=== PATIENT | male | born 1965 | race Two or more races ===

== ENCOUNTER 2024-08-28 13:49 | Outpatient (RCR) | payer MEDICAID, SELFPAY | END 2024-09-09 23:59 | disposition home or self-care (01) | LOC: SCTC 13:49 | PROVIDERS: PCP Family Medicine; Referring Provider Family Medicine; Visit Provider Nurse Practitioner Family | DX: D50.9 Iron deficiency anemia, unspecified (principal); I10 Essential (primary) hypertension; E11.9 Type 2 diabetes mellitus without complications | CPT/HCPCS: 99212; G0463 ==

== ENCOUNTER 2024-09-28 11:43 | Outpatient (RCR) | payer MEDICAID, SELFPAY | END 2024-10-10 23:59 | disposition home or self-care (01) | LOC: SCTC 11:43 | PROVIDERS: PCP Family Medicine; Referring Provider Family Medicine; Visit Provider Nurse Practitioner Family | DX: Z09 Encounter for follow-up examination after completed treatment for conditions other than malignant neoplasm (principal); Z86.2 Personal history of diseases of the blood and blood-forming organs and certain disorders involving the immune mechanism; I10 Essential (primary) hypertension; E11.9 Type 2 diabetes mellitus without complications | CPT/HCPCS: 99212; G0463 ==

== ENCOUNTER 2024-11-01 13:13 | Outpatient (RCR) | payer MEDICAID, SELFPAY | END 2024-11-10 23:59 | disposition home or self-care (01) | LOC: SCTC 13:13 | PROVIDERS: PCP Family Medicine; Referring Provider Family Medicine; Visit Provider Nurse Practitioner Family | DX: D50.9 Iron deficiency anemia, unspecified (principal); I10 Essential (primary) hypertension; E11.9 Type 2 diabetes mellitus without complications; Z79.4 Long term (current) use of insulin; Z79.84 Long term (current) use of oral hypoglycemic drugs | CPT/HCPCS: 96365; 96375; J2919; J3490; J7040; J7050; Q0138 ==

== ENCOUNTER 2024-11-16 07:43 | Outpatient (CLI) | payer MEDICAID, SELFPAY ==
[2024-11-15 12:10] LABS: Basophils % (Auto) 0 % (0-2.5); Eosinophils % (Auto) 0 % (0-10); Hematocrit 34.5 % (41.0-53.0); Hemoglobin 10.8 g/dL (13.5-16.0); Immature Granulocytes % (Auto) 3 % (0-0); Immature Granulocytes Auto 0.35 Thou/mm3 (0.00-0.00); Lymphocytes % (Auto) 8 % (10-50); Mean Corpuscular HGB Conc 31.3 g/dl (31.0-37.0); Mean Corpuscular Hemoglobin 26.9 pg (25.0-35.0); Mean Corpuscular Volume 86 fL (80-100); Monocytes # (Auto) 0.6 Thou/mm3 (0.0-0.8); Monocytes % (Auto) 5 % (0-12); Neutrophils # (Auto) 9.8 Thou/mm3 (1.8-7.7); Neutrophils % (Auto) 83 % (37-80); Nucleated Red Blood Cell % 0 /100 WBC (0); Platelet Count 243 Thou/mm3 (140-440); RDW Standard Deviation 51.2 fL (35.1-43.9); Red Blood Count 4.01 Miln/mm3 (4.50-5.90); White Blood Count 11.8 Thou/mm3 (3.8-10.6)
[2024-11-15 12:32] LABS: Blood Urea Nitrogen 25 mg/dL (9-23); Creatinine (Component) 0.9 mg/dL (0.6-1.3); eGFR > 60 See Note
[2024-11-15 13:06] LABS: INR 0.9 (0.9-1.3); Partial Thromboplastin Time 24.2 Seconds (22.0-36.0); Prothrombin Time 10.3 Seconds (9.0-12.2)
[2024-11-16] VITALS (7 sets, daily range): BP systolic 131–184; BP diastolic 75–95; PULSE 61–86; RESP 12–18; TEMP 36–36.8; O2SAT 98–100; BMI 24.9
--- NOTE | 2024-11-16 08:30 | XR_ITS ---
Examination: CT-guided percutaneous bone marrow aspiration right posterior superior iliac crest CT-guided percutaneous bone biopsy deep right posterior superior iliac crest CT pelvis without intravenous contrast INDICATIONS: Anemia unspecified etiology Date and time of procedure: November 16, 2024 0910 hours Informed consent provided. A timeout was completed verifying correct patient, procedure, site and positioning. Technique: Axial 3 mm sections were obtained for localization of the right posterior superior iliac crest Appropriate area is marked. The patient's site was prepped and draped in sterile fashion Maximal sterile barrier technique utilized, including hand hygiene Local anesthesia was obtained with 1% lidocaine. Low dose protocols were performed. One or more of the following dose reduction techniques were used; automated exposure control, adjustment of the mA and/or KV according to patient size, use of iterative reconstruction technique. Utilizing CT fluoroscopic guidance 14-gauge bone biopsy needle placed in the right posterior superior iliac crest 10 cc marrow aspirate obtained 5 cm bone core obtained Patient appears in stable condition during this procedure. At completion of the procedure, the patient is in satisfactory condition. Estimated blood loss 2 cc Complete pathology report to follow. Impression: Successful CT-guided percutaneous bone marrow aspiration right posterior superior iliac crest Successful CT-guided percutaneous bone biopsy deep right posterior superior iliac crest
[2024-11-16] MEDS: SODIUM CHLORIDE 0.9% 500 ML 500 ML 20 ML IV (09:10)
[2024-11-16] MEDS: fentaNYL CIT INJ 50 mCg/ML AMP 2ML IVP (09:23)
[2024-11-16 09:50] LABS: Flow Cytometry* See Sep Rpt
== END 2024-11-16 10:30 | disposition home or self-care (01) ==
LOC: SIRX 07:52
PROVIDERS: Radiology Diagnostic Radiology; PCP Family Medicine; Referring Provider Nurse Practitioner Family; Visit Provider Nurse Practitioner Family
DX: D50.9 Iron deficiency anemia, unspecified (principal); Z01.812 Encounter for preprocedural laboratory examination
CPT/HCPCS: 38221; 36415; 77012; 82565; 84520; 85025; 85610; 85730; J3010; J7040

== ENCOUNTER 2024-12-20 07:30 | Outpatient (RCR) | payer MEDICAID, SELFPAY | END 2025-01-08 23:59 | disposition home or self-care (01) | LOC: SCTC 07:30 | PROVIDERS: PCP Family Medicine; Referring Provider Family Medicine; Visit Provider Nurse Practitioner Family | DX: D50.9 Iron deficiency anemia, unspecified (principal); D72.829 Elevated white blood cell count, unspecified; I10 Essential (primary) hypertension; E11.9 Type 2 diabetes mellitus without complications | CPT/HCPCS: 99212; G0463 ==

== ENCOUNTER 2025-01-23 14:08 | Outpatient (RCR) | payer MEDICAID, SELFPAY | END 2025-02-07 23:59 | disposition home or self-care (01) | LOC: SCTC 14:08 | PROVIDERS: PCP Family Medicine; Referring Provider Family Medicine; Visit Provider Nurse Practitioner Family | DX: Z09 Encounter for follow-up examination after completed treatment for conditions other than malignant neoplasm (principal); Z86.2 Personal history of diseases of the blood and blood-forming organs and certain disorders involving the immune mechanism; R10.9 Unspecified abdominal pain; R07.9 Chest pain, unspecified; R06.02 Shortness of breath; R63.0 Anorexia; Z68.25 Body mass index [BMI] 25.0-25.9, adult; Z87.19 Personal history of other diseases of the digestive system | CPT/HCPCS: 99212; G0463 ==

== ENCOUNTER 2025-01-23 15:45 | Emergency (ER) | payer MEDICAID, SELFPAY ==
[2025-01-23 15:46] VITALS: BMI 28.3
[2025-01-23 16:03] VITALS: BP 168/71; PULSE 76; RESP 18; TEMP 36.9; O2SAT 99
--- NOTE | 2025-01-23 16:21 | XR_ITS ---
Examination: PA lateral chest 2 views Technique: Upright PA lateral chest 2 views Exam date and time: January 23, 2025 1719 hrs. Indications: Onset chest pain today Findings: Normal heart size No lobar pneumonia or pulmonary edema Right shoulder calcific tendinitis Impression: No pneumonia or pulmonary edema
--- NOTE | 2025-01-23 16:21 | EKG_ITS ---
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
--- NOTE | 2025-01-23 16:29 | XR_ITS ---
Examination: Ultrasound liver Elastography Exam date and time: January 23, 2025 1457 hrs. Indications: Alcohol abuse history several years, epigastric pain 3 weeks Findings: Liver 17.4 cm fatty infiltration Normal hepatopedal portal venous flow Patent hepatic veins Tissue stiffness average 1.5 mm/s, [id number] liver fibrosis Impression: Mild hepatomegaly fatty infiltration Wxuz-ik-qhzfevft liver fibrosis
--- NOTE | 2025-01-23 16:32 | PD.EDRME ---
Rapid Medical Screening Exam RME Arrival date/time: 01/23/25 15:45 Chief Complaint: Abdominal Pain Time Seen by Provider: 01/23/25 15:54 Vital signs: Vital Signs Temperature 98.4 F 01/23/25 16:03 Pulse Rate 76 01/23/25 16:03 Respiratory Rate 18 01/23/25 16:03 Blood Pressure 168/71 H 01/23/25 16:03 Pulse Oximetry (%) 99 01/23/25 16:03 Oxygen Delivery Method Room Air 01/23/25 16:03 Vital signs reviewed by provider: Yes RME Narrative: 59-year-old male, with a history of metabolic syndrome, duodenal and gastric ulcer, GI bleed, and iron deficiency anemia, presents to the ED with a complaint of ongoing abdominal pain in the pit of his stomach as well as shortness of breath. He was sent by his primary care physician for workup and evaluation. He has been having nausea but no vomiting, as well as constipation issues he denies any fever or chills, vomiting or diarrhea. His social history includes heavy EtOH abuse, quitting 30 years ago. I have greeted and performed a focused initial assessment of this patient. A comprehensive ED assessment and evaluation of the patient, analysis of all test results, and completion of the medical decision making process will be conducted by additional ED providers. Labs, urine, EKG, radiology studies ordered.
[2025-01-23 17:09] LABS: Basophils % (Auto) 0 % (0-2.5); Eosinophils % (Auto) 0 % (0-10); Hematocrit 39.1 % (41.0-53.0); Immature Granulocytes % (Auto) 3 % (0-0); Lymphocytes # (Auto) 0.7 Thou/mm3 (1.0-4.8); Lymphocytes % (Auto) 5 % (10-50); Mean Corpuscular HGB Conc 33.2 g/dl (31.0-37.0); Mean Corpuscular Hemoglobin 28.7 pg (25.0-35.0); Mean Corpuscular Volume 86 fL (80-100); Monocytes # (Auto) 0.7 Thou/mm3 (0.0-0.8); Monocytes % (Auto) 4 % (0-12); Neutrophils # (Auto) 13.1 Thou/mm3 (1.8-7.7); Neutrophils % (Auto) 88 % (37-80); Nucleated Red Blood Cell # 0.02 Thou/mm3 (0.00-0.00); Nucleated Red Blood Cell % 0 /100 WBC (0); Platelet Count 263 Thou/mm3 (140-440); RDW Standard Deviation 46.4 fL (35.1-43.9); Red Blood Count 4.53 Miln/mm3 (4.50-5.90); White Blood Count 14.9 Thou/mm3 (3.8-10.6)
[2025-01-23 17:16] LABS: Collection Type, Urine Clean Catch
[2025-01-23 17:20] LABS: Partial Thromboplastin Time 24.1 Seconds (22.0-36.0); Prothrombin Time 10.5 Seconds (9.0-12.2)
[2025-01-23 17:23] LABS: Alanine Aminotransferase 46 U/L (10-49); Albumin, Serum 4.1 gm/dL (3.4-4.8); Alkaline Phosphatase 70 U/L (46-116); Amylase 89 U/L (30-118); Anion Gap 9 (7-16); Aspartate Amino Transferase 21 U/L (0-34); B-Type Natriuretic Peptide 115 pg/mL (0-100); BUN/Creatinine Ratio 25 Ratio (12-20); Bilirubin,Total 0.2 mg/dL (0.3-1.2); Blood Urea Nitrogen 27 mg/dL (9-23); Calcium 10.4 mg/dL (8.3-10.6); Calcium (Corrected) 10.4 mg/dL (8.5-10.1); Carbon Dioxide 22.7 mMol/L (20.0-31.0); Chloride 108 mMol/L (98-107); Creatinine (Component) 1.1 mg/dL (0.6-1.3); Estimated Creatinine Clearance 56.2 mL/min (>60); Globulin 2.1 gm/dL (2.3-3.5); Glucose 169 mg/dL (74-106); LDH (Lactate Dehydrogenase) 278 U/L (120-246); Lipase 53 U/L (12-53); Magnesium 1.5 mg/dL (1.6-2.6); Osmolality,Calculated 288 (275-295); Potassium 4.1 mMol/L (3.4-5.1); Sodium 140 mMol/L (136-145); Total Protein 6.2 gm/dL (5.7-8.2); Troponin I < 0.020 ng/mL (0.0-0.045); eGFR > 60 See Note
[2025-01-23 17:24] LABS: Bilirubin,Urine Negative (Negative); Blood,Urine Negative (Negative); Clarity,Urine Clear (Clear/Hazy); Color,Urine Lt-Yellow (Lt Yel-Yel); Glucose, Urine Negative (Negative); Hyaline Casts,Urine < 1 /hpf (0-1); Ketones,Urine Negative (Negative); Leukocyte Esterase,Urine Negative (Negative); Nitrite,Urine Negative (Negative); Protein,Urine Trace (Neg - Trace); RBC,Urine 1 /hpf (0-3); Squamous Epithelial Cell,Urine < 1 /hpf (0-5); Urobilinogen,Urine Negative mg/dL (0.0-1.0); WBC,Urine 1 /hpf (0-5)
[2025-01-23 17:32] LABS: Ammonia < 10 uMol/L (11-32)
[2025-01-23 18:05] LABS: Hepatitis A Antibody IgM Non Reactive (Non React); Hepatitis B Core Antibody IgM Non Reactive (Non React); Hepatitis B Surface Antigen Non Reactive (Non React); Hepatitis C Antibody Non Reactive (Non React)
--- NOTE | 2025-01-23 18:46 | PD.EDABDPN ---
ED Abdominal Pain RME/HPI General Chief Complaint: Abdominal Pain Stated complaint: SENT BY PCP FOR ABD & CP X3 WEEKS WITH SOB Time seen by provider: 01/23/25 15:54 Arrival date/time: 01/23/25 15:45 RME / HPI RME / HPI narrative: 59-year-old male, with a history of metabolic syndrome, duodenal and gastric ulcer, GI bleed, and iron deficiency anemia, presents to the ED with a complaint of ongoing abdominal pain in the pit of his stomach as well as shortness of breath. He was sent by his primary care physician for workup and evaluation. He has been having nausea but no vomiting, as well as constipation issues he denies any fever or chills, vomiting or diarrhea. His social history includes heavy EtOH abuse, quitting 30 years ago. I have greeted and performed a focused initial assessment of this patient. A comprehensive ED assessment and evaluation of the patient, analysis of all test results, and completion of the medical decision making process will be conducted by additional ED providers. Labs, urine, EKG, radiology studies ordered. This section includes all my notes and documentations, including HPI, PE, and ED course. Amilcar James MD HPI: 59yo male with a history of DM, HTN, HLD presents to the ED for a chief complaint of epigastric pain x 10 days. No radiation or migration. Patient reports associated nonbloody N/V. He denies any fever, chills, dysuria, back pain or any other associated symptoms. Denies any alcohol use. No other complaints reported. ROS: All negative except as documented in HPI. Physical Exam: General: Alert and oriented. No acute distress when remaining still. Eyes: Conjunctivae and lids clear. ENT: No nasal congestion. Neck: Supple. Heart: RRR. Lungs: No respiratory distress. Good air movement. No rhonchi, wheezing, rales. Abdomen: Soft and nontender. Legs: No clubbing, cyanosis, edema. Skin: Warm and dry. Neuro: Alert and oriented X 3. I reviewed all diagnostic test results. My interpretation of the chest x-ray is no acute findings. My review of the US liver report is no acute findings. Blood tests and urine tests unremarkable, except Mg 1.5. At this point, diagnoses include stomach ulcer. Prescribed famotidine and omeprazole and magnesium oxide for hypomagnesemia and recommended more outpatient workup. Based on my best medical judgment, made decision no further evaluation or treatment indicated at this time. Patient understands and agrees to the discharge instructions customized and printed, see below. Discharge instructions from Dr. James: ?After evaluation, your symptoms are due to stomach ulcer (see attached handout). ?To help heal the ulcer, take Omeprazole 40 mg every morning and Famotidine 40 mg at bedtime for a month. ?Zofran for nausea/vomiting. Clear liquid diet for 24 hours. Then slowly advance diet as tolerated. ?Avoid food and beverages that can trigger and worsen ulcers. See attached handout. Take magnesium pills as prescribed. Your magnesium level was low. ?See a private doctor on 01/24/25. Ask to review all test results and official radiology reports, to make sure you receive all necessary follow-ups and monitoring. To make sure there is no serious intra-abdominal condition, ask for help with more investigation not available here in the ER. Such as EGD or scoping the stomach, colonoscopy or scoping the colon, and referral to see physician in private practice. ?Seek immediate medical care with worsening or with any concerns. Amilcar James MD Related Data Home Medications ?Medication ?Instructions ?Recorded ?Confirmed atorvastatin 40 mg tablet 40 mg PO QPM 12/29/18 11/16/24 empagliflozin 25 mg tablet 25 mg PO DAILY 11/25/19 11/16/24 (Jardiance) hydrochlorothiazide 12.5 mg tablet 12.5 mg PO QDAY 11/25/19 11/16/24 metformin 1,000 mg tablet 1,000 mg PO BID 11/25/19 11/16/24 duloxetine 30 mg capsule,delayed 30 mg PO DAILY 05/13/23 11/16/24 release ferrous sulfate 325 mg (65 mg 325 mg PO DAILY 05/13/23 11/16/24 iron) tablet (FeroSul) latanoprost 0.005 % eye drops 1 drp ophthalmic (eye) HS 05/13/23 05/13/23 levothyroxine 50 mcg tablet 50 mcg PO DAILY 05/13/23 11/16/24 benazepril 40 mg tablet 40 mg PO DAILY 11/16/24 11/16/24 omeprazole 20 mg capsule,delayed 20 mg PO BID 02/06/25 02/06/25 release Previous Rx's ?Medication ?Instructions ?Recorded cyclobenzaprine 10 mg tablet 10 mg PO TID PRN muscle spasm #14 11/25/19 tabs cefdinir 300 mg capsule 300 mg PO BID #16 caps 05/16/23 finasteride 5 mg tablet 5 mg PO QDAY #30 tabs 05/16/23 hydrocodone 5 mg-acetaminophen 325 1 tab PO Q8H PRN pain #10 tabs 05/16/23 mg tablet lisinopril 2.5 mg tablet 10 mg (4 x 2.5 mg) PO QDAY #120 05/16/23 tabs pantoprazole 40 mg tablet,delayed 40 mg PO QDAY #30 tabs 05/16/23 release (Protonix) sucralfate 100 mg/mL oral 1 g (10 mL) PO QID #200 mL 05/16/23 suspension tamsulosin 0.4 mg capsule 0.4 mg PO QDAY #30 caps 05/16/23 pantoprazole 40 mg tablet,delayed 40 mg PO QAM #10 tabs 03/26/24 release (Protonix) famotidine 40 mg tablet 40 mg PO .bedtime #30 tabs 01/23/25 magnesium oxide 400 mg PO BID #60 caps 01/23/25 omeprazole 40 mg capsule,delayed 40 mg PO QDAY #30 caps 01/23/25 release ondansetron 4 mg disintegrating 4 mg PO TID PRN nausea and 01/23/25 tablet vomiting 30 days #10 tabs Allergies Allergy/AdvReac Type Severity Reaction Status Date / Time No Known Allergies Allergy Verified 01/23/25 15:52 Review of Systems Review of Systems Systems Reviewed: All systems reviewed, normal except as documented Past Medical History Past Medical History NEUROLOGIC: Negative Neurological Disorders, Seizures or Epilepsy CARDIAC: Positive Hypercholesterolemia, Edema and Hypertension; Negative Cardiac Disorders, Atrial Fibrillation, Angina, Atherosclerotic Heart Disease, Aneurysm or Congestive Heart Failure RESPIRATORY: Negative Chronic Obstructive Pulmonary Disease (COPD) or Asthma GASTROINTESTINAL: Negative Gastrointestinal Disorders or Cirrhosis GENITOURINARY: Negative Genitourinary Disorders or Renal Disease MUSCULOSKELETAL: Positive Arthritis; Negative Musculoskeletal Disorders ENT: Positive Cataracts ENDOCRINE: Positive Endocrine Disorders and Diabetes Mellitus Type 2; Negative Diabetes Mellitus Type 1 HEMATOLOGIC: Positive Blood Disorders and Anemia; Negative Sickle Cell Disease PSYCHO/SOCIAL: Positive Anxiety; Negative Depression OTHER HISTORY: Negative Autoimmune Disease, Blood Transfusions, Blood Transfusion Reaction, Anesthesia Reactions, Organ Transplant, Clostridium Difficile or Cancer Family History FAMILY HISTORY: Positive Family Cancer and Family Surgery; Negative Family Psychiatric Problems, Family Respiratory Disorders, Family Cardiac Disorders, Family Gastrointestinal Problems or Family Anesthesia Reaction Surgical History SURGICAL: Positive Ear Surgery, Eye Surgery and Abdominal Surgery; Negative Cardiac Surgery, Pacemaker, Endocrine Surgery, Nose Surgery, Oral Surgery, Joint Replacement or Organ Transplant Social History SMOKING STATUS: Never smoker SUBSTANCE USE: does not use ED Exam Narrative Physical exam: As noted in HPI. Course Quality Measures none Orders Category Date Time Status EKG (ED ONLY) *Do not use* NOW Care 01/23/25 16:21 Completed Hep [Insert IV] NOW Care 01/23/25 16:19 Active NPO STAT Care 01/23/25 16:19 Active EKG (ED Only) Stat Exams 01/23/25 16:21 Ordered US elastography Stat Exams 01/23/25 16:29 Completed XR chest 2V Stat Exams 01/23/25 16:21 Completed Ammonia Stat Lab 01/23/25 16:46 Completed Amylase Stat Lab 01/23/25 16:46 Completed B-Type Natriuretic Peptide Stat Lab 01/23/25 16:46 Completed CBC Stat Lab 01/23/25 16:46 Completed Comprehensive Metabolic Panel Stat Lab 01/23/25 16:46 Completed Hepatitis Acute Panel Stat Lab 01/23/25 16:46 Completed LDH (Lactate Dehydrogenase) Stat Lab 01/23/25 16:46 Completed Lipase Stat Lab 01/23/25 16:46 Completed Magnesium Stat Lab 01/23/25 16:46 Completed Partial Thromboplastin Time Stat Lab 01/23/25 16:46 Completed Prothrombin Time with INR Stat Lab 01/23/25 16:46 Completed Troponin I Stat Lab 01/23/25 16:46 Completed Urinalysis Stat Lab 01/23/25 17:01 Completed Vital Signs Vital signs: Vital Signs Temperature 98.4 F 01/23/25 16:03 Pulse Rate 76 01/23/25 16:03 Respiratory Rate 18 01/23/25 16:03 Blood Pressure 168/71 H 01/23/25 16:03 Pulse Oximetry (%) 99 01/23/25 16:03 Oxygen Delivery Method Room Air 01/23/25 16:03 Abdominal Pain MDM MDM Narrative MDM Narrative:: Scribe Attestation: 01/23/25 Ally Maher am scribing for and in the presence of Dr. James. Patient data External records reviewed:: [facility] previous records (Per chart review, patient was seen here on 03/26/24 for abdominal pain.) Clinical information provided by:: patient Social determinants that could affect healthcare access:: none Patient has the following chronic illnesses:: DM, HTN, HLD How is presenting disease/condition affected by chronic disease/condition?: uneffected by Evaluation data The following diagnostics were reviewed and interpreted by me:: lab results, radiology exam(s) and EKG tracing(s) Lab and/or radiology exams considered but not ordered:: none Interpretation Summary: Normal diagnostics except Mg 1.5 Medications / Prescriptions Medications or Prescriptions considered but not ordered:: none Medication administrations:: none Consultations Consultation(s) initiated? (list below): No Diagnosis Differential diagnosis abdominal pain: acute appendicitis, calculus of kidney, constipation, diverticulitis, gastroenteritis, pancreatitis and small bowel obstruction Most likely diagnosis given after review of the tests above:: Stomach ulcer Admission Indicated Admission indicated?: not indicated Explain why admission is indicated or not indicated:: No criteria for admission. Admission Request Was there a request for admission?: No Disposition Plan Disposition Plan: Discharge Discharge Attestation Discharge Attestation: The patient and all family members were given an opportunity to ask questions and understood the discharge instructions. Discharge instructions specifically effects, indications for sooner follow up or return to the emergency department, and the expected course of current diagnosis. Patient condition: Stable Discharge Plan Plan Patient Disposition: HOME (Self Care) Prescriptions/Referrals Prescriptions/Med Rec: New famotidine 40 mg tablet 40 mg PO .bedtime Qty: 30 0RF omeprazole 40 mg capsule,delayed release(DR/EC) 40 mg PO QDAY Qty: 30 0RF ondansetron 4 mg tablet,disintegrating 4 mg PO TID PRN (Reason: nausea and vomiting) 30 Days Qty: 10 0RF magnesium oxide 400 mg magnesium capsule 400 mg PO BID Qty: 60 0RF No Action atorvastatin 40 mg Tablet 40 mg PO QPM metformin 1,000 mg Tablet 1,000 mg PO BID hydrochlorothiazide 12.5 mg Tablet 12.5 mg PO QDAY Jardiance 25 mg Tablet 25 mg PO DAILY cyclobenzaprine 10 mg tablet 10 mg PO TID PRN (Reason: muscle spasm) Qty: 14 0RF latanoprost 0.005 % drops 1 drp OPHTHALMIC (EYE) HS Patient Comments: place 1 drop into both eyes every evening levothyroxine 50 mcg tablet 50 mcg PO DAILY ferrous sulfate [FeroSul] 325 mg (65 mg iron) tablet 325 mg PO DAILY Patient Comments: take 1 tablet by mouth once daily duloxetine 30 mg capsule,delayed release(DR/EC) 30 mg PO DAILY Patient Comments: take 1 capsule by mouth once daily sucralfate 100 mg/mL Suspension 1 g PO QID Qty: 200 0RF tamsulosin 0.4 mg Capsule 0.4 mg PO QDAY Qty: 30 0RF lisinopril 2.5 mg Tablet 10 mg PO QDAY Qty: 120 0RF finasteride 5 mg Tablet 5 mg PO QDAY Qty: 30 0RF pantoprazole [Protonix] 40 mg tablet,delayed release (DR/EC) 40 mg PO QDAY Qty: 30 0RF cefdinir 300 mg capsule 300 mg PO BID Qty: 16 0RF hydrocodone-acetaminophen 5-325 mg tablet 1 tab PO Q8H MDD 3 tabs PRN (Reason: pain) Qty: 10 0RF pantoprazole [Protonix] 40 mg tablet,delayed release (DR/EC) 40 mg PO QAM Qty: 10 0RF omeprazole 20 mg capsule,delayed release(DR/EC) 20 mg PO BID Patient Comments: take 1 capsule by mouth 30 MINUTES PRIOR TO BREAKFAST/OTHER MEDS twice a day benazepril 40 mg tablet 40 mg PO DAILY Patient Comments: take 1 tablet by mouth once daily Referrals: No Primary/Family,Physician [Primary Care Provider] - In 1 week Problem List Clinical Impression: Stomach ulcer Patient/Caregiver Discharge Instructions Discharge Activity: activity as tolerated Education Materials: ED PEPTIC ULCER vs GASTRITIS Additional Instructions: Discharge instructions from Dr. James: ?After evaluation, your symptoms are due to stomach ulcer (see attached handout).? ?To help heal the ulcer, take Omeprazole 40 mg every morning and Famotidine 40 mg at bedtime for a month. ?Zofran for nausea/vomiting.? Clear liquid diet for 24 hours.? Then slowly advance diet as tolerated. ?Avoid food and beverages that can trigger and worsen ulcers.? See attached handout. Take magnesium pills as prescribed. Your magnesium level was low. ?See a private doctor on 01/24/25. Ask to review all test results and official radiology reports, to make sure you receive all necessary follow-ups and monitoring. To make sure there is no serious intra-abdominal condition, ask for help with more investigation not available here in the ER.? Such as EGD or scoping the stomach, colonoscopy or scoping the colon, and referral to see physician in private practice. ?Seek immediate medical care with worsening or with any concerns. Instrucciones de david del Dr. James: ?Despu?s de la evaluaci?n, mahendra s?ntomas se deben a sahra ?lcera estomacal (pietro folleto adjunto). ?Para ayudar a cicatrizar la ?lcera, tome 40 mg de omeprazol todas las ma?anas y 40 mg de famotidina antes de acostarse medhat un mes. ?Zofran para las n?useas y los v?mitos. Dieta l?quida medhat 24 horas. Luego, aumente gradualmente la dieta seg?n la tolerancia. ?Evite alimentos y bebidas que puedan desencadenar y empeorar las ?lceras. Pietro folleto adjunto. [place] las pastillas de magnesio seg?n lo prescrito. Barton nivel de magnesio era bajo. ?Consulte con un m?dico particular el 24/01/2025. Solicite la revisi?n de todos los resultados de las pruebas y los informes radiol?gicos oficiales para asegurarse de recibir todos los controles y monitoreos necesarios. Para asegurarse de que no haya sahra afecci?n intraabdominal grave, solicite ayuda con m?s pruebas que no est?n disponibles en urgencias. [place] EGD o endoscopia g?strica, colonoscopia o endoscopia de colon, y derivaci?n a un gastroenter?logo. ?Busque atenci?n m?dica inmediata si presenta empeoramiento o cualquier inquietud. Print Language: Bahraini Stand Alone Forms: Samantha Award Info., Patient Portal Info Letter
== END 2025-01-23 19:14 | disposition home or self-care (01) ==
PROVIDERS: Physician Assistant; Emergency Provider Emergency Medicine
DX: K25.9 Gastric ulcer, unspecified as acute or chronic, without hemorrhage or perforation (principal); R94.31 Abnormal electrocardiogram [ECG] [EKG]; E78.00 Pure hypercholesterolemia, unspecified; I10 Essential (primary) hypertension; F10.21 Alcohol dependence, in remission
CPT/HCPCS: 36415; 71046; 76981; 80053; 80074; 81001; 82140; 82150; 83615; 83690; 83735; 83880; 84484; 85025; 85610; 85730; 93005; 99284

== ENCOUNTER → 2025-02-08 | Outpatient (CLI) | payer MEDICAID, SELFPAY ==
--- NOTE | 2025-02-08 08:26 | XR_ITS ---
Examination: Metastatic bone survey, 15 views TECHNIQUE: Tawnya lateral skull, AP pelvis, lateral C-spine, lateral T-spine, lateral lumbar spine, AP right humerus, AP left humerus, AP right forearm, AP left forearm, AP right femur, AP left femur, AP right tibia-fibula, AP left tibia fibula, AP chest 15 views Exam date and time: February 09, 2024 2100 hours INDICATIONS: Clinical diagnosis multiple myeloma FINDINGS: Osteolytic lesions are not confirmed in the visualized bones Mild old compression T12 No fractures Soft tissue vascular calcification IMPRESSION: No findings diagnostic for round cell tumor involvement such as multiple myeloma or osseous metastatic disease
== END | disposition home or self-care (01) ==
PROVIDERS: PCP Family Medicine; Referring Provider Nurse Practitioner Family; Visit Provider Nurse Practitioner Family
DX: D50.9 Iron deficiency anemia, unspecified (principal)
CPT/HCPCS: 77074

== ENCOUNTER 2025-02-12 08:47 | Outpatient (RCR) | payer MEDICAID, SELFPAY | END 2025-03-10 23:59 | disposition home or self-care (01) | LOC: SCTC 08:47 | PROVIDERS: PCP Family Medicine; Referring Provider Family Medicine; Visit Provider Internal Medicine Hematology & Oncology | DX: D64.9 Anemia, unspecified (principal); K57.90 Diverticulosis of intestine, part unspecified, without perforation or abscess without bleeding | CPT/HCPCS: 99212; G0463 ==

== ENCOUNTER 2025-02-24 01:47 | Inpatient (IN) | payer MEDICAID, SELFPAY ==
[2025-02-24] VITALS (24 sets, daily range): BP systolic 89–149; BP diastolic 57–91; PULSE 85–112; RESP 12–100; TEMP 36.1–37.2; O2SAT 95–100; BMI 23.3
--- NOTE | 2025-02-24 01:48 | EKG_ITS ---
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
--- NOTE | 2025-02-24 02:44 | PD.EDCHEST ---
ED Chest Pain RME/HPI General Chief Complaint: Chest Pain Stated Complaint: CHEST PAIN Time Seen by Provider: 02/24/25 02:35 Arrival date/time: 02/24/25 01:47 RME / HPI RME / HPI narrative: Dr. Hardy?s Main ED Evaluation: 59yo male with a history of DM, HTN, HLD presents to the ED for a chief complaint of diffuse chest pain x 1300. Patient states his entire body hurts , but reports his chest hurts the most. Patient reports associated shortness of breath, generalized weakness, back pain, mild headache, N/V, and sweating. Patient denies any fever, chills, dysuria or any other associated symptoms. Patient is not on any blood thinners. He denies any history of tobacco, alcohol or illicit drug use. NKA. Related Data Home Medications ?Medication ?Instructions ?Recorded ?Confirmed atorvastatin 40 mg tablet 40 mg PO QPM 12/29/18 11/16/24 empagliflozin 25 mg tablet 25 mg PO DAILY 11/25/19 11/16/24 (Jardiance) hydrochlorothiazide 12.5 mg tablet 12.5 mg PO QDAY 11/25/19 11/16/24 metformin 1,000 mg tablet 1,000 mg PO BID 11/25/19 11/16/24 duloxetine 30 mg capsule,delayed 30 mg PO DAILY 05/13/23 11/16/24 release ferrous sulfate 325 mg (65 mg 325 mg PO DAILY 05/13/23 11/16/24 iron) tablet (FeroSul) latanoprost 0.005 % eye drops 1 drp ophthalmic (eye) HS 05/13/23 05/13/23 levothyroxine 50 mcg tablet 50 mcg PO DAILY 05/13/23 11/16/24 benazepril 40 mg tablet 40 mg PO DAILY 11/16/24 11/16/24 omeprazole 20 mg capsule,delayed 20 mg PO BID 11/16/24 11/16/24 release Previous Rx's ?Medication ?Instructions ?Recorded cyclobenzaprine 10 mg tablet 10 mg PO TID PRN muscle spasm #14 11/25/19 tabs cefdinir 300 mg capsule 300 mg PO BID #16 caps 05/16/23 finasteride 5 mg tablet 5 mg PO QDAY #30 tabs 05/16/23 hydrocodone 5 mg-acetaminophen 325 1 tab PO Q8H PRN pain #10 tabs 05/16/23 mg tablet lisinopril 2.5 mg tablet 10 mg (4 x 2.5 mg) PO QDAY #120 05/16/23 tabs pantoprazole 40 mg tablet,delayed 40 mg PO QDAY #30 tabs 05/16/23 release (Protonix) sucralfate 100 mg/mL oral 1 g (10 mL) PO QID #200 mL 05/16/23 suspension tamsulosin 0.4 mg capsule 0.4 mg PO QDAY #30 caps 05/16/23 pantoprazole 40 mg tablet,delayed 40 mg PO QAM #10 tabs 03/26/24 release (Protonix) famotidine 40 mg tablet 40 mg PO .bedtime #30 tabs 01/23/25 magnesium oxide 400 mg PO BID #60 caps 01/23/25 omeprazole 40 mg capsule,delayed 40 mg PO QDAY #30 caps 01/23/25 release Allergies Allergy/AdvReac Type Severity Reaction Status Date / Time No Known Allergies Allergy Verified 02/24/25 01:48 Review of Systems Review of Systems Systems Reviewed: All systems reviewed, normal except as documented ED Exam Narrative Physical exam: GENERAL APPEARANCE: alert and oriented x 4, well-developed, well-nourished, appears uncomfortable VITALS: All vitals were reviewed and the pulse ox is 100% on room air, which is normal according to my interpretation. HEENT: Normocephalic, atraumatic; pupils equal, round, reactive to light; EOMI; mucous membranes pink, moist; oropharynx clear NECK: Supple LUNGS: CTABL; no wheezes, no rales, no rhonchi HEART: Regular rate, regular rhythm; normal S1, S2; no murmurs ABDOMEN: non distended; normal BS; soft, no tenderness, no guarding, no rebound; no masses, no organomegaly, no hernia BACK: no CVA tenderness EXTREMITIES: atraumatic; no edema NEUROLOGIC: awake; alert and oriented x4; cranial nerves II-XII grossly intact; no focal sensory or motor deficits PSYCHIATRIC: appropriate mood and affect SKIN: warm, dry, 5 cm ecchymotic lesion to the right mid grier; no rashes Course Course Course Narrative: CXR is ordered for determining the etiology of chest pain. 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 Care 02/24/25 02:51 Active Continuous Pulse Oximetry ONCE Care 02/24/25 02:51 Completed EKG (ED ONLY) *Do not use* NOW Care 02/24/25 01:48 Completed Insert IV STAT Care 02/24/25 02:51 Active Transfuse,blood/blood products NOW Care 02/24/25 03:[address] chest abdomen pelvis w Stat Exams 02/24/25 02:53 Ordered EKG (ED Only) Stat Exams 02/24/25 01:48 Draft XR chest 1V portable Stat Exams 02/24/25 02:51 Taken B-Type Natriuretic Peptide Stat Lab 02/24/25 03:12 Completed CBC Stat Lab 02/24/25 03:12 Completed Comprehensive Metabolic Panel Stat Lab 02/24/25 03:12 Completed Lipase Stat Lab 02/24/25 03:12 Completed Magnesium Stat Lab 02/24/25 03:12 Completed Partial Thromboplastin Time Stat Lab 02/24/25 03:12 [address]pleted [address] Review Blood Smear Stat Lab 02/24/25 03:12 Completed Prothrombin Time with INR Stat Lab 02/24/25 03:12 Completed Troponin I Stat Lab 02/24/25 03:12 Completed Type and Screen Stat Lab 02/24/25 03:37 Ordered prbc [Red Blood Cells] Stat Lab 02/24/25 03:37 Ordered Morphine Inj Med 02/24/25 04:08 Discontinued 2 mg IVP X1 ONE Ondansetron Inj [Zofran Inj] Med 02/24/25 04:08 Discontinued 4 mg IV X1 ONE Sodium Chloride 0.9% 1000 ml [Ns] 1,000 ml Med 02/24/25 02:51 Discontinued IV 999 mls/hr Sodium Chloride 0.9% 1000 ml [Ns] 1,000 ml Med 02/24/25 03:04 Discontinued IV 999 mls/hr Vital Signs Vital signs: Vital Signs Temperature 97.9 F 02/24/25 02:00 Pulse Rate 104 H 02/24/25 02:00 Respiratory Rate 19 02/24/25 02:00 Blood Pressure 89/60 L 02/24/25 02:00 Pulse Oximetry (%) 100 02/24/25 02:00 Oxygen Delivery Method Room Air 02/24/25 02:00 Chest Pain MDM Narrative MDM Narrative:: Scribe Attestation: 02/24/25 - I, Ally Ceja, am scribing for and in the presence of Dr. Hardy. Rectal exam shows melena, guaiac positive stool. 0600: Care signed out to Dr. Harkins (emergency physician). Past medical, surgical, social and family history reviewed. Vitals and home medications reviewed. Results and treatment plan discussed. They will assume the care of the patient at this time and will follow the patient, pending CT chest abdomen pelvis. Patient data External records reviewed:: [facility] previous records (Per chart review, patient was seen here on 01/23/25 for a stomach ulcer.) Clinical information provided by:: patient Social determinants that could affect healthcare access:: none Patient has the following chronic illnesses:: DM, HTN, HLD How is presenting disease/condition affected by chronic disease/condition?: uneffected by Evaluation data The following diagnostics were reviewed and interpreted by me:: lab results, radiology exam(s) and EKG tracing(s) Lab and/or radiology exams considered but not ordered:: none Interpretation Summary: WBC count is elevated at 16.4, HnH is low at 6.1/19.2, Potassium is 5.5, Glucose is 315, Troponin is normal, BNP is normal, Lipase is normal, according to my interpretation. CXR shows normal cardiac silhouette, normal sharp diaphragmatic edge, no infiltrates, normal costophrenic angles, according to my interpretation. EKG done at 0158, sinus tachycardia, rate of 104, left axis deviation, no ectopy, LVH, peaked T waves in V2 and V3, no STEMI, according to my interpretation. Medications / Prescriptions Medications or Prescriptions considered but not ordered:: none Medication administrations:: Medication Administration History Discontinued Medications Sodium Chloride (Ns) 1,000 mls @ 999 mls/hr IV .Q1H1M ONE Stop: 02/24/25 03:51 Last Infusion: 02/24/25 04:10 Dose: Infused Documented By: Admin: 02/24/25 03:37 Dose: 999 mls/hr Documented By: KIMMY Sodium Chloride (Ns) 1,000 mls @ 999 mls/hr IV .Q1H1M ONE Stop: 02/24/25 04:04 Morphine Sulfate (Morphine Sulf Inj 10 Mg/Ml Vial) 2 mg IVP X1 ONE Stop: 02/24/25 04:09 Last Admin: 02/24/25 04:31 Dose: 2 mg Documented By: KIMMY Ondansetron HCl (Ondansetron Inj 2 Mg/Ml Inj 2 Ml) 4 mg IV X1 ONE; Protocol Stop: 02/24/25 04:09 Last Admin: 02/24/25 04:31 Dose: 4 mg Documented By: KIMMY see above Consultations Consultation(s) initiated? (list below): No Diagnosis Chest Pain Differential Diagnosis: other (PUD, AV malformation, diverticulitis, STEMI, NSTEMI) Most likely diagnosis given after review of the tests above:: final dx pending at sign out Admission Indicated Admission indicated?: not indicated Admission Request Was there a request for admission?: No Disposition Plan Disposition Plan: other (specify) (Signed out to Dr. Harkins at [address] chest abdomen pelvis.) Discharge Plan Prescriptions/Referrals Prescriptions/Med Rec: No Action atorvastatin 40 mg Tablet 40 mg PO QPM metformin 1,000 mg Tablet 1,000 mg PO BID hydrochlorothiazide 12.5 mg Tablet 12.5 mg PO QDAY Jardiance 25 mg Tablet 25 mg PO DAILY cyclobenzaprine 10 mg tablet 10 mg PO TID PRN (Reason: muscle spasm) Qty: 14 0RF latanoprost 0.005 % drops 1 drp OPHTHALMIC (EYE) HS Patient Comments: place 1 drop into both eyes every evening levothyroxine 50 mcg tablet 50 mcg PO DAILY ferrous sulfate [FeroSul] 325 mg (65 mg iron) tablet 325 mg PO DAILY Patient Comments: take 1 tablet by mouth once daily duloxetine 30 mg capsule,delayed release(DR/EC) 30 mg PO DAILY Patient Comments: take 1 capsule by mouth once daily sucralfate 100 mg/mL Suspension 1 g PO QID Qty: 200 0RF tamsulosin 0.4 mg Capsule 0.4 mg PO QDAY Qty: 30 0RF lisinopril 2.5 mg Tablet 10 mg PO QDAY Qty: 120 0RF finasteride 5 mg Tablet 5 mg PO QDAY Qty: 30 0RF pantoprazole [Protonix] 40 mg tablet,delayed release (DR/EC) 40 mg PO QDAY Qty: 30 0RF cefdinir 300 mg capsule 300 mg PO BID Qty: 16 0RF hydrocodone-acetaminophen 5-325 mg tablet 1 tab PO Q8H MDD 3 tabs PRN (Reason: pain) Qty: 10 0RF pantoprazole [Protonix] 40 mg tablet,delayed release (DR/EC) 40 mg PO QAM Qty: 10 0RF omeprazole 20 mg capsule,delayed release(DR/EC) 20 mg PO BID Patient Comments: take 1 capsule by mouth 30 MINUTES PRIOR TO BREAKFAST/OTHER MEDS twice a day benazepril 40 mg tablet 40 mg PO DAILY Patient Comments: take 1 tablet by mouth once daily famotidine 40 mg tablet 40 mg PO .bedtime Qty: 30 0RF omeprazole 40 mg capsule,delayed release(DR/EC) 40 mg PO QDAY Qty: 30 0RF magnesium oxide 400 mg magnesium capsule 400 mg PO BID Qty: 60 0RF Referrals: Jorge Corado PA-C [Primary Care Provider] - In 1 week Problem List Clinical Impression: Anemia, Chest pain Patient/Caregiver Discharge Instructions Print Language: Tamazight
--- NOTE | 2025-02-24 02:51 | XR_ITS ---
Examination: AP chest single view TECHNIQUE: AP portable upright chest single view Date and time: February 24, 2025, 0320 hours INDICATIONS: Chest pain today. FINDINGS: Normal heart size Lungs are clear. Osseous structures are intact IMPRESSION: No active disease
--- NOTE | 2025-02-24 02:53 | XR_ITS ---
Examination: CT chest with intravenous contrast CT abdomen with intravenous contrast CT pelvis with intravenous contrast 2-D coronal and sagittal reconstructions Time of exam: February 24, 2025 at 0615 hours INDICATIONS: Generalized chest and abdominal pain today CTDI: vol (mGy) : 6.47 DLP: (mGycm): 480 Technique: Multiple axial images of the chest, abdomen and pelvis with intravenous contrast, 3.0 mm slice thickness. Images obtained post intravenous injection Isovue 370 60 cc. 2-D sagittal and coronal reconstructions. Low dose protocols were performed. One or more of the following dose reduction techniques were used; automated exposure control, adjustment of the mA and/or KV according to patient size, use of iterative reconstruction technique. Findings: No thoracic aortic aneurysm dilatation Pulmonary artery segments are not enlarged No pulmonary artery filling defects Mild prominence left ventricle No paratracheal tracheobronchial or bronchopulmonary adenopathy Mild prominence pulmonary vasculature. No pneumonia, pulmonary edema or pulmonary mass lesions Gastric mucosa is thickened especially in the gastric antrum, axial image 153 No focal liver lesions No gallstones Spleen is not enlarged No pancreatic mass Normal adrenal glands Perinephric stranding, no renal or ureteral calculi, no hydronephrosis Normal appendix Trace free fluid in the abdomen Colonic diverticulosis No abdominal or pelvic abscess AP prostate dimension 4.3 cm Mild thickening urinary bladder wall up to 5 mm Prominent osteopenia Stable mild wedging T12 vertebral body compared with March 25, 2024 IMPRESSION: Negative for pulmonary artery emboli No pneumonia, pulmonary edema or pulmonary mass lesion Gastritis pattern Significant perinephric stranding, consider urinary tract infection Normal appendix Mild thickening of the urinary bladder wall, cystitis pattern, clinical correlation advised
[2025-02-24 03:20] LABS: Basophils % (Auto) 0 % (0-2.5); Eosinophils % (Auto) 0 % (0-10); Immature Granulocytes % (Auto) 8 % (0-0); Immature Granulocytes Auto 1.31 Thou/mm3 (0.00-0.00); Lymphocytes % (Auto) 6 % (10-50); Mean Corpuscular HGB Conc 31.8 g/dl (31.0-37.0); Mean Corpuscular Hemoglobin 28.5 pg (25.0-35.0); Mean Corpuscular Volume 90 fL (80-100); Monocytes # (Auto) 1.2 Thou/mm3 (0.0-0.8); Monocytes % (Auto) 7 % (0-12); Neutrophils # (Auto) 12.8 Thou/mm3 (1.8-7.7); Neutrophils % (Auto) 78 % (37-80); Nucleated Red Blood Cell # 0.06 Thou/mm3 (0.00-0.00); Nucleated Red Blood Cell % 0 /100 WBC (0); Platelet Count 189 Thou/mm3 (140-440); RDW Standard Deviation 46.6 fL (35.1-43.9); Red Blood Count 2.14 Miln/mm3 (4.50-5.90); White Blood Count 16.4 Thou/mm3 (3.8-10.6)
[2025-02-24 03:33] LABS: Hemoglobin 6.1 g/dL (13.5-16.0)
[2025-02-24 03:34] LABS: Hematocrit 19.2 % (41.0-53.0)
[2025-02-24 03:35] LABS: Path Review Blood Smear Sent to Pathologist
[2025-02-24] MEDS: SODIUM CHLORIDE 0.9% 1000 ML 1,000 ML 999 ML IV (03:37)
[2025-02-24 03:39] LABS: B-Type Natriuretic Peptide 22 pg/mL (0-100); Prothrombin Time 11.1 Seconds (9.0-12.2)
[2025-02-24 03:40] LABS: Alanine Aminotransferase 23 U/L (10-49); Alkaline Phosphatase 45 U/L (46-116); Anion Gap 14 (7-16); Aspartate Amino Transferase 10 U/L (0-34); BUN/Creatinine Ratio 59 Ratio (12-20); Blood Urea Nitrogen 71 mg/dL (9-23); Calcium 9.1 mg/dL (8.3-10.6); Calcium (Corrected) 9.9 mg/dL (8.5-10.1); Carbon Dioxide 19.9 mMol/L (20.0-31.0); Chloride 109 mMol/L (98-107); Creatinine (Component) 1.2 mg/dL (0.6-1.3); Estimated Creatinine Clearance 56.2 mL/min (>60); Glucose 315 mg/dL (74-106); Lipase 41 U/L (12-53); Magnesium 1.8 mg/dL (1.6-2.6); Osmolality,Calculated 317 (275-295); Potassium 5.5 mMol/L (3.4-5.1); Sodium 143 mMol/L (136-145); Troponin I < 0.020 ng/mL (0.0-0.045); eGFR > 60 See Note
[2025-02-24 03:50] LABS: Albumin/Globulin Ratio 2.1 (1.2-2.2); Bilirubin,Total < 0.2 mg/dL (0.3-1.2); Globulin 1.4 gm/dL (2.3-3.5); Total Protein 4.4 gm/dL (5.7-8.2)
[2025-02-24] MEDS: MORPHINE SULF INJ 10 MG/ML VIAL 2 MG IVP (04:31)
[2025-02-24] MEDS: ONDANSETRON INJ 2 MG/ML INJ 2 ML 4 MG IV ×2 (04:31→09:55)
--- NOTE | 2025-02-24 05:42 | PD.RESHP ---
Documentation for date of: 02/24/25 [facility] History of Present Illness History of present illness: Mr. Ceja is a 59-year-old male with past medical history of hypertension, hyperlipidemia, diabetes mellitus, hypothyroidism, BPH and gastric/duodenal ulcers who presented to [facility] emergency department on 02/24/2025 with a chief complaint of generalized weakness and chest pain. Patient complains of chest pain retrosternal, severe, 10 on 10, reported that his pain started earlier today this afternoon. Patient also complains of generalized weakness, generalized body pain and significant abdominal pain. Patient reports that he has been feeling generally weak for the last couple of weeks, also complains of associated shortness of breath, nausea vomiting and sweating. Patient also endorses dark stools for the last couple of days, is on iron tablets. Patient does have a history of duodenal ulcer, was found to have large duodenal ulcer covering the superior part of duodenum in 2022. Patient does have bruises on bilateral upper extremities and right lower extremity, patient attributes the bruises to his work in [employer]. Patient otherwise denies any dizziness, falls and passing out. ED Course: ED Vitals: On presentation in ED blood pressure 89/6 0, heart rate 104, respiratory rate 19, temp 97.9, O2 sat 100 on room air ED Labs: ED labs significant for WBC count 16.4, RBC 2.14, hemoglobin 6.1, hematocrit 19.2, APTT 20, potassium 5.5, chloride 109, bicarb 19.9, BUN 71, creatinine 1.2, GFR more than 60, glucose 315, osmolality 317, total bilirubin less than 0.2, alk phos 45, total protein 4.4, albumin 3.0, globulin 1.4 ED Imaging: Chest x-ray on presentation is unremarkable, pending official read. EKG shows sinus tachycardia ED Treatment:Patient was given 1 L NS bolus in ED, morphine 2 mg IV x 1 and Zofran 4 mg IV x 1 in ED 2 unit PRBC was ordered, pending transfusion Review of Systems Review of Systems Narrative Review of Systems: ROS: -CONSTITUTIONAL: Denies weight loss, fever and chills. Positive for generalized weakness. -HEENT: Denies changes in vision and hearing. -RESPIRATORY: Positive for SOB and denies cough. -CV: Denies palpitations and positive for Chest Pain. -GI: Positive for abdominal pain, nausea, vomiting, denies constipation and diarrhea. -: Denies dysuria and urinary frequency. -MSK: Denies myalgia and joint pain. -SKIN: Denies rash and pruritus. Positive for multiple bruises on bilateral upper extremity and right lower extremity. -NEUROLOGICAL: Denies headache and syncope. -PSYCHIATRIC: Denies recent changes in mood. Denies anxiety and depression. Past Medical History Past Medical History Comments PMH COMMENT: PMH: Positive for hypertension, hyperlipidemia, diabetes mellitus, hypothyroidism, BPH and gastric/duodenal ulcers PSHx: Inguinal hernia, cataract, EGD Allergies: No known drug and food allergies Social history: -Smoking: Denies -Alcohol Use: Denies -Illicit Drug Use: Denies -Martial Status: Patient lives with girlfriend, has kids in [place] Family History: Denies any pertinent family history Exam Vital Signs Temp Pulse Resp BP Pulse Ox O2 Del Method 97.9 F 86 17 115/57 L 100 Room Air 02/24/25 02:00 02/24/25 04:04 02/24/25 04:04 02/24/25 04:04 02/24/25 04:04 02/24/25 04:04 Narrative Exam Physical Exam General: Awake and in no acute distress. Conversational and non-toxic appearing. Tired and lethargic. HEENT: Normocephalic, atraumatic, mucous membranes moist. Heart: Tachycardic, ? Murmur right upper sternal border Lungs: Clear to auscultation with no wheezing or crackles. Abdomen: Soft, nondistended, epigastric tenderness, positive bowel sounds. Neurologic: Alert and oriented x3, no gross neurological deficit, and patient able to move all 4 extremities. Extremities: 1+ pitting bilateral lower extremity edema Skin: No rash, multiple but lateral upper extremity ecchymosis noted, right lower extremity ecchymosis noted as well. Results: Labs 02/24/25 03:12 02/24/25 03:12 Labs: Short CBC 02/24/25 Range/Units 03:12 WBC 16.4 H (3.8-10.6) Thou/mm3 Hgb 6.1 L* (13.5-16.0) g/dL Hct 19.2 L* (41.0-53.0) % Plt Count 189 D (140-440) Thou/mm3 BMP 02/24/25 03:12 Sodium 143 Potassium 5.5 H Chloride 109 H Carbon Dioxide 19.9 L BUN 71 H Creatinine 1.2 Glucose 315 H Calcium 9.1 Cardiac Enzymes 02/24/25 Range/Units 03:12 Troponin I < 0.020 (0.0-0.045) ng/mL Liver Function 02/24/25 Range/Units 03:12 Total Bilirubin < 0.2 L (0.3-1.2) mg/dL AST 10 (0-34) U/L ALT 23 (10-49) U/L Alkaline Phosphatase 45 L (46-116) U/L Albumin 3.0 L (3.4-4.8) gm/dL Quality Measures Quality Measures none Medications Home Medications and Allergies Home Medications ?Medication ?Instructions ?Recorded ?Confirmed ?Type atorvastatin 40 mg tablet 40 mg PO QPM 12/29/18 11/16/24 History empagliflozin 25 mg tablet 25 mg PO DAILY 11/25/19 11/16/24 History (Jardiance) hydrochlorothiazide 12.5 mg tablet 12.5 mg PO QDAY 11/25/19 11/16/24 History metformin 1,000 mg tablet 1,000 mg PO BID 11/25/19 11/16/24 History duloxetine 30 mg capsule,delayed 30 mg PO DAILY 05/13/23 11/16/24 History release ferrous sulfate 325 mg (65 mg 325 mg PO DAILY 05/13/23 11/16/24 History iron) tablet (FeroSul) latanoprost 0.005 % eye drops 1 drp ophthalmic (eye) HS 05/13/23 05/13/23 History levothyroxine 50 mcg tablet 50 mcg PO DAILY 05/13/23 11/16/24 History benazepril 40 mg tablet 40 mg PO DAILY 11/16/24 11/16/24 History omeprazole 20 mg capsule,delayed 20 mg PO BID 11/16/24 11/16/24 History release Allergies Allergy/AdvReac Type Severity Reaction Status Date / Time No Known Allergies Allergy Verified 02/24/25 01:48 Visit Medications Acetaminophen (Acetaminophen 325 Mg Tablet) 325 mg PO Q6H PRN PRN Reason: Pain (1-3) & Fever >100.4 Stop: 03/26/25 05:29 Dextrose (Dextrose 50%-Water Inj 50 Ml Syringe) 25 ml IV Q15MIN PRN PRN Reason: BG 50-70 responsive npo pt Stop: 03/26/25 05:37 Dextrose (Dextrose 50%-Water Inj 50 Ml Syringe) 50 ml IV Q15MIN PRN PRN Reason: BG <50 OR BG <70 & pt unresponsive Stop: 03/26/25 05:37 Glucagon (Glucagon Inj 1 Mg Vial) 1 mg IM Q15MIN PRN PRN Reason: BG <70, and no IV access Lactated Ringer's (Lactated Ringers) 1,000 mls @ 75 mls/hr IV .[id number] [facility] Stop: 02/24/25 18:49 Insulin Human Lispro (Insulin Lispro (Admelog) 1 Unit/0.01 Ml Unit) 0 unit SC AC [facility]; Protocol Stop: 03/26/25 07:29 Levothyroxine Sodium (Levothyroxine Sodium 25 Mcg Tablet) [facility] Stop: 03/26/25 05:59 Ondansetron HCl (Ondansetron Inj 2 Mg/Ml Inj 2 Ml) 4 mg IV Q6H PRN; Protocol PRN Reason: NAUSEA OR VOMITING Stop: 03/26/25 05:29 Pantoprazole Sodium (Pantoprazole Inj 40 Mg Vial) 40 mg IVP Q12HR [facility] Stop: 03/26/25 08:59 Discontinued Medications Sodium Chloride (Ns) 1,000 mls @ 999 mls/hr IV .Q1H1M ONE Stop: 02/24/25 03:51 Last Infusion: 02/24/25 04:10 Dose: Infused Sodium Chloride (Ns) 1,000 mls @ 999 mls/hr IV .Q1H1M ONE Stop: 02/24/25 04:04 Last Admin: 02/24/25 05:40 Dose: Not Given Morphine Sulfate (Morphine Sulf Inj 10 Mg/Ml Vial) 2 mg IVP X1 ONE Stop: 02/24/25 04:09 Last Admin: 02/24/25 04:31 Dose: 2 mg Ondansetron HCl (Ondansetron Inj 2 Mg/Ml Inj 2 Ml) 4 mg IV X1 ONE; Protocol Stop: 02/24/25 04:09 Last Admin: 02/24/25 04:31 Dose: 4 mg Assessment & Plan Plan Assessment and plan: Summary: Mr. Ceja is a 59-year-old male with past medical history of hypertension, hyperlipidemia, diabetes mellitus, hypothyroidism, BPH and gastric/duodenal ulcers who presented to [facility] emergency department on 02/24/2025 with a chief complaint of generalized weakness and chest pain. Patient admitted for further workup. #Symptomatic normocytic normochromic anemia #GI bleed workup #History of duodenal ulcer, PUD Patient has generalized weakness, shortness of breath, epigastric tenderness, retrosternal pain. Patient does have history of peptic ulcer disease, did have a duodenal ulcer back in 2022, follows up with primary care physician regularly, is taking medications for PUD. Patient did present with hemoglobin 6.1, hematocrit 19.2. Occult blood positive. Patient has elevated BUN, possibility of upper GI bleed versus lower GI bleed. Plan: - Ordered 2 unit PRBC, pending transfusion, follow posttransfusion H&H - Patient was given 1 L NS bolus, started on maintenance fluids - Ordered reticulocyte count, iron panel, vitamin B12 level, LDH - Started on Protonix 40 twice daily - N.p.o., will schedule for EGD after GI consult - GI consulted, appreciate recommendations - Monitor CBC, transfuse if hemoglobin less than 7 - Monitor blood pressure closely #Bilateral upper extremity ecchymosis Patient has bilateral upper extremity ecchymosis, attributes it to work in [place]. Patient did get bone marrow biopsy, was not enough specimen to rule out MDS. -Order smear, follow PT/INR, follow HIV, hepatitis panel, ESR CRP #Electrolyte imbalance #Hyperkalemia Patient was given IV fluids, will repeat BMP later today. #Hypertension #Hyperlipidemia Blood pressure soft, will hold antihypertensives Pending med reconciliation #Diabetes mellitus -Sliding scale insulin -Fingerstick monitoring -hypoglycemia protocol - Follow A1c #Hypothyroidism Per medication review patient on levothyroxine 50 mcg daily, patient refused taking medication Follow TSH and free T4 #BPH Pending med reconciliation DVT prophylaxis: SCDs GI prophylaxis: Protonix twice daily Diet: N.p.o. Lines: Peripheral IV Code status: Full code Case discussed with Attending Dr. Chavez. Gaston Marin PGY1 Disclaimer: This note was dictated by speech recognition. Minor errors in circuit board drafter may be present due to voice recognition software. Attending Provider Attestation/Addendum I have examined the patient, reviewed labs and imaging findings, discussed the case with the resident(s), and reviewed entered orders. I agree with the plan of care as outlined in this note, with these additional summaries/recommendations: 59-year-old male with past medical history of gastric and duodenal ulcers presented to the ED with chief complaint of diffuse weakness and fatigue. Patient found to have a hemoglobin of 6.0 with last check at 13, symptomatic and hypotensive. Given fluids and 1 unit PRBCs and GI consulted for eval of possible upper GI bleed with melena. Mango Chavez MD
[2025-02-24 05:58] LABS: OBS Developer Lot # 23003; OBS Performed By chavm1; OBS QC OK? Yes; Occult Blood, Stool Positive (Negative)
--- NOTE | 2025-02-24 06:07 | PD.EDADDENDU ---
Emergency Room Addendum Addendum Narrative: 0600: Care assumed from Dr. Hardy (emergency physician). Past medical, surgical, social and family history reviewed. Vitals and home medications reviewed. Results and treatment plan discussed. They will assume the care of the patient at this time and will follow the patient, pending CT. The following addendum documentation note is intended to reflect any pending information, findings, or radiology results not included in the patient?s initial chart by the previous shift scribe. RADIOLOGY Chest/Abdomen/Pelvis CT Patient: ISABEL STONE. Record#: [id number] Birthdate: 1965 Age/Sex: 59 / M Location: [address] Att[address] Dr: Mango Chavez MD Ordering Physician: Te Hardy MD Date of Service: 02/24/25 Procedure(s): CT chest abdomen pelvis w Accession Number(s): [id number] cc: Jorge Corado PA-C; John Abbott MD; Te Hardy MD~ Examination: CT chest with intravenous contrast CT abdomen with intravenous contrast CT pelvis with intravenous contrast 2-D coronal and sagittal reconstructions Time of exam: February 24, 2025 at 0615 hours INDICATIONS: Generalized chest and abdominal pain today CTDI: vol (mGy) : 6.47 DLP: (mGycm): 480 Technique: Multiple axial images of the chest, abdomen and pelvis with intravenous contrast, 3.0 mm slice thickness. Images obtained post intravenous injection Isovue 370 60 cc. 2-D sagittal and coronal reconstructions. Low dose protocols were performed. One or more of the following dose reduction techniques were used; automated exposure control, adjustment of the mA and/or KV according to patient size, use of iterative reconstruction technique. Findings: No thoracic aortic aneurysm dilatation. Pulmonary artery segments are not enlarged. No pulmonary artery filling defects. Mild prominence left ventricle. No paratracheal tracheobronchial or bronchopulmonary adenopathy. Mild prominence pulmonary vasculature. No pneumonia, pulmonary edema or pulmonary mass lesions. Gastric mucosa is thickened especially in the gastric antrum, axial image 153. No focal liver lesions. No gallstones. Spleen is not enlarged. No pancreatic mass. Normal adrenal glands. Perinephric stranding, no renal or ureteral calculi, no hydronephrosis. Normal appendix. Trace free fluid in the abdomen. Colonic diverticulosis. No abdominal or pelvic abscess. AP prostate dimension 4.3 cm. Mild thickening urinary bladder wall up to 5 mm. Prominent osteopenia. Stable mild wedging T12 vertebral body compared with March 25, 2024. IMPRESSION: Negative for pulmonary artery emboli. No pneumonia, pulmonary edema or pulmonary mass lesion Gastritis pattern. Significant perinephric stranding, consider urinary tract infection Normal appendix. Mild thickening of the urinary bladder wall, cystitis pattern, clinical correlation advised. Dictated By: John Abbott MD Signed By: <Electronically signed by John Abbott MD in OV> 02/24/25 0645 0743: Dr. Alanis made aware of the patient?s HPI, PMHx, lab and/or radiology results. Discussed treatment plan.
[2025-02-24] MEDS: RINGERS LACTATED 1000 ML 1,000 ML 75 ML IV (06:36)
[2025-02-24 06:53] LABS: Ferritin 37 ng/mL (10.5-307.3); Iron 66 mcg/dL (65-175); Percent Iron Saturation 30 % (20-55); Total Iron Binding Capacity 216 mcg/dL (250-425); Unsaturated Iron Binding 150 (225-295)
[2025-02-24 07:54] LABS: Anion Gap 11 (7-16); BUN/Creatinine Ratio 73 Ratio (12-20); Blood Urea Nitrogen 73 mg/dL (9-23); C-Reactive Protein < 0.5 mg/dL (0.0-0.9); Calcium 8.7 mg/dL (8.3-10.6); Chloride 112 mMol/L (98-107); Estimated Creatinine Clearance 67.5 mL/min (>60); Free T4 (Free Thyroxine) 1.19 ng/dL (0.89-1.76); Glucose 257 mg/dL (74-106); LDH (Lactate Dehydrogenase) 161 U/L (120-246); Osmolality,Calculated 317 (275-295); Potassium 4.9 mMol/L (3.4-5.1); Sodium 144 mMol/L (136-145); Thyroid Stimulating Hormone 1.29 uIU/mL (0.55-4.78); eGFR > 60 See Note
[2025-02-24] MEDS: INSULIN LISPRO (AdmeLOG) 1 UNIT/0.01 ML UNIT SC ×2 (08:00→11:46)
[2025-02-24] MEDS: PANTOPRAZOLE INJ 40 MG VIAL 80 MG IVP ×2 (08:03→20:23)
--- NOTE | 2025-02-24 08:22 | ESPR_ITS ---
<Statement entered by Sofi Ronquillo MD - 02/25/25 17:42> Patient was seen and examined at bedside, agree on the assessment and plan on this note. - Patient's plan and care discussed with my attending, Dr. Jermaine Ronquillo MD Internal Medicine PGY-2 Documentation for date of: 02/24/25 Subjective Subjective Interval history: Patient Albanian-speaking and interaction facilitated by registered healthcare assistant clinical nurse manager Patient was seen and examined at bedside this AM. No acute exents overnight. Patient npo, adequate urine output and mentation is at baseline. Patient endorses improvement of chest pain. Hb and HCT 6.1 & 19.2. Two units PRBCs transfused. Posttransfusion H&H ordered Gastroenterology, Dr. Alanis closely following the case. Appreciate recommendations Significant periorbital and lower extremity edema. BNP 22, liver and kidney function within normal limits. 24-hour urine protein ordered Exam Vital Signs Temp Pulse Resp BP Pulse Ox O2 Del Method 98.4 F 102 H 12 115/65 99 Room Air 02/24/25 08:00 02/24/25 08:00 02/24/25 08:00 02/24/25 08:00 02/24/25 08:00 02/24/25 06:00 Narrative Exam Constitutional Alert, oriented x 3 and comfortable. Elderly male, periorbital edema, mucous membrane pale and dry HEENT Vision grossly intact. Patent nares. Trachea midline Respiratory Chest normal on inspection and clear auscultation bilaterally Cardiovascular S1 and S2 audible, RRR. No murmurs carotid bruit. No gross JVD. Abdominal Soft, distended and generalized tenderness to palpation in all quadrants, no signs of guarding or rebound. Para-umbilical hernia on the right Genitourinary No bladder tenderness, no flank pain. Normal to palpation Musculoskeletal Extremities tone within normal limits. 2+ pitting edema up to knees bilaterally Neurological CN II - XII grossly intact. Extremity motor and sensation grossly intact. Skin Warm, dry and intact. Multiple purpura and ecchymosis on shins and upper extremities bilaterally Psychiatric Patient has good affect, is cooperative Objective Labs 02/25/25 03:16 02/25/25 11:24 Labs: Laboratory Results - last 24 hr 02/24/25 02/24/25 02/24/25 02:19 03:12 04:16 WBC 16.4 H RBC 2.14 L Hgb 6.1 L* Hct 19.2 L* MCV 90 MCH 28.5 MCHC 31.8 RDW Std Deviation 46.6 H Plt Count 189 D Neut % (Auto) 78 Lymph % (Auto) 6 L [place] % (Auto) 7 Eos % (Auto) 0 Baso % (Auto) 0 Neut # (Auto) 12.8 H Lymph # (Auto) 1.0 [place] # (Auto) 1.2 H Eos # (Auto) 0.0 Baso # (Auto) 0.0 Immature Gran # (Auto) 1.31 H Absolute Nucleated RBC 0.06 H Immature Gran % 8 H Nucleated RBC % 0 Smear Path Review Sent to Pathologist Retic Count (auto) Absolute Retic Immature Retic Fraction Retic Hgb Content CHr PT 11.1 INR 1.0 APTT 20.0 L Sodium 143 Potassium 5.5 H Chloride 109 H Carbon Dioxide 19.9 L Anion Gap 14 BUN 71 H Creatinine 1.2 Estim Creat Clear Calc 56.2 L eGFR > 60 BUN/Creatinine Ratio 59 H Glucose 315 H Calculated Osmolality 317 H Calcium 9.1 Corrected Calcium 9.9 Magnesium 1.8 Iron 66 TIBC 216 L Iron Saturation 30 Unsat Iron Binding 150 L Ferritin 37 Total Bilirubin < 0.2 L AST 10 ALT 23 Alkaline Phosphatase 45 L Lactate Dehydrogenase Troponin I < 0.020 C-Reactive Prot, Quant B-Natriuretic Peptide 22 Total Protein 4.4 L Albumin 3.0 L Globulin 1.4 L Albumin/Globulin Ratio 2.1 Lipase 41 TSH Free T4 Stool Occult Blood Crossmatch See Detail 02/24/25 02/24/25 05:44 06:41 WBC RBC Hgb Hct MCV MCH MCHC RDW Std Deviation Plt Count Neut % (Auto) Lymph % (Auto) [place] % (Auto) Eos % (Auto) Baso % (Auto) Neut # (Auto) Lymph # (Auto) [place] # (Auto) Eos # (Auto) Baso # (Auto) Immature Gran # (Auto) Absolute Nucleated RBC Immature Gran % Nucleated RBC % Smear Path Review Retic Count (auto) Cancelled Absolute Retic Cancelled Immature Retic Fraction Cancelled Retic Hgb Content CHr Cancelled PT INR APTT Sodium 144 Potassium 4.9 D Chloride 112 H Carbon Dioxide 21.0 Anion Gap 11 BUN 73 H Creatinine 1.0 Estim Creat Clear Calc 67.5 eGFR > 60 BUN/Creatinine Ratio 73 H Glucose 257 H D Calculated Osmolality 317 H Calcium 8.7 Corrected Calcium Magnesium Iron TIBC Iron Saturation Unsat Iron Binding Ferritin Total Bilirubin AST ALT Alkaline Phosphatase Lactate Dehydrogenase 161 Troponin I C-Reactive Prot, Quant < 0.5 B-Natriuretic Peptide Total Protein Albumin Globulin Albumin/Globulin Ratio Lipase TSH 1.29 Free T4 1.19 Stool Occult Blood Positive A Crossmatch Quality Measures Quality Measures none Assessment & Plan Assessment Current Active Medications: Generic Name Dose Route Start Last Admin Trade Name Freq PRN Reason Stop Dose Admin Acetaminophen 325 mg 02/24/25 05:30 Acetaminophen 325 Mg Tablet PO 03/26/25 05:29 Q6H PRN Pain (1-3) & Fever >100.4 Dextrose 25 ml 02/24/25 05:38 Dextrose 50%-Water Inj 50 Ml Syringe IV 03/26/25 05:37 Q15MIN PRN BG 50-70 responsive npo pt Dextrose 50 ml 02/24/25 05:38 Dextrose 50%-Water Inj 50 Ml Syringe IV 03/26/25 05:37 Q15MIN PRN BG <50 OR BG <70 & pt unresponsive Glucagon 1 mg 02/24/25 05:38 Glucagon Inj 1 Mg Vial IM Q15MIN PRN BG <70, and no IV access Lactated Ringer's 1,000 mls @ 75 mls/hr 02/24/25 05:30 02/24/25 06:36 Lactated Ringers IV 02/24/25 18:49 75 mls/hr .[id number] EL Administration Insulin Human Lispro 0 unit 02/24/25 07:30 02/24/25 08:00 Insulin Lispro (Admelog) 1 Unit/0.01 Ml Unit SC 03/26/25 07:29 2 unit AC EL Administration Protocol Ondansetron HCl 4 mg 02/24/25 05:30 Ondansetron Inj 2 Mg/Ml Inj 2 Ml IV 03/26/25 05:29 Q6H PRN NAUSEA OR VOMITING Protocol Pantoprazole Sodium 40 mg 02/24/25 21:00 Pantoprazole Inj 40 Mg Vial IVP 03/26/25 20:59 Q12HR EL Plan Mr. Ceja is a 59-year-old male with past medical history of primary hypertension, hyperlipidemia, dgd-pwltvji-unaukfpsm diabetes mellitus type 2, hypothyroidism, BPH and gastric/duodenal ulcers who presented to [facility] emergency department on 02/24/2025 with a chief complaint of generalized weakness and chest pain. Patient admitted for further workup. Acute blood loss anemia secondary to GI bleed for investigation Symptomatic anemia History of duodenal ulcer, PUD s/p endoclips 2022 Presented with SOB, chest pain. Endorsed dark stools for the past week On exam as pale and dry mucous membranes, generalized abdominal pain. DDx: Duodenal ulcer, internal hemorrhoids, esophageal varices, angiodysplasia. Chest/abdomen/pelvis CT showed gastritis pattern, significant perinephric stranding. Mild thickening of the urinary bladder wall, cystitis pattern. Plan: ? Keep n.p.o. ? Protonix 80 Mg IV x 1. Then Protonix 40 Mg IV twice daily ? Started on octreotide infusion ? For possible EGD by GI ? Gastroenterology, Dr. Alanis closely following the case. Appreciate recommendations Periorbital edema Bilateral lower extremity edema DDx: Nephrotic syndrome, CHF, cirrhosis, ANJEL Significant periorbital and lower extremity edema. BNP 22, liver and kidney function within normal limits. 24-hour urine protein ordered Plan: - 24 hour urine protein Bilateral upper extremity ecchymosis Patient has bilateral upper extremity ecchymosis, attributes it to work in [place]. Patient did get bone marrow biopsy, was not enough specimen to rule out MDS. INR 1, HIV 1 and 2 antibody nonreactive Plan: ? Pending hepatitis panel Hyperkalemia?resolved K 5.6 --> 4.9 Primary Hypertension Hyperlipidemia Currently BP 115/65 Plan: ? Antihypertensives on hold due to GI bleeding evidence of blood pressure Upx-bdrcfwl-orsxcruls diabetes mellitus type 2 -Sliding scale insulin -Fingerstick monitoring -hypoglycemia protocol Hypothyroidism Per medication review patient on levothyroxine 50 mcg daily, patient refused taking medication TSH 1.29, free T4 1.19 Plan: - To Resume home medication BPH Home medication finasteride and tamsulosin Plan: ? In-N-Out catheter as needed ? Resume Flomax once GI bleed resolved Health maintenance: Disposition: PRBC transfusion. GI consult Diet: N.p.o. Lines: pIVs GI Prophylaxis: Pantoprazole 40 Mg IV twice daily Thrombo Prophylaxis: SCDs Code status: FULL CODE Plan of care discussed with Attending Dr. Dean and PGY 2 Dr[address] Shima Azevedo MD PGY 1 Disclaimer: This note was dictated by speech recognition. Minor errors in resource agent may be present due to voice recognition software. Attending Provider Attestation/Addendum I have examined the patient, reviewed labs and imaging findings, discussed the case with the resident(s), and reviewed entered orders. I agree with the plan of care as outlined in this note, with these additional summaries/recommendations: Patient seen at bedside. Patient admitted overnight for symptomatic anemia and GI bleed. He is seen receiving PRBC transfusion at bedside and will follow-up posttransfusion H&H. Transfuse for hemoglobin less than 7. Avoid all chemical anticoagulation. Patient has a history of duodenal/gastric ulcer. He is endorsing abdominal pain. CT abdomen/pelvis was obtained which only revealed gastritis pattern, perinephric stranding, and mild thickening of bladder wall. Continue IV fluids and octreotide drip for now. Continue PPI. N.p.o. for endoscopy today. Continue insulin sliding scale for diabetes mellitus type 2. Patient also noted to have bilateral lower extremity edema but denies a history of heart failure. When able we will start diuresis and patient will need to follow-up with outpatient cardiology. Repeat hematology and chemistry panel in AM. Please see residents note for additional details of management. Dr. Jermaine MD
[2025-02-24 09:09] LABS: Sed Rate (ESR) < 1 mm/hr (0-20)
[2025-02-24 09:19] LABS: Immature Reticulocyte Fraction 33.6 % (2.3-13.4); Reticulocyte % (Auto) 4.9 % (0.5-1.5); Reticulocyte Hgb Content 31.3 pg (28.0-35.0)
[2025-02-24] MEDS: OCTREOTIDE ACET INJ 50 mCg/ML VIAL IV (09:49)
[2025-02-24] MEDS: OCTREOTIDE ACET INJ 1,000 MCG in SODIUM CHLORIDE 0.9% 100 ML 5.1 MCG IV (09:50)
[2025-02-24 10:16] LABS: HIV (1&2) Antibody Rapid Non-Reactive
[2025-02-24] MEDS: RINGERS LACTATED 1000 ML 1,000 ML 74 ML IV (10:18)
--- NOTE | 2025-02-24 10:58 | PC.CC ---
Patient is a 59 year old male who presents to the hospital for GI Bleed Workup. Peggy DIETRICH made ghcn-gl-ndyx contact with patient. ASW introduced self, role, and reason for visit. Patient appeared alert and oriented to self, location, and situation. Patient was pleasant and engaged in initial assessment. At bedside was patient's Carie Eduardo whom patient provided verbal consent to remain in room during assessment and engage in assessment. Patient confirmed information on demographics and reports his medical decision maker is his , Carie Eduardo. At home patient ambulates independently and is able to complete his own ADLs. Patient does not use any DME. Patient receives primary care with Jorge Simpson and uses [facility] in [place] for prescription medications. Upon discharge patient plans to return home. donor services specialist to follow up with any discharge needs.
[2025-02-24] MEDS: cefTRIAXone/D5w 1gm IV premix 1 GM/50 ML BAG IV (11:50)
[2025-02-24 12:12] LABS: Collection Type, Urine Clean Catch; Squamous Epithelial Cell,Urine 0 /hpf (0-5)
[2025-02-24 12:26] LABS: Bilirubin,Urine Negative (Negative); Blood,Urine Negative (Negative); Clarity,Urine Clear (Clear/Hazy); Glucose, Urine 1+ (Negative); Ketones,Urine Trace (Negative); Leukocyte Esterase,Urine Negative (Negative); Nitrite,Urine Negative (Negative); Protein,Urine Negative (Neg - Trace); RBC,Urine 2 /hpf (0-3); Urobilinogen,Urine Negative mg/dL (0.0-1.0); WBC,Urine 1 /hpf (0-5)
[2025-02-24 12:28] LABS: Color,Urine Lt-Yellow (Lt Yel-Yel)
[2025-02-24 16:03] LABS: Hematocrit 24.7 % (41.0-53.0)
[2025-02-24 16:07] LABS: Hemoglobin 8.6 g/dL (13.5-16.0)
[2025-02-24 16:35] LABS: Alanine Aminotransferase 19 U/L (10-49); Albumin, Serum 2.7 gm/dL (3.4-4.8); Albumin/Globulin Ratio 1.9 (1.2-2.2); Alkaline Phosphatase 37 U/L (46-116); Anion Gap 12 (7-16); Aspartate Amino Transferase < 8 U/L (0-34); BUN/Creatinine Ratio 71 Ratio (12-20); Bilirubin,Total 0.3 mg/dL (0.3-1.2); Blood Urea Nitrogen 78 mg/dL (9-23); Calcium 8.7 mg/dL (8.3-10.6); Calcium (Corrected) 9.7 mg/dL (8.5-10.1); Carbon Dioxide 20.9 mMol/L (20.0-31.0); Chloride 114 mMol/L (98-107); Creatinine (Component) 1.1 mg/dL (0.6-1.3); Estimated Creatinine Clearance 61.3 mL/min (>60); Globulin 1.4 gm/dL (2.3-3.5); Glucose 251 mg/dL (74-106); Osmolality,Calculated 323 (275-295); Potassium 5.2 mMol/L (3.4-5.1); Sodium 147 mMol/L (136-145); Total Protein 4.1 gm/dL (5.7-8.2); eGFR > 60 See Note
--- NOTE | 2025-02-24 17:05 | PD.IMCONS ---
HPI Data of Consult Requesting Physician: Mango Chavez MD Primary Care Provider: Jorge Corado PA-C Consult Narrative Reason for consult: Melena, posthemorrhagic anemia requiring blood transfusion History of present illness: 59 years old male being evaluated at the request of the emergency room team as well as internal medicine team Patient presented to the hospital with generalized weakness chest pain and dark stools She was found to have a hemoglobin hematocrit 6.1 and 19.2 since then he has been transfused and the current hemoglobin is 8.3 Patient does have a history of essential hypertension hyperlipidemia hypothyroidism BPH and has a previous history of gastric ulcer and a duodenal ulcer cc:: cc: Mango Chavez MD Review of Systems Review of Systems Systems Reviewed: All systems reviewed, normal except as documented Past Medical History Surgical History OTHER SURGICAL HX: As in the history of present illness Meds Home Medications and Allergies Home Medications ?Medication ?Instructions ?Recorded ?Confirmed ?Type atorvastatin 40 mg tablet 40 mg PO QPM 12/29/18 11/16/24 History empagliflozin 25 mg tablet 25 mg PO DAILY 11/25/19 11/16/24 History (Jardiance) hydrochlorothiazide 12.5 mg tablet 12.5 mg PO QDAY 11/25/19 11/16/24 History metformin 1,000 mg tablet 1,000 mg PO BID 11/25/19 11/16/24 History duloxetine 30 mg capsule,delayed 30 mg PO DAILY 05/13/23 11/16/24 History release ferrous sulfate 325 mg (65 mg 325 mg PO DAILY 05/13/23 11/16/24 History iron) tablet (FeroSul) latanoprost 0.005 % eye drops 1 drp ophthalmic (eye) HS 05/13/23 05/13/23 History levothyroxine 50 mcg tablet 50 mcg PO DAILY 05/13/23 11/16/24 History benazepril 40 mg tablet 40 mg PO DAILY 11/16/24 11/16/24 History omeprazole 20 mg capsule,delayed 20 mg PO BID 11/16/24 11/16/24 History release Allergies Allergy/AdvReac Type Severity Reaction Status Date / Time No Known Allergies Allergy Verified 02/24/25 01:48 Exam Vital Signs Temp Pulse Resp BP Pulse Ox O2 Del Method O2 Flow Rate 98.4 F 97 16 101/76 100 Room Air 100 02/24/25 14:51 02/24/25 14:51 02/24/25 14:51 02/24/25 14:51 02/24/25 14:51 02/24/25 14:51 02/24/25 09:45 Constitutional Comments: Alert oriented Routine Respiratory Exam Comments: Normal to auscultation Routine Abdominal Exam Comments: Soft nontender Results Labs 02/24/25 15:43 02/24/25 15:43 Labs: Short CBC 02/24/25 02/24/25 Range/Units 03:12 15:43 WBC 16.4 H (3.8-10.6) Thou/mm3 Hgb 6.1 L* 8.6 L D (13.5-16.0) g/dL Hct 19.2 L* 24.7 L (41.0-53.0) % Plt Count 189 D (140-440) Thou/mm3 BMP 02/24/25 02/24/25 02/24/25 03:12 06:41 15:43 Sodium 143 144 147 H Potassium 5.5 H 4.9 D 5.2 H Chloride 109 H 112 H 114 H Carbon Dioxide 19.9 L 21.0 20.9 BUN 71 H 73 H 78 H Creatinine 1.2 1.0 1.1 Glucose 315 H 257 H D 251 H Calcium 9.1 8.7 8.7 Cardiac Enzymes 02/24/25 Range/Units 03:12 Troponin I < 0.020 (0.0-0.045) ng/mL Liver Function 02/24/25 02/24/25 Range/Units 03:12 15:43 Total Bilirubin < 0.2 L 0.3 (0.3-1.2) mg/dL AST 10 < 8 (0-34) U/L ALT 23 19 (10-49) U/L Alkaline Phosphatase 45 L 37 L (46-116) U/L Albumin 3.0 L 2.7 L (3.4-4.8) gm/dL Urine 02/24/25 Range/Units 12:05 Urine Color Lt-Yellow (Lt Yel-Yel) Urine Clarity Clear (Clear/Hazy) Urine pH 6.0 (5.0-7.0) Ur Specific [place] 1.040 H (1.001-1.035) Urine Protein Negative (Neg - Trace) Urine Glucose (UA) 1+ A (Negative) Assessment and Plan Additional Assessment & Plan Additional Plan: # Melena # Posthemorrhagic anemia Plan Agree with a blood transfusion Consent obtained for fiberoptic esophagogastroduodenoscopy with possible biopsy possible therapeutic intervention under intravenous moderate sedation and we will proceed with the procedure as patient is n.p.o. IV Protonix Serial CBC Will follow Other medical problems include # Essential hypertension # Hyperlipidemia # Hypothyroidism # BPH related issues # History of duodenal gastric ulcer in the past Thank you very much for the opportunity to participate in the care of this patient
--- NOTE | 2025-02-24 17:27 | PC.NURSE ---
Pt was taken for EGD at this time 10 min after arrival from ER
[2025-02-24 20:26] LABS: Collection Type, Urine Clean Catch; RBC,Urine 0 /hpf (0-3); Squamous Epithelial Cell,Urine 0 /hpf (0-5)
[2025-02-24 20:30] LABS: Bilirubin,Urine Negative (Negative); Blood,Urine Negative (Negative); Clarity,Urine Clear (Clear/Hazy); Color,Urine Colorless (Lt Yel-Yel); Culture Indicated,Urine Not Indicated; Glucose, Urine Negative (Negative); Ketones,Urine Negative (Negative); Leukocyte Esterase,Urine Positive (Negative); Nitrite,Urine Negative (Negative); Protein,Urine Negative (Neg - Trace); Specific Gravity,Urine 1.021 (1.001-1.035); Urobilinogen,Urine Negative mg/dL (0.0-1.0); WBC,Urine 1 /hpf (0-5)
[2025-02-24] MEDS: METOCLOPRAMIDE INJ 5 MG/ML VIAL 2 ML IVP (23:32)
[2025-02-25] VITALS (105 sets, daily range): BP systolic 78–154; BP diastolic 44–89; PULSE 65–138; RESP 12–98; TEMP 36.1–37.3; O2SAT 80–100; BMI 23.3
--- NOTE | 2025-02-25 | XR_ITS ---
Examination: Abdomen AP single view Technique: AP portable supine abdomen, single view Exam date and time: February 25, 2025 1432 hours INDICATIONS: Abdominal pain today. FINDINGS: Mild small bowel ileus Moderate stool throughout the colon No free air IMPRESSION: Mild small bowel ileus If symptoms persist, recommend three-way abdominal series follow-up
--- NOTE | 2025-02-25 03:02 | PC.NURSE ---
Pt tried to get up to have bowel movement and almost passed out on the bed, vital signs shows T 97, OK 124, O2 sats 99%, BP 96/70, RR 18. Pt had a bowel movement on the pads and shows clotted blood. TELEPHONE SURVEYOR called overhead. MD Hook ordered LR bolus and STAT CBC. During the TELEPHONE SURVEYOR pt had another large BM dark tarry stool.
[2025-02-25] MEDS: RINGERS LACTATED 1000 ML 1,000 ML 999 ML IV (03:14)
--- NOTE | 2025-02-25 03:27 | XR_ITS ---
Examination: Abdomen AP single view Technique: AP portable supine abdomen, single view Exam date and time: February 25, 2025 0339 hours INDICATIONS: Upper gastrointestinal bleeding today. FINDINGS: Moderate stool throughout the colon No obstruction. No free air. Prominent osteopenia IMPRESSION: Nonobstructive bowel gas pattern
[2025-02-25 03:36] LABS: Basophils % (Auto) 0 % (0-2.5); Eosinophils % (Auto) 0 % (0-10); Immature Granulocytes % (Auto) 6 % (0-0); Immature Granulocytes Auto 0.97 Thou/mm3 (0.00-0.00); Lymphocytes # (Auto) 3.3 Thou/mm3 (1.0-4.8); Lymphocytes % (Auto) 20 % (10-50); Mean Corpuscular HGB Conc 35.1 g/dl (31.0-37.0); Mean Corpuscular Hemoglobin 30.9 pg (25.0-35.0); Mean Corpuscular Volume 88 fL (80-100); Monocytes # (Auto) 1.1 Thou/mm3 (0.0-0.8); Monocytes % (Auto) 7 % (0-12); Neutrophils % (Auto) 67 % (37-80); Nucleated Red Blood Cell # 0.49 Thou/mm3 (0.00-0.00); Nucleated Red Blood Cell % 3 /100 WBC (0); Platelet Count 137 Thou/mm3 (140-440); RDW Standard Deviation 48.7 fL (35.1-43.9); Red Blood Count 1.91 Miln/mm3 (4.50-5.90); White Blood Count 16.5 Thou/mm3 (3.8-10.6)
--- NOTE | 2025-02-25 03:41 | PD.RESEVENT ---
Documentation for date of: 02/25/25 Event Note Event Note: Rapid Response Time: 3:00AM Reason for Call: Hypotension, dizzy Patient presentation: Lethargic, laying bed, eyes closed. Responded to verbal stimuli by opening eyes. AOx3. Assessment: RR called due to large BM with melena. After BM, patient was feeling lightheaded and dizzy as if about to pass out. BP 97/83, MAP 88. He is s/p EGD with no evidence of varicies or major bleeding from ulcer. Hb 8.9 after second unit prbc yesterday afternoon. Will repeat HH. Ordered 1L bolus NS. He has almost completed octreotide drip. Continue IV pantoprazole 80mg BID per GI recs. Patient case was discussed with the attending, Dr. Chavez. Kandy Layton, PGY-1
[2025-02-25 03:42] LABS: INR 1.1 (0.9-1.3); Prothrombin Time 11.5 Seconds (9.0-12.2)
[2025-02-25 03:57] LABS: Alanine Aminotransferase 16 U/L (10-49); Albumin, Serum 2.2 gm/dL (3.4-4.8); Albumin/Globulin Ratio 2.2 (1.2-2.2); Anion Gap 14 (7-16); Aspartate Amino Transferase 11 U/L (0-34); BUN/Creatinine Ratio 57 Ratio (12-20); Bilirubin,Total 0.2 mg/dL (0.3-1.2); Blood Urea Nitrogen 68 mg/dL (9-23); Calcium 7.9 mg/dL (8.3-10.6); Calcium (Corrected) 9.3 mg/dL (8.5-10.1); Carbon Dioxide 18.3 mMol/L (20.0-31.0); Cardiac Risk Estimate 5.5 RATIO (4.0-6.7); Chloride 114 mMol/L (98-107); Cholesterol 82 mg/dL (132-200); Creatinine (Component) 1.2 mg/dL (0.6-1.3); Estimated Creatinine Clearance 56.2 mL/min (>60); Glucose 390 mg/dL (74-106); HDL Cholesterol 15 mg/dL (40-60); LDL Cholesterol,Calculated -7 mg/dL (0-130); Magnesium 1.4 mg/dL (1.6-2.6); Osmolality,Calculated 326 (275-295); Phosphorous 4.6 mg/dL (2.4-5.1); Sodium 146 mMol/L (136-145); Total Protein 3.2 gm/dL (5.7-8.2); Triglycerides 371 mg/dL (30-150); eGFR > 60 See Note
[2025-02-25 03:58] LABS: Alkaline Phosphatase 35 U/L (46-116)
--- NOTE | 2025-02-25 03:59 | PC.NURSE ---
QUENCHING MACHINE OPERATOR called - getting up for a BM, had a BM while sitting in bed (dark bloody stool) and felt dizzy and faint, RN and SANDWICH BOARD CARRIER at bedside helped pt lay down to bed. H&H lab drawn, 1L NS bolus ordered
[2025-02-25 04:15] LABS: Hemoglobin 5.9 g/dL (13.5-16.0)
[2025-02-25 04:16] LABS: Hematocrit 16.8 % (41.0-53.0)
[2025-02-25] MEDS: Magnesium Sulfate 2 GM Ivpb 2 GM/50 ML BAG IV (05:15)
[2025-02-25] MEDS: METOCLOPRAMIDE INJ 5 MG/ML VIAL 2 ML IVP ×4 (05:18→23:03)
[2025-02-25] MEDS: INSULIN LISPRO (AdmeLOG) 1 UNIT/0.01 ML UNIT SC ×4 (05:37→21:19)
[2025-02-25] MEDS: OCTREOTIDE ACET INJ 1,000 MCG in SODIUM CHLORIDE 0.9% 100 ML 5.1 MCG IV (05:56)
--- NOTE | 2025-02-25 06:29 | PC.NURSE ---
Pt transferred to room 270, ongoing blood transfusion, 2 more unit to follow. Pt at bedside. Report give to DESTINI Shepherd.
--- NOTE | 2025-02-25 07:23 | ESPR_ITS ---
<Statement entered by Sofi Ronquillo MD - 02/25/25 17:58> Patient was seen and examined at bedside, agree on the assessment and plan on this note. - Patient's plan and care discussed with my attending, Dr. Jermaine Ronquillo MD Internal Medicine PGY-2 Documentation for date of: 02/25/25 Subjective Subjective Interval history: Patient was seen and examined at bedside this AM. This morning patient Hb 5.9. Patient tolerating diet, adequate urine output and mentation is somnolent Patient says that he feels tired and weak. MAP 58 4 units PRBC, 1 unit FFP, 1 unit platelets ordered for transfusion 1 L LR IVF bolus stat Trendelenburg position EGD completed on 02/24/2025 showed a chronic nonbleeding ulcer at the pyloric junction. No signs of active bleeding. Biopsies were taken. ICU, Dr. Bright was consulted to upgrade patient for rapid transfusion protocol. Personal Injury Specialist, Dr. Alanis closely following the case. Appreciate recommendation Exam Vital Signs Temp Pulse Resp BP Pulse Ox O2 Del Method O2 Flow Rate 97.3 F 124 H 16 131/85 H 100 Room Air 3 02/25/25 05:58 02/25/25 05:58 02/25/25 05:58 02/25/25 05:58 02/25/25 05:58 02/24/25 20:00 02/24/25 17:40 Narrative Exam Constitutional Alert, oriented x 3 and comfortable. Elderly male, periorbital edema, mucous membrane pale and dry HEENT Vision grossly intact. Patent nares. Trachea midline Respiratory Chest normal on inspection and clear auscultation bilaterally Cardiovascular S1 and S2 audible, RRR. No murmurs carotid bruit. No gross JVD. Abdominal Soft, distended and generalized tenderness to palpation in all quadrants, no signs of guarding or rebound. Para-umbilical hernia on the right Genitourinary No bladder tenderness, no flank pain. Normal to palpation Musculoskeletal Extremities tone within normal limits. 2+ pitting edema up to knees bilaterally Neurological CN II - XII grossly intact. Extremity motor and sensation grossly intact. Skin Warm, dry and intact. Multiple purpura and ecchymosis on shins and upper extremities bilaterally Psychiatric Patient has good affect, is cooperative Objective Labs 02/26/25 00:55 02/25/25 20:18 Labs: Laboratory Results - last 24 hr 02/24/25 02/24/25 02/24/25 03:12 04:16 06:41 WBC RBC Hgb Hct MCV MCH MCHC RDW Std Deviation Plt Count Neut % (Auto) Lymph % (Auto) [place] % (Auto) Eos % (Auto) Baso % (Auto) Neut # (Auto) Lymph # (Auto) [place] # (Auto) Eos # (Auto) Baso # (Auto) Immature Gran # (Auto) Absolute Nucleated RBC Immature Gran % Nucleated RBC % Smear Path Review Cancelled ESR < 1 Retic Count (auto) 4.9 H Cancelled Absolute Retic 91.0 H Cancelled Immature Retic Fraction 33.6 H Cancelled Retic Hgb Content CHr 31.3 Cancelled PT INR Sodium 144 Potassium 4.9 D Chloride 112 H Carbon Dioxide 21.0 Anion Gap 11 BUN 73 H Creatinine 1.0 Estim Creat Clear Calc 67.5 eGFR > 60 BUN/Creatinine Ratio 73 H Glucose [address] Glu mg/dL Cancelled Hemoglobin A1c Cancelled Calculated Osmolality 317 H Calcium 8.7 Corrected Calcium Phosphorus Magnesium Total Bilirubin AST ALT Alkaline Phosphatase Lactate Dehydrogenase 161 C-Reactive Prot, Quant < 0.5 Total Protein Albumin Globulin Albumin/Globulin Ratio Triglycerides Cholesterol LDL Cholesterol, Calc HDL Cholesterol Cholesterol/HDL Ratio TSH 1.29 Free T4 1.19 Ur Collection Type Urine Color Urine Clarity Urine pH Ur Specific [place] Urine Protein Urine Glucose (UA) Urine Ketones Urine Blood Urine Nitrite Urine Bilirubin Urine Urobilinogen (Auto) Ur Leukocyte Esterase Urine RBC Urine WBC Ur Squamous Epith Cells Urine Bacteria Ur Culture Indicated? HIV 1&2 Antibody Rapid Non-Reactive Blood Type B Positive Antibody Screen NEGATIVE Crossmatch See Detail Blood Bank Wristband ID Yes 02/24/25 02/24/25 02/24/25 12:05 15:43 20:13 WBC RBC Hgb 8.6 L D Hct 24.7 L MCV MCH MCHC RDW Std Deviation Plt Count Neut % (Auto) Lymph % (Auto) [place] % (Auto) Eos % (Auto) Baso % (Auto) Neut # (Auto) Lymph # (Auto) [place] # (Auto) Eos # (Auto) Baso # (Auto) Immature Gran # (Auto) Absolute Nucleated RBC Immature Gran % Nucleated RBC % Smear Path Review ESR Retic Count (auto) Absolute Retic Immature Retic Fraction Retic Hgb Content CHr PT INR Sodium 147 H Potassium 5.2 H Chloride 114 H Carbon Dioxide 20.9 Anion Gap 12 BUN 78 H Creatinine 1.1 Estim Creat Clear Calc 61.3 eGFR > 60 BUN/Creatinine Ratio 71 H Glucose [address] Glu mg/dL Hemoglobin A1c Calculated Osmolality 323 H Calcium 8.7 Corrected Calcium 9.7 Phosphorus Magnesium Total Bilirubin 0.3 AST < 8 ALT 19 Alkaline Phosphatase 37 L Lactate Dehydrogenase C-Reactive Prot, Quant Total Protein 4.1 L Albumin 2.7 L Globulin 1.4 L Albumin/Globulin Ratio 1.9 Triglycerides Cholesterol LDL Cholesterol, Calc HDL Cholesterol Cholesterol/HDL Ratio TSH Free T4 Ur Collection Type Clean Catch Clean Catch Urine Color Lt-Yellow Colorless A Urine Clarity Clear Clear Urine pH 6.0 6.0 Ur Specific [place] 1.040 H 1.021 Urine Protein Negative Negative Urine Glucose (UA) 1+ A Negative Urine Ketones Trace Negative Urine Blood Negative Negative Urine Nitrite Negative Negative Urine Bilirubin Negative Negative Urine Urobilinogen (Auto) Negative Negative Ur Leukocyte Esterase Negative Positive Urine RBC 2 0 Urine WBC 1 1 Ur Squamous Epith Cells 0 0 Urine Bacteria None None Ur Culture Indicated? Not Indicated HIV 1&2 Antibody Rapid Blood Type Antibody Screen Crossmatch Blood Bank Wristband ID 02/25/25 03:16 WBC 16.5 H RBC 1.91 L* Hgb 5.9 L* D Hct 16.8 L* MCV 88 MCH 30.9 MCHC 35.1 RDW Std Deviation 48.7 H Plt Count 137 L D Neut % (Auto) 67 Lymph % (Auto) 20 [place] % (Auto) 7 Eos % (Auto) 0 Baso % (Auto) 0 Neut # (Auto) 11.0 H Lymph # (Auto) 3.3 [place] # (Auto) 1.1 H Eos # (Auto) 0.0 Baso # (Auto) 0.0 Immature Gran # (Auto) 0.97 H Absolute Nucleated RBC 0.49 H Immature Gran % 6 H Nucleated RBC % 3 H Smear Path Review ESR Retic Count (auto) Absolute Retic Immature Retic Fraction Retic Hgb Content CHr PT 11.5 INR 1.1 Sodium 146 H Potassium 5.0 Chloride 114 H Carbon Dioxide 18.3 L Anion Gap 14 BUN 68 H Creatinine 1.2 Estim Creat Clear Calc 56.2 L eGFR > 60 BUN/Creatinine Ratio 57 H Glucose [address] Glu mg/dL Hemoglobin A1c Calculated Osmolality 326 H Calcium 7.9 L Corrected Calcium 9.3 Phosphorus 4.6 Magnesium 1.4 L Total Bilirubin 0.2 L AST 11 ALT 16 Alkaline Phosphatase 35 L Lactate Dehydrogenase C-Reactive Prot, Quant Total Protein 3.2 L Albumin 2.2 L D Globulin 1.0 L Albumin/Globulin Ratio 2.2 Triglycerides 371 H Cholesterol 82 L LDL Cholesterol, Calc -7 L HDL Cholesterol 15 L Cholesterol/HDL Ratio 5.5 TSH Free T4 Ur Collection Type Urine Color Urine Clarity Urine pH Ur Specific [place] Urine Protein Urine Glucose (UA) Urine Ketones Urine Blood Urine Nitrite Urine Bilirubin Urine Urobilinogen (Auto) Ur Leukocyte Esterase Urine RBC Urine WBC Ur Squamous Epith Cells Urine Bacteria Ur Culture Indicated? HIV 1&2 Antibody Rapid Blood Type Antibody Screen Crossmatch Blood Bank Wristband ID Quality Measures Quality Measures none Assessment & Plan Assessment Current Active Medications: Generic Name Dose Route Start Last Admin Trade Name Freq PRN Reason Stop Dose Admin Acetaminophen 325 mg 02/24/25 05:30 Acetaminophen 325 Mg Tablet PO 03/26/25 05:29 Q6H PRN Pain (1-3) & Fever >100.4 Dextrose 25 ml 02/24/25 05:38 Dextrose 50%-Water Inj 50 Ml Syringe IV 03/26/25 05:37 Q15MIN PRN BG 50-70 responsive npo pt Dextrose 50 ml 02/24/25 05:38 Dextrose 50%-Water Inj 50 Ml Syringe IV 03/26/25 05:37 Q15MIN PRN BG <50 OR BG <70 & pt unresponsive Glucagon 1 mg 02/24/25 05:38 Glucagon Inj 1 Mg Vial IM Q15MIN PRN BG <70, and no IV access Ceftriaxone Sodium/Dextrose 1 gm in 50 mls @ 100 mls/hr 02/24/25 09:00 02/24/25 12:50 Rocephin/D5w 1gm Iv Premix IV 03/03/25 08:59 Infused QDAY EL Infusion Octreotide Acetate 1,000 mcg/ 102 mls @ 5.1 mls/hr 02/25/25 05:50 02/25/25 05:56 Sodium Chloride IV 03/01/25 09:49 50 mcg/hr .Q20H EL 5.1 mls/hr Administration Protocol 50 MCG/HR Insulin Human Lispro 0 unit 02/25/25 06:00 02/25/25 05:37 Insulin Lispro (Admelog) 1 Unit/0.01 Ml Unit SC 03/27/25 05:59 4 unit Q6HR EL Administration Protocol Metoclopramide HCl 5 mg 02/24/25 18:00 02/25/25 05:18 Metoclopramide Inj 5 Mg/Ml Vial 2 Ml IVP 03/26/25 17:59 5 mg Q6HR EL Administration Protocol Morphine Sulfate 1 mg 02/24/25 12:24 Morphine Sulf Inj 10 Mg/Ml Vial IVP 03/01/25 12:23 Q4HR PRN BREAKTHROUGH PAIN Ondansetron HCl 4 mg 02/24/25 05:30 02/24/25 09:55 Ondansetron Inj 2 Mg/Ml Inj 2 Ml IV 03/26/25 05:29 4 mg Q6H PRN Administration NAUSEA OR VOMITING Protocol Pantoprazole Sodium 80 mg 02/24/25 21:00 02/24/25 20:23 Pantoprazole Inj 40 Mg Vial IVP 03/26/25 20:59 80 mg Q12HR EL Administration Plan Mr. Ceja is a 59-year-old male with past medical history of primary hypertension, hyperlipidemia, [id number] diabetes mellitus type 2, hypothyroidism, BPH and gastric/duodenal ulcers who presented to [facility] emergency department on 02/24/2025 with a chief complaint of generalized weakness and chest pain. Patient admitted for further workup. Acute blood loss anemia secondary to GI bleed for investigation Symptomatic anemia History of duodenal ulcer, PUD s/p endoclips 2022 Presented with SOB, chest pain. Endorsed dark stools for the past week On exam as pale and dry mucous membranes, generalized abdominal pain. DDx: Duodenal ulcer, internal hemorrhoids, esophageal varices, angiodysplasia. Chest/abdomen/pelvis CT showed gastritis pattern, significant perinephric stranding. Mild thickening of the urinary bladder wall, cystitis pattern. EGD completed on 02/24/2025 showed a chronic nonbleeding ulcer at the pyloric junction. No signs of active bleeding. Biopsies were taken. This morning patient Hb 5.9. Patient says that he feels tired and weak. MAP 58 4 units PRBC, 1 unit FFP, 1 unit platelets ordered for transfusion 1 L LR IVF bolus stat Trendelenburg position ICU, Dr. Bright was consulted to upgrade patient for rapid transfusion protocol. Personal Injury Specialist, Dr. Alanis closely following the case. Appreciate recommendation Plan: ? Keep n.p.o. ? Protonix 80 Mg IV twice daily ? Continue octreotide infusion ? 4 units PRBC, 1 unit FFP and 1 unit platelets ordered ? 1 L lactated Ringer's IV fluid bolus ? Patient upgraded to the ICU for massive transfusion protocol ? Spa Concierge, Dr. Bright consulted and closely following the case. Appreciate recommendations ? Gastroenterology, Dr. Alanis closely following the case. Appreciate recommendations Periorbital edema Bilateral lower extremity edema DDx: Nephrotic syndrome, CHF, cirrhosis, ANJEL Significant periorbital and lower extremity edema. BNP 22, liver and kidney function within normal limits. 24-hour urine protein ordered Plan: - 24 hour urine protein pending Bilateral upper extremity ecchymosis Patient has bilateral upper extremity ecchymosis, attributes it to work in [place]. Patient did get bone marrow biopsy, was not enough specimen to rule out MDS. INR 1, HIV 1 and 2 antibody nonreactive Plan: ? Pending hepatitis panel Hyperkalemia?resolved K 5.6 --> 4.9 Primary Hypertension Hyperlipidemia Currently BP 115/65 Plan: ? Antihypertensives on hold due to GI bleeding evidence of blood pressure [id number] diabetes mellitus type 2 -Sliding scale insulin -Fingerstick monitoring -hypoglycemia protocol Hypothyroidism Per medication review patient on levothyroxine 50 mcg daily, patient refused taking medication TSH 1.29, free T4 1.19 Plan: - To Resume home medication BPH Home medication finasteride and tamsulosin Plan: ? In-N-Out catheter as needed ? Resume Flomax once GI bleed resolved Health maintenance: Disposition: Massive transfusion protocol. Upgraded to ICU Diet: N.p.o. Lines: pIVs GI Prophylaxis: Pantoprazole 80 Mg IV twice daily Thrombo Prophylaxis: SCDs Code status: FULL CODE Plan of care discussed with Attending Dr. Dean and PGY 2 Dr. Shima Azevedo MD PGY 1 Disclaimer: This note was dictated by speech recognition. Minor errors in [employer] may be present due to voice recognition software. Attending Provider Attestation/Addendum I have examined the patient, reviewed labs and imaging findings, discussed the case with the resident(s), and reviewed entered orders. I agree with the plan of care as outlined in this note. Dr. Jermaine MD
[2025-02-25] MEDS: PANTOPRAZOLE INJ 40 MG VIAL 80 MG IVP ×2 (07:47→20:01)
[2025-02-25] MEDS: cefTRIAXone/D5w 1gm IV premix 1 GM/50 ML BAG IV (07:54)
[2025-02-25] MEDS: SODIUM CHLORIDE 0.9% 1000 ML 1,000 ML 999 ML IV (08:04)
--- NOTE | 2025-02-25 08:44 | PD.RESCONSUL ---
HPI Data of Consult Requesting Physician: Willy Bright MD Admitting Provider: Mango Chavez MD Attending Provider: Willy Bright MD Primary Care Provider: Jorge Corado PA-C Consult Narrative Reason for consult: hypotension History of present illness: Mr. Ceja is a 59-year-old male with past medical history of hypertension, hyperlipidemia, diabetes mellitus, hypothyroidism, BPH and gastric/duodenal ulcers who presented to [facility] emergency department on 02/24/2025 with a chief complaint of generalized weakness and chest pain. Patient complains of chest pain retrosternal, severe, 10 on , reported that his pain started earlier today this afternoon. Patient also complains of generalized weakness, generalized body pain and significant abdominal pain. Patient reports that he has been feeling generally weak for the last couple of weeks, also complains of associated shortness of breath, nausea vomiting and sweating. Patient also endorses dark stools for the last couple of days, is on iron tablets. Patient does have a history of duodenal ulcer, was found to have large duodenal ulcer covering the superior part of duodenum in 2022. Patient does have bruises on bilateral upper extremities and right lower extremity, patient attributes the bruises to his work in [employer]. Patient otherwise denies any dizziness, falls and passing out. Patient was admitted for acute GIB. Patient had a EGD on 02/24 which showed the chronic ulcer at the pyloris extending into the duodenum without bleeding. There was gastritis noted. Biopsy was taken for concern for underlying malignancy. Overnight, patient had a rapid for pre-syncope and melena. Repeat hemoglobin was 5.9. He was transfused blood. 02/25/2025: Patient upgraded to ICU for worsening hypotension. He was given a total of 4 units of PRBC, 1 FFP and 1 platelet, and IVF. He continued to have bloody bowl movements. Dr. Alanis was notified and patient underwent repeat emergent EGD today at noon for dennise bleeding. The ulcer was identified again from the pre-pyloric region extending into the pyloric channel. The area was cauterized and clipped. GI specialist recommended the patient to be transferred for IR embolization of the gastric-duodenal artery, otherwise likely surgery for antrectomy/rounx-en-y for likely malignancy. General surgeon Dr. Galo was also consulted and recommended transfer to tertiary center. Repeat hemoglobin improved to 8, and then dropped to 5. 2 more units of blood were ordered. Patient remains on low dose levophed for hypovolemic shock. Per family, patient was on eliquis for unknown reason and last dose was on Wednesday, 02/23. cc:: cc: Willy Bright MD Review of Systems Review of Systems Systems Reviewed: All systems reviewed, normal except as documented Exam Vital Signs Temp Pulse Resp BP Pulse Ox O2 Del Method O2 Flow Rate 98.2 F 106 H 18 134/85 H 100 Room Air 2 02/25/25 08:41 02/25/25 08:41 02/25/25 08:41 02/25/25 08:41 02/25/25 08:41 02/25/25 08:00 02/25/25 07:59 Narrative Exam Constitutional: NAD. HEENT: NCAT. Vision grossly intact. L eye fixed myopic from previous eye surgery Respiratory: CTAB Cardiac: Tachycardia, sinus. Abdomen: Soft, non-distended, mild tenderness epigastric region MSK: B/L LE edema 2+ Skin: Warm, dry, intact. No obvious lesions. Neuro: Motor and sensation grossly intact. Results Labs 02/25/25 15:51 02/25/25 15:51 Labs: Short CBC 02/24/25 02/25/25 Range/Units 15:43 03:16 WBC 16.5 H (3.8-10.6) Thou/mm3 Hgb 8.6 L D 5.9 L* D (13.5-16.0) g/dL Hct 24.7 L 16.8 L* (41.0-53.0) % Plt Count 137 L D (140-440) Thou/mm3 BMP 02/24/25 02/25/25 15:43 03:16 Sodium 147 H 146 H Potassium 5.2 H 5.0 Chloride 114 H 114 H Carbon Dioxide 20.9 18.3 L BUN 78 H 68 H Creatinine 1.1 1.2 Glucose 251 H 390 H D Calcium 8.7 7.9 L Liver Function 02/24/25 02/25/25 Range/Units 15:43 03:16 Total Bilirubin 0.3 0.2 L (0.3-1.2) mg/dL AST < 8 11 (0-34) U/L ALT 19 16 (10-49) U/L Alkaline Phosphatase 37 L 35 L (46-116) U/L Albumin 2.7 L 2.2 L D (3.4-4.8) gm/dL Urine 02/24/25 02/24/25 Range/Units 12:05 20:13 Urine Color Lt-Yellow Colorless A (Lt Yel-Yel) Urine Clarity Clear Clear (Clear/Hazy) Urine pH 6.0 6.0 (5.0-7.0) Ur Specific Norco 1.040 H 1.021 (1.001-1.035) Urine Protein Negative Negative (Neg - Trace) Urine Glucose (UA) 1+ A Negative (Negative) Quality Measures Quality Measures none Medications Home Medications and Allergies Home Medications ?Medication ?Instructions ?Recorded ?Confirmed ?Type atorvastatin 40 mg tablet 40 mg PO QPM 12/29/18 02/24/25 History hydrochlorothiazide 12.5 mg tablet 12.5 mg PO QDAY 11/25/19 02/24/25 History metformin 1,000 mg tablet 1,000 mg PO BID 11/25/19 02/24/25 History duloxetine 30 mg capsule,delayed 30 mg PO DAILY 05/13/23 02/24/25 History release latanoprost 0.005 % eye drops 1 drp ophthalmic (eye) HS 05/13/23 02/24/25 History benazepril 40 mg tablet 40 mg PO DAILY 11/16/24 02/24/25 History omeprazole 20 mg capsule,delayed 20 mg PO BID 11/16/24 02/24/25 History release insulin glargine 100 unit/mL (3 35 unit subcut QPM 02/24/25 02/24/25 History mL) subcutaneous pen (Basaglar KwikPen U-100 Insulin) Allergies Allergy/AdvReac Type Severity Reaction Status Date / Time No Known Allergies Allergy Verified 02/24/25 01:48 Visit Medications Acetaminophen (Acetaminophen 325 Mg Tablet) 325 mg PO Q6H PRN PRN Reason: Pain (1-3) & Fever >100.4 Stop: 03/26/25 05:29 Dextrose (Dextrose 50%-Water Inj 50 Ml Syringe) 25 ml IV Q15MIN PRN PRN Reason: BG 50-70 responsive npo pt Stop: 03/26/25 05:37 Dextrose (Dextrose 50%-Water Inj 50 Ml Syringe) 50 ml IV Q15MIN PRN PRN Reason: BG <50 OR BG <70 & pt unresponsive Stop: 03/26/25 05:37 Glucagon (Glucagon Inj 1 Mg Vial) 1 mg IM Q15MIN PRN PRN Reason: BG <70, and no IV access Glucagon (Glucagon Inj 1 Mg Vial) 1 mg IM Q15MIN PRN PRN Reason: BG <70, and no IV access Octreotide Acetate 1,000 mcg/ (Sodium Chloride) 102 mls @ 5.1 mls/hr IV .Q20H EL; Protocol Stop: 03/01/25 09:49 Last Admin: 02/25/25 05:56 Dose: 50 mcg/hr, 5.1 mls/hr Insulin Glargine (Insulin Glargine (Lantus) 5 Unit/0.05 Ml (Per 5 Units)) 20 unit SC QDAY EL Stop: 03/27/25 08:59 Insulin Human Lispro (Insulin Lispro (Admelog) 1 Unit/0.01 Ml Unit) 0 unit SC Q4HR EL; Protocol Stop: 03/27/25 09:59 Metoclopramide HCl (Metoclopramide Inj 5 Mg/Ml Vial 2 Ml) 5 mg IVP Q6HR EL; Protocol Stop: 03/26/25 17:59 Last Admin: 02/25/25 05:18 Dose: 5 mg Morphine Sulfate (Morphine Sulf Inj 10 Mg/Ml Vial) 1 mg IVP Q4HR PRN PRN Reason: BREAKTHROUGH PAIN Stop: 03/01/25 12:23 Ondansetron HCl (Ondansetron Inj 2 Mg/Ml Inj 2 Ml) 4 mg IV Q6H PRN; Protocol PRN Reason: NAUSEA OR VOMITING Stop: 03/26/25 05:29 Last Admin: 02/24/25 09:55 Dose: 4 mg Pantoprazole Sodium (Pantoprazole Inj 40 Mg Vial) 80 mg IVP Q12HR EL Stop: 03/26/25 20:59 Last Admin: 02/25/25 07:47 Dose: 80 mg Discontinued Medications Acetaminophen (Acetaminophen 325 Mg Tablet) 650 mg PO X1 ONE Stop: 02/25/25 05:10 Dextrose (Dextrose 50%-Water Inj 50 Ml Syringe) 25 ml IV Q15MIN PRN PRN Reason: BG 50-70 responsive npo pt Stop: 03/27/25 07:57 Dextrose (Dextrose 50%-Water Inj 50 Ml Syringe) 50 ml IV Q15MIN PRN PRN Reason: BG <50 OR BG <70 & pt unresponsive Stop: 03/27/25 07:57 Diphenhydramine HCl (Diphenhydramine Inj 50 Mg/Ml Vial) 25 mg IV [id number] PRN PRN Reason: MODERATE SEDATION Stop: 02/24/25 19:26 Fentanyl Citrate (Fentanyl Cit Inj 50 Mcg/Ml Amp 2ml) 50 mcg IV Q2M PRN PRN Reason: MODERATE SEDATION Stop: 02/24/25 19:26 Sodium Chloride (Ns) 1,000 mls @ 999 mls/hr IV .[facility] ONE Stop: 02/24/25 03:51 Last Infusion: 02/24/25 04:10 Dose: Infused Sodium Chloride (Ns) 1,000 mls @ 999 mls/hr IV .Q1[facility] ONE Stop: 02/24/25 04:04 Last Admin: 02/24/25 05:40 Dose: Not Given Lactated Ringer's (Lactated Ringers) 1,000 mls @ 75 mls/hr IV .[id number] [facility] Stop: 02/24/25 18:49 Last Infusion: 02/24/25 10:18 Dose: 0 mls/hr Ceftriaxone Sodium/Dextrose (Rocephin/D5w 1gm Iv Premix) 1 gm in 50 mls @ 100 mls/hr IV QDAY [facility] Stop: 03/03/25 08:59 Last Admin: 02/25/25 07:54 Dose: 100 mls/hr Octreotide Acetate 1,000 mcg/ (Sodium Chloride) 102 mls @ 5.1 mls/hr IV .Q20H [facility]; Protocol Stop: 02/25/25 05:14 Last Admin: 02/24/25 09:50 Dose: 50 mcg/hr, 5.1 mls/hr Lactated Ringer's (Lactated Ringers) 1,000 mls @ 74 mls/hr IV .[id number] [facility] Stop: 02/24/25 23:24 Last Admin: 02/24/25 10:18 Dose: 74 mls/hr Lactated Ringer's (Lactated Ringers) 1,000 mls @ 999 mls/hr IV .Q[address] Stop: 02/25/25 04:09 Last Admin: 02/25/25 03:14 Dose: 999 mls/hr Magnesium Sulfate (Magnesium Sulfate Ivpb) 2 gm in 50 mls @ 25 mls/hr IV X1 ONE Stop: 02/25/25 06:17 Last Admin: 02/25/25 05:15 Dose: 25 mls/hr Sodium Chloride (Ns) 1,000 mls @ 999 mls/hr IV .Q1H1M ONE Stop: 02/25/25 08:41 Last Admin: 02/25/25 08:42 Dose: Not Given Sodium Chloride (Ns) 1,000 mls @ 999 mls/hr IV .Q1H1M ONE Stop: 02/25/25 08:44 Last Admin: 02/25/25 08:04 Dose: 999 mls/hr Insulin Human Lispro (Insulin Lispro (Admelog) 1 Unit/0.01 Ml Unit) 0 unit SC AC EL; Protocol Stop: 03/26/25 07:29 Last Admin: 02/24/25 17:26 Dose: Not Given Insulin Human Lispro (Insulin Lispro (Admelog) 1 Unit/0.01 Ml Unit) 0 unit SC Q6HR EL; Protocol Stop: 03/27/25 05:59 Last Admin: 02/25/25 05:37 Dose: 4 unit Levothyroxine Sodium (Levothyroxine Sodium 25 Mcg Tablet) 50 mcg PO ACBR EL Stop: 03/26/25 05:59 Midazolam HCl (Midazolam Inj 1 Mg/Ml Vial 2 Ml) 2 mg IV Q2M PRN PRN Reason: Moderate Sedation Stop: 02/24/25 19:26 Morphine Sulfate (Morphine Sulf Inj 10 Mg/Ml Vial) 2 mg IVP X1 ONE Stop: 02/24/25 04:09 Last Admin: 02/24/25 04:31 Dose: 2 mg Octreotide Acetate (Octreotide Acet Inj 50 Mcg/Ml Vial) 50 mcg IV X1 ONE Stop: 02/24/25 09:10 Last Admin: 02/24/25 09:49 Dose: 50 mcg Ondansetron HCl (Ondansetron Inj 2 Mg/Ml Inj 2 Ml) 4 mg IV X1 ONE; Protocol Stop: 02/24/25 04:09 Last Admin: 02/24/25 04:31 Dose: 4 mg Pantoprazole Sodium (Pantoprazole Inj 40 Mg Vial) 40 mg IVP Q12HR EL Stop: 03/26/25 08:59 Pantoprazole Sodium (Pantoprazole Inj 40 Mg Vial) 80 mg IVP X1 ONE Stop: 02/24/25 07:44 Last Admin: 02/24/25 08:03 Dose: 80 mg Pantoprazole Sodium (Pantoprazole Inj 40 Mg Vial) 40 mg IVP Q12HR [facility] Stop: 03/26/25 20:59 Assessment & Plan Plan Patient is a 59 year old male admitted to the ICU for hypovolemic shock due to actively bleeding duodenal ulcer. 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 The ulcer was identified again from the pre-pyloric region extending into the pyloric channel. The area was cauterized and clipped. GI specialist recommended the patient to be transferred for IR embolization of the gastric-duodenal artery, otherwise likely surgery for antrectomy/rounx-en-y for likely malignancy. General surgeon Dr. Galo was also consulted and recommended transfer to tertiary center. See operative note. - GI Dr. Alanis following - General surgeon Dr. Galo following - Protonix 80 BID - Metoclopramide 5mg Q6H - Goal Hb > 8 ENDO #DM2 - Glargine 20 + ISS Q4H - Blood sugar checks Q4H HEME #Acute blood loss anemia due to GIB Patient recieved 4 units of PRBC, 1 unit FFP, 1 platelet - CBC Q4H - Goal Hb > 8 #Leukocytosis Reactive, see above ID No acute probelms Health Maintenance Disposition: Upgrade to ICU for hypovolemic shock Diet and fluids: NPO DVT prophylaxis: SCD GI prophylaxis: protonix Lines: PIV CODE STATUS: FULL I have reviewed and discussed the patient's care with my attending, Dr. Deangelo Duque MD PGY-3
[2025-02-25] MEDS: INSULIN GLARGINE (Lantus) 5 UNIT/0.05 ML (PER 5 UNITS) 20 UNIT SC (08:46)
--- NOTE | 2025-02-25 08:59 | PC.NURSE ---
pupils noted to be unequal on assessment MD notified
[2025-02-25] MEDS: Norepinephrine/D5W 8mg/250ml 8 MG/250 ML BAG 5.953 MG IV (11:45)
--- NOTE | 2025-02-25 12:52 | PC.CC ---
Addendum entered by Francisca Mosquera RN 02/25/25 19:50: [address] Watson, gave update on transfer so far and informed [place] might be contacting him for peer to peer. Addendum entered by Francisca Mosquera RN 02/25/25 19:40: 1939 received call from [facility], spoke to Michela. She stated transfer is declined due to capacity. Addendum entered by Francisca Mosquera RN 02/25/25 19:37: 1920 called [facility] , spoke to Mony and initiated the transfer as stat. Gave clinicals. 1918 clinicals faxed to [facility]. Addendum entered by Francisca Mosquera RN 02/25/25 19:19: 1913 called [facility], spoke to Michela and initiated the transfer. Addendum entered by Francisca Mosquera RN 02/25/25 19:12: 1912 clinicals faxed to [facility]. Addendum entered by Francisca Mosquera RN 02/25/25 19:11: 1900 Due to working on multiple transfer. Chirpme system and fax being down, unable to work until now. Addendum entered by Francisca Mosquera RN 02/25/25 16:41: 1423 received call from Feng at [facility]. She stated only way she can help is present the case to cardiac catheterization technician but she will need insurance auth before that. I informed her to keep the pt on the list, transfer center will get the auth tomorrow but in the mean time [facility] continue to look for other places for transfer. Addendum entered by Francisca Mosquera RN 02/25/25 16:38: 1339 received call from Kelley at [facility], she stated the transfer is declined due to capacity. They have too many ICU patients waiting in their ER. Addendum entered by Francisca Mosquera RN 02/25/25 16:36: 1324 received call from [facility], spoke to Feng and initiated the transfer. She stated IR is not available on the weekend, but she will call me back to see how she can help with the pt. Original Note: 1309 called [facility], spoke to Kelley and initiated the transfe request. She stated IR is not an extension course counselor service at their facility but she will reach out to see to whom she can present the case. 1308 called [facility] to initiate the transfer, left VM. 1302 called [facility], spoke to Lakisha and initiated the transfer. Transfer is declined due to no IR services available over the weekend. [address] Duque, pt needs to be transferred for duodenal bleeding ulcer needs IR services for embolization of gastro duodenal ulcer.
[2025-02-25] MEDS: FUROSEMIDE INJ 10 MG/ML VIAL 2 ML 20 MG IV (14:22)
[2025-02-25] MEDS: MORPHINE SULF INJ 10 MG/ML VIAL IVP (14:26)
[2025-02-25 15:47] LABS: Anion Gap 12 (7-16); BUN/Creatinine Ratio 68 Ratio (12-20); Blood Urea Nitrogen 68 mg/dL (9-23); Calcium 7.3 mg/dL (8.3-10.6); Chloride 117 mMol/L (98-107); Glucose 311 mg/dL (74-106); Osmolality,Calculated 325 (275-295); Potassium 4.7 mMol/L (3.4-5.1); Sodium 148 mMol/L (136-145); eGFR > 60 See Note
[2025-02-25 16:08] LABS: Basophils % (Auto) 0 % (0-2.5); Eosinophils % (Auto) 0 % (0-10); Immature Granulocytes % (Auto) 7 % (0-0); Immature Granulocytes Auto 1.07 Thou/mm3 (0.00-0.00); Lymphocytes % (Auto) 13 % (10-50); Mean Corpuscular HGB Conc 34.4 g/dl (31.0-37.0); Mean Corpuscular Hemoglobin 31.2 pg (25.0-35.0); Mean Corpuscular Volume 91 fL (80-100); Monocytes # (Auto) 1.3 Thou/mm3 (0.0-0.8); Monocytes % (Auto) 8 % (0-12); Neutrophils % (Auto) 73 % (37-80); Nucleated Red Blood Cell # 0.82 Thou/mm3 (0.00-0.00); Nucleated Red Blood Cell % 5 /100 WBC (0); Platelet Count 148 Thou/mm3 (140-440); Red Blood Count 1.73 Miln/mm3 (4.50-5.90); White Blood Count 16.4 Thou/mm3 (3.8-10.6)
--- NOTE | 2025-02-25 16:17 | PC.NURSE ---
[facility] 09[facility] 1615.
[2025-02-25 16:18] LABS: Anion Gap 11 (7-16); BUN/Creatinine Ratio 48 Ratio (12-20); Blood Urea Nitrogen 58 mg/dL (9-23); Chloride 119 mMol/L (98-107); Creatinine (Component) 1.2 mg/dL (0.6-1.3); Estimated Creatinine Clearance 54.1 mL/min (>60); Glucose 319 mg/dL (74-106); Osmolality,Calculated 322 (275-295); Potassium 5.1 mMol/L (3.4-5.1); Sodium 148 mMol/L (136-145); eGFR > 60 See Note
[2025-02-25 16:24] LABS: INR 1.1 (0.9-1.3); Prothrombin Time 12.4 Seconds (9.0-12.2)
[2025-02-25 16:38] LABS: Hematocrit 15.7 % (41.0-53.0); Hemoglobin 5.4 g/dL (13.5-16.0)
[2025-02-25 16:42] LABS: Basophils % (Auto) 0 % (0-2.5); Eosinophils % (Auto) 0 % (0-10); Hematocrit 22.2 % (41.0-53.0); Immature Granulocytes % (Auto) 7 % (0-0); Immature Granulocytes Auto 0.91 Thou/mm3 (0.00-0.00); Lymphocytes # (Auto) 1.2 Thou/mm3 (1.0-4.8); Lymphocytes % (Auto) 9 % (10-50); Mean Corpuscular HGB Conc 34.2 g/dl (31.0-37.0); Mean Corpuscular Hemoglobin 30.6 pg (25.0-35.0); Mean Corpuscular Volume 90 fL (80-100); Monocytes # (Auto) 0.9 Thou/mm3 (0.0-0.8); Monocytes % (Auto) 7 % (0-12); Neutrophils # (Auto) 10.2 Thou/mm3 (1.8-7.7); Neutrophils % (Auto) 77 % (37-80); Nucleated Red Blood Cell # 0.43 Thou/mm3 (0.00-0.00); Nucleated Red Blood Cell % 3 /100 WBC (0); Platelet Count 141 Thou/mm3 (140-440); RDW Standard Deviation 46.2 fL (35.1-43.9); Red Blood Count 2.48 Miln/mm3 (4.50-5.90); White Blood Count 13.2 Thou/mm3 (3.8-10.6)
[2025-02-25 17:17] LABS: Hemoglobin 7.6 g/dL (13.5-16.0)
[2025-02-25 17:38] LABS: Hematocrit 15.7 % (41.0-53.0); Hemoglobin 5.4 g/dL (13.5-16.0)
--- NOTE | 2025-02-25 17:40 | ESDS_ITS ---
Planned Discharge Date 02/25/25 DS: Providers Provider Date of admission: 02/24/25 05:28 Primary care physician: Jorge Corado PA-C Admitting Provider: Mango Chavez MD Attending Provider on Admission: Willy Bright MD Consults: 02/24/25 05:32 Consult to Gastroenterology Routine Comment: GI Bleed Workup Consulting Provider: Joshua Alanis Attending Provider on DC: Vicki Duque MD Discharging Provider: Vicki Duque MD DS: Diagnosis Problem List Completed Was Problem List Reviewed/Reconciled?: Yes Hospital Course Hospital Course Hospital course: Patient is a 59-year-old male with past medical history of HTN, HLD, DM, hypothyroidism, BPH and chronic gastric/duodenal ulcers who presented to [facility] emergency department on 02/24/2025 with a chief complaint of generalized weakness, retro-sternal and epigastric abdominal pain associated with melena for the last 5 days. Patient has known chronic large duodenal ulcer in the superior duodenum dating back 2022 and then was lost to follow-up. He denies syncope, dizziness. Family stated patient has been taking Eliquis but they do not know why, and his last dose was a day prior to admission. Patient was found to have hemoglobin of 6.1 He was admitted for acute upper GI bleed and transfused blood. Hemoglobn improved to 8.[address] Alanis was consulted. EGD 02/24 showed the chronic ulcer at the pyloris extending into the duodenum, without bleeding. Gastritis was noted. A biopsy was taken. Given the non-healing nature of the ulcer, there was concern for underlying malignancy so a biopsy was taken. Overnight, a rapid was called for pre-syncope and melena. The hemoglobin dropped to 5.9. Patient was transferred to the ICU for worsening hypotension and blood loss. He was given a total of 2 more units of PRBC, 1 FFP and 1 platelet, and IV fluids. He continued to have bloody bowl movements. GI specialist Dr. Alanis was notified and patient underwent repeat emergent EGD 02/24 for dennise bleeding. The ulcer was identified again from the pre-pyloric region extending into the pyloric channel. The area was cauterized and clipped. GI specialist recommended the patient to be transferred for IR embolization of the gastric-duodenal artery, otherwise surgery for antrectomy/rounx-en-y for likely malignancy. General surgeon Dr. Galo was also consulted and recommended transfer to tertiary center. A CTA abdomen was deferred as the source of bleeding is the duodenal ulcer. Patient remains on low dose levophed for hypovolemic shock. At the time of this summary, the patient recieved a total of 4 RBC, 1 FFP, and 1 platelet. He is actively bleeding and 2 more units of blood are ordered. I have reviewed and discussed the patient's care with my attending, Dr. Deangelo Duque MD PGY-3 #Hypovolemic shock due to acute GI bleed #Acute GI bleed due to duodenal ulcer #Acute gastritis #Acute on chronic microcytic anemia due to acute blood loss anemia #History of DM2 #History of HTN #History of HLD #History of hypotension Status at Discharge Overall status at discharge: patient is not back to baseline Time Spent with Patient Time attestation: Total time spent providing and/or coordinating discharge services: Time spent: Greater than 30 minutes Exam Vital Signs Temp Pulse Resp BP Pulse Ox O2 Del Method O2 Flow Rate 98.2 F 129 H 22 H 100/51 L 100 Oxy Mask 5 02/25/25 17:37 02/25/25 17:37 02/25/25 17:37 02/25/25 17:37 02/25/25 17:37 02/25/25 16:00 02/25/25 17:20 Narrative Exam Constitutional: NAD. HEENT: NCAT. Vision grossly intact. L eye fixed myopic from previous eye surgery Respiratory: CTAB Cardiac: Tachycardia, sinus. Abdomen: Soft, non-distended, mild tenderness epigastric region MSK: B/L LE edema 2+ Skin: Warm, dry, intact. No obvious lesions. Neuro: Motor and sensation grossly intact. Discharge Plan Prescriptions/Referrals Prescriptions/Med Rec: No Action atorvastatin 40 mg Tablet 40 mg PO QPM metformin 1,000 mg Tablet 1,000 mg PO BID hydrochlorothiazide 12.5 mg Tablet 12.5 mg PO QDAY cyclobenzaprine 10 mg tablet 10 mg PO TID PRN (Reason: muscle spasm) Qty: 14 0RF latanoprost 0.005 % drops 1 drp OPHTHALMIC (EYE) HS Patient Comments: place 1 drop into both eyes every evening duloxetine 30 mg capsule,delayed release(DR/EC) 30 mg PO DAILY Patient Comments: take 1 capsule by mouth once daily sucralfate 100 mg/mL Suspension 1 g PO QID Qty: 200 0RF tamsulosin 0.4 mg Capsule 0.4 mg PO QDAY Qty: 30 0RF lisinopril 2.5 mg Tablet 10 mg PO QDAY Qty: 120 0RF finasteride 5 mg Tablet 5 mg PO QDAY Qty: 30 0RF omeprazole 20 mg capsule,delayed release(DR/EC) 20 mg PO BID Patient Comments: take 1 capsule by mouth 30 MINUTES PRIOR TO BREAKFAST/OTHER MEDS twice a day benazepril 40 mg tablet 40 mg PO DAILY Patient Comments: take 1 tablet by mouth once daily famotidine 40 mg tablet 40 mg PO .bedtime Qty: 30 0RF magnesium oxide 400 mg magnesium capsule 400 mg PO BID Qty: 60 0RF insulin glargine [Basaglar KwikPen U-100 Insulin] 100 unit/mL (3 mL) insulin pen 35 unit SUBCUT QPM Referrals: Jorge Corado PA-C [Primary Care Provider] - Patient/Caregiver Discharge Instructions Print Language: Ukrainian Quality Discharge Quality Measures VTE prophylaxis
[2025-02-25 17:56] LABS: INR 1.1 (0.9-1.3); Prothrombin Time 12.4 Seconds (9.0-12.2)
--- NOTE | 2025-02-25 18:31 | EVENTNT_ITS ---
Documentation for date of: 02/25/25 Event Note Event Note: Around 7:30 AM rapid response was called for hypotension. Patient's MAP was 58 and in Trendelenburg position upon arrival. 1 unit PRBC has been transfused and currently a second unit was ongoing. Hb 5.9 at the time. Patient will be upgraded to ICU due to hemodynamic instability and necessity of rapid transfusion protocol. Plan of care discussed with Attending Dr. Dean and PGY 2 Dr[address] Shima Azevedo MD PGY 1 Disclaimer: This note was dictated by speech recognition. Minor errors in development educator may be present due to voice recognition software.
--- NOTE | 2025-02-25 18:43 | PC.NURSE ---
Patient in EGD procedure 02/25/25 from 1144 until 1201.
[2025-02-25 20:36] LABS: Basophils % (Auto) 0 % (0-2.5); Eosinophils % (Auto) 0 % (0-10); Hematocrit 23.4 % (41.0-53.0); Immature Granulocytes % (Auto) 5 % (0-0); Immature Granulocytes Auto 1.07 Thou/mm3 (0.00-0.00); Lymphocytes # (Auto) 1.7 Thou/mm3 (1.0-4.8); Lymphocytes % (Auto) 8 % (10-50); Mean Corpuscular HGB Conc 35.5 g/dl (31.0-37.0); Mean Corpuscular Hemoglobin 30.7 pg (25.0-35.0); Mean Corpuscular Volume 87 fL (80-100); Monocytes # (Auto) 1.6 Thou/mm3 (0.0-0.8); Monocytes % (Auto) 8 % (0-12); Neutrophils # (Auto) 15.8 Thou/mm3 (1.8-7.7); Neutrophils % (Auto) 78 % (37-80); Nucleated Red Blood Cell # 1.66 Thou/mm3 (0.00-0.00); Nucleated Red Blood Cell % 8 /100 WBC (0); Platelet Count 96 Thou/mm3 (140-440); RDW Standard Deviation 44.1 fL (35.1-43.9)
--- NOTE | 2025-02-25 20:41 | ESOP_ITS ---
RE: ISABEL STONE : 1965 DATE OF OPERATION: 02/25/2025 PROCEDURE PERFORMED: Fiber optic esophagogastroduodenoscopy with control of hemorrhage using aqueous epinephrine 1:10,000, bipolar Gold Heater probe, and placement of three Endoclip. INDICATIONS: A 59-year-old male with active upper GI bleed. PREOPERATIVE DIAGNOSIS: See indication. POSTOPERATIVE DIAGNOSIS: See impression. DIRECTOR AND PROFESSOR: My assistants are the endoscopy team. See nursing notes for details. ANESTHESIA: Under MAC. ADDITIONAL MEDICATIONS USED: Epinephrine 1:10,000 0.3 mg. INSTRUMENT USED: 1. Olympus 2T20 therapeutic upper endoscope. 2. Medicine injector. 3. Bipolar gold heater probe 10-Kiswahili. 4. Endoclips: One endoclip was 11 mm and two endoclips were 18 mm. DETAILS OF PROCEDURE: The patient was in the intensive care unit in room 250. MAC was initiated by the anesthesiologist, see the notes. A 2T20 therapeutic endoscope was introduced in the cervical esophagus and advanced. The esophagus at the GE junction appeared to be normal. There was blood seen in the body of the stomach. There is an ulcer at the level of the pyloric channel going into the duodenal bulb. There were three bleeding spots. Epinephrine was injected around them and bipolar gold heater probe was used and the sites were coagulated and then three endoclips were applied, one 11 mm and two 18 mm and the bleeding sites were clipped and there was no more bleeding. There was fresh blood seen in the beginning from the distal small bowel. Examination after the third portion of the duodenum showed no fresh blood except the blood trickling from the stomach. Additional small bowel lesion cannot be completely ruled out. The patient tolerated the procedure very well. There were no immediate complications of the procedure. IMPRESSION: Large ulcer at the level of the pyloric channel going into the duodenal bulb. Status post epinephrine injection, bipolar Gold Heater probe, and placement of endoclips. Small bowel bleed cannot be ruled out. Recommend angiogram for embolization of the bleeding site if the patient continues to bleed. If he needs surgery, it will be a major surgical option of antrectomy, vagotomy and Duc-en-Y as simple suturing is not going to work. This is a chronic ulcer for the last 18 months. Nonhealing. Biopsies are pending. DT: 12:35:38 TT: 18:02:00 Ref: [id number] - TID: [id number]
[2025-02-25 20:44] LABS: Hemoglobin 8.3 g/dL (13.5-16.0)
[2025-02-25 20:58] LABS: INR 1.2 (0.9-1.3); Prothrombin Time 12.6 Seconds (9.0-12.2)
[2025-02-25 21:02] LABS: Anion Gap 12 (7-16); BUN/Creatinine Ratio 42 Ratio (12-20); Blood Urea Nitrogen 59 mg/dL (9-23); Calcium 7.2 mg/dL (8.3-10.6); Chloride 117 mMol/L (98-107); Creatinine (Component) 1.4 mg/dL (0.6-1.3); Estimated Creatinine Clearance 46.4 mL/min (>60); Glucose 308 mg/dL (74-106); Osmolality,Calculated 315 (275-295); Potassium 5.2 mMol/L (3.4-5.1); Sodium 144 mMol/L (136-145); eGFR 57 See Note
[2025-02-25 21:37] LABS: White Blood Count 18.7 Thou/mm3 (3.8-10.6)
[2025-02-25 21:38] LABS: Path Review Blood Smear Sent to Pathologist
[2025-02-25 22:33] LABS: Hematocrit 27.2 % (41.0-53.0); Hemoglobin 9.5 g/dL (13.5-16.0)
--- NOTE | 2025-02-25 22:46 | PC.NURSE ---
Called [facility], was told that GI declined case but IR is still reviewing. They also requested imaging verifying that they did not receive any, they use the program [place] so unable to push images. They will verify with MD and if still necessary, may need hanging flags decorator. Nicholas foster and made aware.
[2025-02-25 23:17] LABS: Hepatitis A Antibody IgM Non Reactive (Non React); Hepatitis B Core Antibody IgM Non Reactive (Non React); Hepatitis B Surface Antigen Non Reactive (Non React); Hepatitis C Antibody Non Reactive (Non React); Vitamin B12 331 pg/mL (211-911)
[2025-02-25 23:24] LABS: Reflex Lactate? Y
[2025-02-26] VITALS: BP 105/76; PULSE 122; PULSE 123; RESP 23; TEMP 36.7; O2SAT 100
[2025-02-26 00:33] LABS: Lactate (Lactic Acid) 2.5 mMol/L (0.4-2.0)
[2025-02-26 00:47] LABS: Protein Total, Random Urine 9 mg/dL (1-14); Protein Total, Urine 9 mg/dL (1-14)
[2025-02-26 00:53] LABS: B-Type Natriuretic Peptide 32 pg/mL (0-100)
[2025-02-26 00:54] LABS: Protein Total, 24 hr Urine 65 mg/24hr (<149); Protein Total, Urine Volume 725 mL/24hr (600-1800)
[2025-02-26 01:00] VITALS: BP 95/72; PULSE 123; RESP 18; O2SAT 100
[2025-02-26 01:14] LABS: Basophils % (Auto) 0 % (0-2.5); Eosinophils % (Auto) 0 % (0-10); Hematocrit 25.3 % (41.0-53.0); Immature Granulocytes % (Auto) 6 % (0-0); Immature Granulocytes Auto 1.09 Thou/mm3 (0.00-0.00); Lymphocytes # (Auto) 1.9 Thou/mm3 (1.0-4.8); Lymphocytes % (Auto) 10 % (10-50); Mean Corpuscular HGB Conc 35.6 g/dl (31.0-37.0); Mean Corpuscular Hemoglobin 30.3 pg (25.0-35.0); Mean Corpuscular Volume 85 fL (80-100); Monocytes # (Auto) 1.4 Thou/mm3 (0.0-0.8); Monocytes % (Auto) 8 % (0-12); Neutrophils # (Auto) 13.8 Thou/mm3 (1.8-7.7); Neutrophils % (Auto) 76 % (37-80); Nucleated Red Blood Cell # 1.58 Thou/mm3 (0.00-0.00); Nucleated Red Blood Cell % 9 /100 WBC (0); Platelet Count 128 Thou/mm3 (140-440); RDW Standard Deviation 43.9 fL (35.1-43.9); Red Blood Count 2.97 Miln/mm3 (4.50-5.90)
[2025-02-26 01:18] LABS: White Blood Count 16.8 Thou/mm3 (3.8-10.6)
--- NOTE | 2025-02-26 01:24 | PC.NURSE ---
Mirian from [facility] called. pt accepted to [facility] by MD Pratt [id number] report number [phone]
--- NOTE | 2025-02-26 01:50 | PC.NURSE ---
[facility] contacted and accepted. estimated tile picker time [phone]. [facility] notified. Instructed to have them call [facility] at beggining of flight peggy STEPHENSON, RN made aware.
[2025-02-26] MEDS: INSULIN LISPRO (AdmeLOG) 1 UNIT/0.01 ML UNIT SC (01:55)
[2025-02-26 02:00] VITALS: BP 105/71; PULSE 118; RESP 16; O2SAT 99
--- NOTE | 2025-02-26 02:04 | PC.NURSE ---
called report to Saúl GEORGES at [facility], tel# [phone]. 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
[2025-02-26 03:00] VITALS: BP 120/77; PULSE 121; RESP 16; O2SAT 100
[2025-02-26 03:27] LABS: Reflex Lactate? Y
[2025-02-26 04:00] VITALS: BP 100/75; PULSE 117; PULSE 118; RESP 19; TEMP 36.7; O2SAT 100
[2025-02-26] MEDS: MORPHINE SULF INJ 10 MG/ML VIAL IVP (04:29)
--- NOTE | 2025-02-26 04:32 | PC.NURSE ---
flight crew at bedside, report given to Marcie GEORGES
--- NOTE | 2025-02-26 04:50 | PC.NURSE ---
Patient taken by flight crew at this time.
[2025-02-26 08:34] LABS: Misc Send Out* See Sep Rpt
== END 2025-02-26 04:55 | disposition other institution (70) | DRG 241 ==
LOC: SERX 05:12 → SERHOLD 05:59 → S3SX 16:55 → S2NX 02-25 06:25 → S2SX 02-25 08:20
PROVIDERS: Emergency Medicine; Specialist; Student in an Organized Health Care Education/Training Program; Admitting Provider Student in an Organized Health Care Education/Training Program; Emergency Provider Emergency Medicine; PCP Family Medicine; Visit Provider Internal Medicine
PROC: 0W3P8ZZ Control Bleeding in Gastrointestinal Tract, Via Natural or Artificial Opening Endoscopic (ICD-10-PCS; CPT 43239; principal; 2025-02-24 18:15)
PROC: (CPT 43239; principal; 2025-02-25 11:00)
DX: K26.4 Chronic or unspecified duodenal ulcer with hemorrhage (principal); R57.1 Hypovolemic shock; K29.00 Acute gastritis without bleeding; D62 Acute posthemorrhagic anemia; N40.0 Benign prostatic hyperplasia without lower urinary tract symptoms; I10 Essential (primary) hypertension; E78.5 Hyperlipidemia, unspecified; E11.9 Type 2 diabetes mellitus without complications; E03.9 Hypothyroidism, unspecified; E87.5 Hyperkalemia; Z79.4 Long term (current) use of insulin; Z79.84 Long term (current) use of oral hypoglycemic drugs; Z79.890 Hormone replacement therapy
CPT/HCPCS: 36415; 36430; 71045; 71260; 74018; 74177; 80048; 80053; 80061; 80074; 81001; 82270; 82607; 82728; 83036; 83540; 83550; 83605; 83615; 83690; 83735; 83880; 84100; 84156; 84439; 84443; 84484; 85014; 85018; 85025; 85046; 85610; 85652; 85730; 86140; 86703; 86850; 86900; 86901; 86923; 86927; 86965; 87081; 93005; 93225; 96361; 96365; 96372; 96374; 96375; 96376; 99285; A4649; J0696; J1100; J1200; J1815; J1885; J1938; J2250; J2270; J2354; J2371; J2405; J2470; J2704; J2765; J3010; J3475; J3490; J7030; J7050; J7120; P9016; P9035; P9060; Q9967

== ENCOUNTER 2025-03-01 09:40 | Inpatient (IN) | payer MEDICAID, SELFPAY ==
--- NOTE | 2025-03-01 23:14 | ESHP_ITS ---
<Statement entered by Tuan Sosa MD - 03/02/25 12:42> I have discussed and was present for the essential components of the history, physical examination, diagnosis, and treatment plan with the resident. I agree with the patient's care as documented by the resident and amended herein by me. Tuan Sosa MD FACP. Documentation for date of: 03/01/25 HPI History of Present Illness History of present illness: 59-year-old male with past medical history of hypertension, hyperlipidemia, diabetes, hypothyroidism, BPH, diverticulosis, osteoporosis with previous wedge fracture of the T12 vertebra and, history of upper GI bleed secondary to duodenal ulcer first noted in 2022 initially presented to [facility] on 02/24 with chief complaints of melena and found to have a hemoglobin of 6.1. Patient was admitted for GI bleeding treatment and management. Initially he received only 2 units of PRBC and underwent an EGD on 02/24 which revealed a chronic pyloric ulcer extending into the duodenum along with a gastritis, but no active bleeding. Biopsies were taken at that time due to concern of possible malignancy. During the night of 02/24 patient had a large melanotic bowel movement along with episode of presyncope. And subsequently repeat EGD was done which revealed bleeding at the site of the ulcer, which was clipped. He was transferred to ICU, received 6 units of PRBC, 1 FFP and 1 platelets. However due to unstable hemodinamics patient required low-dose of Levophed. GI was closely following the case, decision was made to transfer patient to [facility] for possible IR evaluation. At [facility] CTA was obtained, since showed no evidence of active bleeding, IR consult for embolization was deemed unwarranted. Patient was stable at that time, H&H was stable, they advance the diet to full liquid at 02/28/2025, and patient was stable to transfer back. PMH COMMENT: PMH: Positive for hypertension, hyperlipidemia, diabetes mellitus, hypothyroidism, BPH and gastric/duodenal ulcers PSHx: Inguinal hernia, cataract, EGD Allergies: No known drug and food allergies Social history: -Smoking: Denies -Alcohol Use: Denies -Illicit Drug Use: Denies -Martial Status: Patient lives with girlfriend, has kids in [place] Family History: Denies any pertinent family history Review of Systems Review of Systems Systems Reviewed: All systems reviewed, normal except as documented Exam Narrative Exam GENERAL: no acute distress, AAO x3, well nourished. HEENT: Head AT/ NC. Mucous membranes moist. NECK: Supple, no lymphadenopathy, no carotid bruits. CARDIOVASCULAR: RRR. Normal S1/S2, systolic murmur on the right upper sternal border. RESPIRATORY: CTAB. No wheezing, rhonchi, crackles. GASTROINTESTINAL: Abdomen soft, non tender no palpable masses. Bowel sounds present in all 4 quadrants. NEUROLOGICAL: CN II-XII grossly intact. No focal deficits. Sensation intact, symmetric. PSYCHIATRIC: Awake and alert, not agitated, normal mood and affect. Quality Measures Quality Measures VTE prophylaxis Medications Home Medications and Allergies Home Medications ?Medication ?Instructions ?Recorded ?Confirmed ?Type atorvastatin 40 mg tablet 40 mg PO QPM 12/29/18 History hydrochlorothiazide 12.5 mg tablet 12.5 mg PO QDAY 02/24/25 History metformin 1,000 mg tablet 1,000 mg PO BID 11/25/19 History duloxetine 30 mg capsule,delayed 30 mg PO DAILY 02/24/25 History release latanoprost 0.005 % eye drops 1 drp ophthalmic (eye) H S 05/13/23 02/24/25 History benazepril 40 mg tablet 40 mg PO DAILY 11/16/2402/08 History omeprazole 20 mg capsule,delayed 20 mg PO BID 11/16/24 02/24/25 History release insulin glargine 100 unit/mL (3 35 unit subcut QPM 02/24/25 History mL) subcutaneous pen (Basaglar KwikPen U-100 Insulin) Allergies Allergy/AdvReac Type Severity Reaction Status Date / Time No Known Allergies Allergy Verified 02/24/25 01:48 Visit Medications Acetaminophen (Acetaminophen 325 Mg Tablet) 650 mg PO Q6H PRN PRN Reason: Fever >101.5 Stop: 03/31/25 22:32 Dextrose (Dextrose 50%-Water Inj 50 Ml Syringe) 25 ml IV Q15MIN PRN PRN Reason: BG 50-70 responsive npo pt Stop: 03/31/25 23:07 Dextrose (Dextrose 50%-Water Inj 50 Ml Syringe) 50 ml IV Q15MIN PRN PRN Reason: BG <50 OR BG <70 & pt unresponsive Stop: 03/31/25 23:07 Glucagon (Glucagon Inj 1 Mg Vial) 1 mg IM Q15MIN PRN PRN Reason: BG <70, and no IV access Insulin Human Lispro (Insulin Lispro (Admelog) 1 Unit/0.01 Ml Unit) 0 unit SC Q6HR EL; Protocol Stop: 04/01/25 00:00 Ondansetron HCl (Ondansetron Inj 2 Mg/Ml Inj 2 Ml) 4 mg IVP Q6H PRN; Protocol PRN Reason: NAUSEA OR VOMITING Stop: 03/31/25 22:32 Pantoprazole Sodium (Pantoprazole Inj 40 Mg Vial) 40 mg IVP Q12HR EL Stop: 04/01/25 08:59 Assessment & Plan Plan 67-year-old male with history of hypertension, hyperlipidemia, diabetes, hypothyroidism, BPH was admitted for GI bleeding treatment and management. Patient was transferred back from [facility], where he was transferred for possible IR embolization, however procedure was not done there, patient remained stable and was transferred back to the [facility]. #Upper GI bleed secondary to the gastric ulcer Patient had EGD done twice. First did not reveal any active bleeding, however patient had a episode of large melanotic bowel movement along with the presyncope and had second EGD done requiring Hemoclip. CBC continued to drop despite receiving multiple blood transfusion. And patient was transferred for IR guided embolization. Patient currently stable Tolerated full liquid diet well - Will continue PPI 40 twice daily - Currently is n.p.o., advance diet as tolerated. [facility] - Follow-up with the biopsy - Follow-up outpatient with GI #Acute kidney injury resolved Most likely prerenal in the setting of GI loss ?Treat underlying condition ? Renally dose medication ? Avoid nephrotoxins #History of DM - On insulin sliding scale - Resume home regimen #Hypertension #Hyperlipidemia Resume home medications Disposition:Medsurge DVT prophylaxis: SCDs GI prophylaxis: PPI BID Diet: NPO, advance as tolerates Lines: PIV CODE STATUS:Full code Patient care was discussed with attending physician Dr. Sheila Guzman MD PGY-2 I have carefully reviewed this document. Due to imperfections in the voice software, there could be grammatical errors including phonetic/typographic errors. This in no way compromises the medical care the patient is receiving
[2025-03-01 23:30] VITALS: PULSE 82; RESP 16; RESP 98
[2025-03-02] VITALS (9 sets, daily range): BP systolic 126–154; BP diastolic 65–81; PULSE 77–97; RESP 15–99; TEMP 36.2–37.4; O2SAT 98–99
[2025-03-02 00:09] LABS: Hematocrit 23.6 % (41.0-53.0)
[2025-03-02 00:18] LABS: Hemoglobin 8.3 g/dL (13.5-16.0)
[2025-03-02] MEDS: ACETAMINOPHEN 325 MG TABLET 650 MG PO ×4 (00:40→20:46)
--- NOTE | 2025-03-02 00:43 | PC.NURSE ---
Pt unable to recall home medications. Med Rec not done at this time. Will endorse to day shift RN to follow up with patient family in AM.
[2025-03-02 06:05] LABS: Basophils % (Auto) 0 % (0-2.5); Eosinophils # (Auto) 0.1 Thou/mm3 (0.0-0.5); Eosinophils % (Auto) 2 % (0-10); Immature Granulocytes % (Auto) 4 % (0-0); Immature Granulocytes Auto 0.34 Thou/mm3 (0.00-0.00); Lymphocytes % (Auto) 12 % (10-50); Mean Corpuscular HGB Conc 33.8 g/dl (31.0-37.0); Mean Corpuscular Hemoglobin 29.8 pg (25.0-35.0); Mean Corpuscular Volume 88 fL (80-100); Monocytes # (Auto) 0.7 Thou/mm3 (0.0-0.8); Monocytes % (Auto) 8 % (0-12); Neutrophils # (Auto) 6.5 Thou/mm3 (1.8-7.7); Neutrophils % (Auto) 75 % (37-80); Nucleated Red Blood Cell # 0.18 Thou/mm3 (0.00-0.00); Nucleated Red Blood Cell % 2 /100 WBC (0); Platelet Count 208 Thou/mm3 (140-440); RDW Standard Deviation 46.5 fL (35.1-43.9); Red Blood Count 2.72 Miln/mm3 (4.50-5.90); White Blood Count 8.7 Thou/mm3 (3.8-10.6)
[2025-03-02 06:10] LABS: Hemoglobin 8.1 g/dL (13.5-16.0)
[2025-03-02 06:30] LABS: Alanine Aminotransferase 174 U/L (10-49); Albumin, Serum 2.7 gm/dL (3.4-4.8); Albumin/Globulin Ratio 1.7 (1.2-2.2); Alkaline Phosphatase 88 U/L (46-116); Anion Gap 11 (7-16); Aspartate Amino Transferase 31 U/L (0-34); BUN/Creatinine Ratio 7 Ratio (12-20); Bilirubin,Total 0.3 mg/dL (0.3-1.2); Blood Urea Nitrogen 5 mg/dL (9-23); Calcium 8.1 mg/dL (8.3-10.6); Calcium (Corrected) 9.1 mg/dL (8.5-10.1); Carbon Dioxide 23.3 mMol/L (20.0-31.0); Chloride 111 mMol/L (98-107); Creatinine (Component) 0.7 mg/dL (0.6-1.3); Estimated Creatinine Clearance 96.4 mL/min (>60); Globulin 1.6 gm/dL (2.3-3.5); Glucose 143 mg/dL (74-106); Magnesium 1.5 mg/dL (1.6-2.6); Osmolality,Calculated 287 (275-295); Potassium 3.7 mMol/L (3.4-5.1); Sodium 145 mMol/L (136-145); Total Protein 4.3 gm/dL (5.7-8.2); eGFR > 60 See Note
[2025-03-02] MEDS: PANTOPRAZOLE INJ 40 MG VIAL IVP (08:14)
[2025-03-02 09:18] LABS: Phosphorous 3.7 mg/dL (2.4-5.1)
--- NOTE | 2025-03-02 09:19 | PC.SS ---
Follow up note: Pt is transfer back from [facility]. Follow up with blood levels.
[2025-03-02] MEDS: amLODIPine BESYLATE 5 MG TABLET PO (09:43)
[2025-03-02] MEDS: TAMSULOSIN HCL 0.4 MG CAPSULE PO (09:44)
[2025-03-02] MEDS: FINASTERIDE 5 MG TABLET PO (09:44)
[2025-03-02] MEDS: Magnesium Sulfate 2 GM Ivpb 2 GM/50 ML BAG IV (10:12)
[2025-03-02] MEDS: INSULIN LISPRO (AdmeLOG) 1 UNIT/0.01 ML UNIT SC (11:49)
--- NOTE | 2025-03-02 12:51 | PC.SS ---
SS met with patient regarding his d/c plan. Pt is alert/oriented. Pt was a transfer back. Pt confirmed demographic and contact information is correct on facesheet. Pt resides with . Pt ambulates independently without assistance or DME. Pt is ok with all ADLs. Patient?s pharmacy of choice is [facility] in [place]. Pt named his , Carie Eduardo medical decision maker if he is unable. Patient?s choice is to return home upon d/c. Pt states he is diabetic, has glucometer, and test strips. Pt states his next appointment with PCP is March 14 2025. D/C plan: Return home Next of Kin: Carie Eduardo, , phone# [phone] PCP: Dr. Christiaon Lazar Address: Correct on facesheet
--- NOTE | 2025-03-02 16:04 | ESPR_ITS ---
Documentation for date of: 03/02/25 Subjective Subjective Interval history: Patient was seen and examined at bedside. Patient denied any new symptoms. Vitally patient was stable at this time we are waiting for the GI recommendations for possible discharge. Exam Vital Signs Temp Pulse Resp BP Pulse Ox O2 Del Method 98.8 F 77 18 154/81 H 99 Room Air 03/02/25 12:00 03/02/25 12:00 03/02/25 12:00 03/02/25 12:00 03/02/25 12:00 03/02/25 12:00 Narrative Exam GEN: AOx3, lying in bed comfortably, Portuguese speaker HEENT: NC/AC, oral mucosa moist, neck supple CVS: RRR, S1-S2 present, no murmurs appreciated RESP: CTAB GI: soft,non distended, non tender, NBS MSK: able to move all 4 limbs, no lower extremity edema SKIN: warm and dry FINISHING TUNNEL OPERATOR: CN II-XII and Sensation grossly intact. Objective Labs 03/02/25 05:04 03/02/25 05:04 Labs: Laboratory Results - last 24 hr 03/01/25 03/02/25 23:45 05:04 WBC 8.7 D RBC 2.72 L Hgb 8.3 L 8.1 L Hct 23.6 L 24.0 L MCV 88 MCH 29.8 MCHC 33.8 RDW Std Deviation 46.5 H Plt Count 208 D Neut % (Auto) 75 Lymph % (Auto) 12 Campbell % (Auto) 8 Eos % (Auto) 2 Baso % (Auto) 0 Neut # (Auto) 6.5 Lymph # (Auto) 1.0 Campbell # (Auto) 0.7 Eos # (Auto) 0.1 Baso # (Auto) 0.0 Immature Gran # (Auto) 0.34 H Absolute Nucleated RBC 0.18 H Immature Gran % 4 H Nucleated RBC % 2 H Sodium 145 Potassium 3.7 Chloride 111 H Carbon Dioxide 23.3 Anion Gap 11 BUN 5 L Creatinine 0.7 D Estim Creat Clear Calc 96.4 eGFR > 60 BUN/Creatinine Ratio 7 L Glucose 143 H Calculated Osmolality 287 Calcium 8.1 L Corrected Calcium 9.1 Phosphorus 3.7 Magnesium 1.5 L Total Bilirubin 0.3 AST 31 ALT 174 H Alkaline Phosphatase 88 Total Protein 4.3 L Albumin 2.7 L Globulin 1.6 L Albumin/Globulin Ratio 1.7 Quality Measures Quality Measures VTE prophylaxis Assessment & Plan Assessment Current Active Medications: Generic Name Dose Route Start Last Admin Trade Name Freq PRN Reason Stop Dose Admin Acetaminophen 650 mg 03/02/25 00:01 03/02/25 14:37 Acetaminophen 325 Mg Tablet PO 03/31/25 22:32 650 mg Q6H PRN Administration Fever >101.5 or pain Amlodipine Besylate 5 mg 03/02/25 09:00 03/02/25 09:43 Amlodipine Besylate 5 Mg Tablet PO 04/01/25 08:59 5 mg DAILY EL Administration Atorvastatin Calcium 40 mg 03/02/25 21:00 Atorvastatin Calcium 20 Mg Tablet PO 04/01/25 20:59 QPM EL Dextrose 25 ml 03/01/25 23:08 Dextrose 50%-Water Inj 50 Ml Syringe IV 03/31/25 23:07 Q15MIN PRN BG 50-70 responsive npo pt Dextrose 50 ml 03/01/25 23:08 Dextrose 50%-Water Inj 50 Ml Syringe IV 03/31/25 23:07 Q15MIN PRN BG <50 OR BG <70 & pt unresponsive Finasteride 5 mg 03/02/25 09:00 03/02/25 09:44 Finasteride 5 Mg Tablet PO 04/01/25 08:59 5 mg QDAY EL Administration Glucagon 1 mg 03/01/25 23:08 Glucagon Inj 1 Mg Vial IM Q15MIN PRN BG <70, and no IV access Insulin Human Lispro 0 unit 03/02/25 00:00 03/02/25 11:49 Insulin Lispro (Admelog) 1 Unit/0.01 Ml Unit SC 04/01/25 00:00 3 unit Q6HR EL Administration Protocol Ondansetron HCl 4 mg 03/01/25 22:33 Ondansetron Inj 2 Mg/Ml Inj 2 Ml IVP 03/31/25 22:32 Q6H PRN NAUSEA OR VOMITING Protocol Pantoprazole Sodium 40 mg 03/02/25 21:00 Pantoprazole 40 Mg Tablet PO 04/01/25 20:59 Q12HR EL Tamsulosin HCl 0.4 mg 03/02/25 09:00 03/02/25 09:44 Tamsulosin Hcl 0.4 Mg Capsule PO 04/01/25 08:59 0.4 mg QDAY EL Administration Plan Summary: a 67-year-old male with history of hypertension, hyperlipidemia, diabetes, hypothyroidism, BPH was admitted for GI bleeding treatment and management. Patient was transferred back from [place], where he was transferred for possible IR embolization due to uncontrolled upper and lower GI bleed, however procedure was not done there, patient remained stable and was transferred back to the [facility]. #GI bleed secondary to the gastric ulcer # Gastric ulcer status post clipping Patient had EGD done twice. First did not reveal any active bleeding, however patient had a episode of large melanotic bowel movement along with the presyncope and had second EGD done requiring Hemoclip. CBC continued to drop despite receiving multiple blood transfusion. And patient was transferred for IR guided embolization. Patient currently stable, Tolerated full liquid diet well Plan - Will continue PPI 40 twice daily - Advance diet to carb consistent - Follow-up with the biopsy - Follow-up with the GI recommendations, possible discharge tomorrow. #Acute kidney injury resolved Most likely prerenal in the setting of GI loss and hypotension #History of DM Last A1c on 25 Feb 2025 was 7.2. Plan - On insulin sliding scale - Hold home medication ? Hypoglycemia protocol in place #Hypertension #Hyperlipidemia Resume home medications atorvastatin 40 mg p.o. daily Resume home medication amlodipine 5 mg p.o. daily #History of BPH Plan ? Resume home medication tamsulosin 0.4 mg p.o. daily ?Resume home medication finasteride 5 mg p.o. daily Disposition:Medsurge, pending GI recommendations for discharge. DVT prophylaxis: SCDs GI prophylaxis: PPI BID Diet: Clear liquid diet advance as tolerated. Lines: PIV CODE STATUS:Full code Attending Provider Attestation/Addendum I have discussed and was present for the essential components of the history, physical examination, diagnosis, and treatment plan with the resident. I agree with the patient's care as documented by the resident and amended herein by me. Maxwell Byrne DO. Although this document has been carefully reviewed, there may still be some phonetic and other typographical errors. These errors are purely grammatical due to imperfections in the software program and should not be construed in any way to compromise the substance of the patient's medical care during this visit.
--- NOTE | 2025-03-02 19:42 | PD.IMCONS ---
HPI Data of Consult Requesting Physician: Bhavesh Byrne DO Primary Care Provider: Physician No Primary/Family Consult Narrative Reason for consult: Evaluation of GI bleed and gastric ulcer History of present illness: 59 years old male well-known to me because of my previous evaluation of him for a GI bleed requiring upper endoscopy with placement of clips along with bipolar gold heater probe Patient was transferred to [facility] for possibly chemoembolization or surgical intervention CTA abdomen was negative and patient stopped bleeding hemoglobin hematocrit stayed stable and patient is transferred back without any intervention cc:: cc: Bhavesh Byrne DO Past Medical History Surgical History OTHER SURGICAL HX: Well-documented 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 history 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 Meds Home Medications and Allergies Home Medications ?Medication ?Instructions ?Recorded ?Confirmed ?Type atorvastatin 40 mg tablet 40 mg PO QPM 12/29/18 03/02/25 History hydrochlorothiazide 12.5 mg tablet 12.5 mg PO QDAY 11/25/19 03/02/25 History metformin 1,000 mg tablet 1,000 mg PO BID 11/25/19 03/02/25 History benazepril 40 mg tablet 40 mg PO DAILY 11/16/24 03/02/25 History insulin glargine 100 unit/mL (3 35 unit subcut QPM 02/24/25 03/02/25 History mL) subcutaneous pen (Basaglar KwikPen U-100 Insulin) amlodipine 5 mg tablet 5 mg PO DAILY 03/02/25 03/02/25 History omeprazole 40 mg capsule,delayed 40 mg PO DAILY 03/02/25 03/02/25 History release ondansetron 4 mg disintegrating 4 mg PO TID PRN nausea and vomiting 03/02/25 03/02/25 History tablet pantoprazole 40 mg tablet,delayed 40 mg PO DAILY 03/02/25 03/02/25 History release Allergies Allergy/AdvReac Type Severity Reaction Status Date / Time No Known Allergies Allergy Verified 02/24/25 01:48 Exam Vital Signs Temp Pulse Resp BP Pulse Ox O2 Del Method 98.1 F 85 17 126/65 99 Room Air 03/02/25 17:12 03/02/25 16:00 03/02/25 16:00 03/02/25 16:00 03/02/25 16:00 03/02/25 16:00 Routine Respiratory Exam Comments: Normal to auscultation Routine Abdominal Exam Comments: Soft nontender Results Labs 03/02/25 05:04 03/02/25 05:04 Labs: Short CBC 03/01/25 03/02/25 Range/Units 23:45 05:04 WBC 8.7 D (3.8-10.6) Thou/mm3 Hgb 8.3 L 8.1 L (13.5-16.0) g/dL Hct 23.6 L 24.0 L (41.0-53.0) % Plt Count 208 D (140-440) Thou/mm3 BMP 03/02/25 05:04 Sodium 145 Potassium 3.7 Chloride 111 H Carbon Dioxide 23.3 BUN 5 L Creatinine 0.7 D Glucose 143 H Calcium 8.1 L Liver Function 03/02/25 Range/Units 05:04 Total Bilirubin 0.3 (0.3-1.2) mg/dL AST 31 (0-34) U/L ALT 174 H (10-49) U/L Alkaline Phosphatase 88 (46-116) U/L Albumin 2.7 L (3.4-4.8) gm/dL Assessment and Plan Additional Assessment & Plan Additional Plan: # Prepyloric gastric ulcer as a source of bleeding status post endoscopic intervention with placement of endoclips bipolar gold heater probe And the hemorrhage has stopped Plan Continue Protonix Serial CBC Will follow the patient Continue Protonix Thank you very much for the opportunity to participate in care of this patient
[2025-03-02] MEDS: PANTOPRAZOLE 40 MG TABLET PO (20:10)
[2025-03-02] MEDS: ATORVASTATIN CALCIUM 20 MG TABLET 40 MG PO (20:10)
[2025-03-03] VITALS: BP 142/72; PULSE 103; RESP 18; TEMP 36.1; O2SAT 99
[2025-03-03] MEDS: INSULIN LISPRO (AdmeLOG) 1 UNIT/0.01 ML UNIT SC ×2 (00:03→07:31)
[2025-03-03 04:00] VITALS: BP 153/75; PULSE 93; RESP 18; TEMP 36.3; O2SAT 99
[2025-03-03 06:16] LABS: Basophils % (Auto) 0 % (0-2.5); Eosinophils # (Auto) 0.1 Thou/mm3 (0.0-0.5); Eosinophils % (Auto) 2 % (0-10); Hematocrit 23.1 % (41.0-53.0); Immature Granulocytes % (Auto) 2 % (0-0); Immature Granulocytes Auto 0.17 Thou/mm3 (0.00-0.00); Lymphocytes # (Auto) 0.9 Thou/mm3 (1.0-4.8); Lymphocytes % (Auto) 12 % (10-50); Mean Corpuscular HGB Conc 34.2 g/dl (31.0-37.0); Mean Corpuscular Hemoglobin 29.7 pg (25.0-35.0); Mean Corpuscular Volume 87 fL (80-100); Monocytes # (Auto) 0.6 Thou/mm3 (0.0-0.8); Monocytes % (Auto) 8 % (0-12); Neutrophils # (Auto) 5.7 Thou/mm3 (1.8-7.7); Neutrophils % (Auto) 76 % (37-80); Nucleated Red Blood Cell # 0.03 Thou/mm3 (0.00-0.00); Nucleated Red Blood Cell % 0 /100 WBC (0); Platelet Count 251 Thou/mm3 (140-440); RDW Standard Deviation 46.4 fL (35.1-43.9); Red Blood Count 2.66 Miln/mm3 (4.50-5.90); White Blood Count 7.5 Thou/mm3 (3.8-10.6)
[2025-03-03 06:21] LABS: Hemoglobin 7.9 g/dL (13.5-16.0)
[2025-03-03 06:22] LABS: Alanine Aminotransferase 126 U/L (10-49); Albumin, Serum 2.8 gm/dL (3.4-4.8); Albumin/Globulin Ratio 1.6 (1.2-2.2); Alkaline Phosphatase 85 U/L (46-116); Anion Gap 11 (7-16); Aspartate Amino Transferase 22 U/L (0-34); BUN/Creatinine Ratio 8 Ratio (12-20); Bilirubin,Total 0.3 mg/dL (0.3-1.2); Blood Urea Nitrogen < 5 mg/dL (9-23); Carbon Dioxide 22.9 mMol/L (20.0-31.0); Chloride 111 mMol/L (98-107); Creatinine (Component) 0.6 mg/dL (0.6-1.3); Estimated Creatinine Clearance 112.5 mL/min (>60); Globulin 1.7 gm/dL (2.3-3.5); Glucose 155 mg/dL (74-106); Osmolality,Calculated 288 (275-295); Potassium 3.6 mMol/L (3.4-5.1); Sodium 145 mMol/L (136-145); Total Protein 4.5 gm/dL (5.7-8.2); eGFR > 60 See Note
[2025-03-03] MEDS: ACETAMINOPHEN 325 MG TABLET 650 MG PO (07:40)
[2025-03-03 08:00] VITALS: BP 136/74; PULSE 83; RESP 16; TEMP 36.1; O2SAT 99
[2025-03-03 09:11] VITALS: PULSE 80; RESP 18; RESP 97
[2025-03-03 09:26] LABS: Magnesium 1.5 mg/dL (1.6-2.6)
[2025-03-03 09:38] VITALS: BP 136/74; PULSE 83
[2025-03-03] MEDS: FINASTERIDE 5 MG TABLET PO (09:38)
[2025-03-03] MEDS: TAMSULOSIN HCL 0.4 MG CAPSULE PO (09:38)
[2025-03-03] MEDS: PANTOPRAZOLE 40 MG TABLET PO (09:38)
[2025-03-03] MEDS: amLODIPine BESYLATE 5 MG TABLET PO (09:38)
--- NOTE | 2025-03-03 10:45 | ESPR_ITS ---
Documentation for date of: 03/03/25 Exam Vital Signs Temp Pulse Resp BP Pulse Ox O2 Del Method 97 F 83 16 136/74 H 99 Room Air 03/03/25 08:00 03/03/25 09:38 03/03/25 08:00 03/03/25 09:38 03/03/25 08:00 03/03/25 08:00 Objective Labs 03/03/25 04:55 03/03/25 04:55 Labs: Laboratory Results - last 24 hr 03/03/25 04:55 WBC 7.5 RBC 2.66 L Hgb 7.9 L Hct 23.1 L MCV 87 MCH 29.7 MCHC 34.2 RDW Std Deviation 46.4 H Plt Count 251 D Neut % (Auto) 76 Lymph % (Auto) 12 [place] % (Auto) 8 Eos % (Auto) 2 Baso % (Auto) 0 Neut # (Auto) 5.7 Lymph # (Auto) 0.9 L [place]ill # (Auto) 0.6 Eos # (Auto) 0.1 Baso # (Auto) 0.0 Immature Gran # (Auto) 0.17 H Absolute Nucleated RBC 0.03 H Immature Gran % 2 H Nucleated RBC % 0 Sodium 145 Potassium 3.6 Chloride 111 H Carbon Dioxide 22.9 Anion Gap 11 BUN < 5 L Creatinine 0.6 Estim Creat Clear Calc 112.5 eGFR > 60 BUN/Creatinine Ratio 8 L Glucose 155 H Calculated Osmolality 288 Calcium 8.0 L Corrected Calcium 9.0 Magnesium 1.5 L Total Bilirubin 0.3 AST 22 ALT 126 H Alkaline Phosphatase 85 Total Protein 4.5 L Albumin 2.8 L Globulin 1.7 L Albumin/Globulin Ratio 1.6 Assessment & Plan A&P Narrative # Prepyloric gastric ulcer as a source of bleeding status post endoscopic intervention with placement of endoclips bipolar gold heater probe And the hemorrhage has stopped Plan Continue Protonix Serial CBC Will follow the patient Continue Protonix Thank you very much for the opportunity to participate in care of this patient Time Spent With Patient Time: Total time spent is greater than 50% in coordination of care (as documented) at patient's floor/unit and/or counseling patient:
--- NOTE | 2025-03-03 11:59 | ESDS_ITS ---
Planned Discharge Date 03/03/25 DS: Providers Provider Date of admission: 03/01/25 09:40 Primary care physician: Physician No Primary/Family Admitting Provider: Bhavesh Byrne DO Attending Provider on Admission: Bhavesh Byrne DO Consults: 03/02/25 10:43 Consult to Gastroenterology Routine Comment: Consulting Provider: Joshua Alanis Attending Provider on DC: Bhavesh Byrne DO Discharging Provider: Dwayne Azevedo MD DS: Diagnosis Problem List Completed Was Problem List Reviewed/Reconciled?: Yes Hospital Course Hospital Course Hospital course: 59-year-old male with past medical history of hypertension, hyperlipidemia, diabetes, hypothyroidism, BPH, diverticulosis, osteoporosis with previous wedge fracture of the T12 vertebra and, history of upper GI bleed secondary to duodenal ulcer first noted in 2022 initially presented to [facility] on 02/24 with chief complaints of melena and found to have a hemoglobin of 6.1. Patient was admitted for GI bleeding treatment and management. Initially he received only 2 units of PRBC and underwent an EGD on 02/24 which revealed a chronic pyloric ulcer extending into the duodenum along with a gastritis, but no active bleeding. Biopsies were taken at that time due to concern of possible malignancy. Biopsy results were negative for malignancy. During the night of 02/24 patient had a large melanotic bowel movement along with episode of presyncope. And subsequently repeat EGD was done which revealed bleeding at the site of the ulcer, endoclips were placed along with bipolar gold heater probe, epinephrine was also injected to achieve hemostasis. He was transferred to ICU, received 6 units of PRBC, 1 FFP and 1 platelets. However due to unstable hemodinamics patient required low-dose of Levophed. GI was closely following the case, decision was made to transfer patient to [facility] for possible IR evaluation. At [facility] CTA was obtained, since showed no evidence of active bleeding, IR consult for embolization was deemed unwarranted. Patient was stable at that time, H&H was stable, they advance the diet to full liquid at 02/28/2025, and patient was stable to transfer back. Patient returned to [facility] on 03/01/2025 and was monitored until 03/03 for any further signs of bleeding which did not occur. All patient's labs are now returning to his baseline. Patient is now clinically stable and fit for discharge to home. Discharge diagnoses: 1. GI bleed secondary to gastric ulcer s/p EGD with Endo Clip placement and bipolar gold heater probe 02/25/2025 2. Acute kidney injury?resolved 3. Insulin-dependent diabetes mellitus type 2 4. Primary hypertension 5. Hyperlipidemia 6. Benign prostatic hyperplasia Discharge plan: ? We have increased your omeprazole dose for your gastric ulcer. Take 1 tablet twice a day before meal. ? We have stopped your medication pantoprazole. ? We have put a hold on your medications amlodipine and hydrochlorothiazide. Do not take until you see your primary doctor. ? The biopsy results from your endoscopy were negative for cancer. ? Continue the rest of your home medication as before. ? Avoid taking any NSAIDs, including Aleve, ibuprofen, diclofenac. These may increase your risk of bleeding. ? Monitor for any signs of blood in your stool such as black or bright red b lood. If you notice please either call your primary doctor or present immediately to the emergency room. ? Follow-up with commercial real estate paralegal, Dr. Alanis within 2 weeks of discharge. - Follow up with your primary care physician within 1 week of discharge. If you do not have a primary care physician, please follow up with the [facility] Residents clinic ([phone]) ? If you experience any new, worsening or persistent symptoms either call your primary doctor, or dial 911 or present to the emergency department. We are grateful to be able to participate in Mr. Ceja's care. We wish him the best. Plan of care discussed with Attending Dr. Chavez Azevedo MD PGY 1 Disclaimer: This note was dictated by speech recognition. Minor errors in brake specialist may be present due to voice recognition software. Time Spent with Patient Time attestation: Total time spent providing and/or coordinating discharge services: Time spent: Greater than 30 minutes (47) Exam Vital Signs Temp Pulse Resp BP Pulse Ox O2 Del Method 97 F 83 16 136/74 H 99 Room Air 03/03/25 08:00 03/03/25 09:38 03/03/25 08:00 03/03/25 09:38 03/03/25 08:00 03/03/25 08:00 Narrative Exam Constitutional Alert, oriented x 3 and comfortable. Elderly male, mucous membrane pale and dry HEENT Vision grossly intact. Patent nares. Trachea midline. Fixed myopic left pupil from previous surgery Respiratory Chest normal on inspection and clear auscultation bilaterally Cardiovascular S1 and S2 audible, RRR. No murmurs carotid bruit. No gross JVD. Abdominal Soft, distended and non-tender, no signs of guarding or rebound. Para-umbilical hernia on the right Genitourinary No bladder tenderness, no flank pain. Normal to palpation Musculoskeletal Extremities tone within normal limits. Trace LE edema Neurological CN II - XII grossly intact. Extremity motor and sensation grossly intact. Skin Warm, dry and intact. Multiple purpura and ecchymosis on shins and upper extremities bilaterally Psychiatric Patient has good affect, is cooperative Discharge Plan Plan Patient Disposition: HOME (Self Care) Patient condition on transfer: Stable and Benefits outweigh risks Care Plan Goals: ? We have increased your omeprazole dose for your gastric ulcer. Take 1 tablet twice a day before meal. ? We have stopped your medication pantoprazole. ? We have put a hold on your medications amlodipine and hydrochlorothiazide. Do not take until you see your primary doctor. ? The biopsy results from your endoscopy were negative for cancer. ? Continue the rest of your home medication as before. ? Avoid taking any NSAIDs, including Aleve, ibuprofen, diclofenac. These may increase your risk of bleeding. ? Monitor for any signs of blood in your stool such as black or bright red blood. If you notice please either call your primary doctor or present immediately to the emergency room. ? Follow-up with commercial real estate paralegal, Dr. Alanis within 2 weeks of discharge. - Follow up with your primary care physician within 1 week of discharge. If you do not have a primary care physician, please follow up with the [facility] Residents clinic ([phone]) ? If you experience any new, worsening or persistent symptoms either call your primary doctor, or dial 911 or present to the emergency department. Prescriptions/Referrals Prescriptions/Med Rec: New omeprazole 40 mg capsule,delayed release(DR/EC) 40 mg PO BID 30 Days Qty: 60 1RF Continued atorvastatin 40 mg Tablet 40 mg PO QPM metformin 1,000 mg Tablet 1,000 mg PO BID tamsulosin 0.4 mg Capsule 0.4 mg PO QDAY Qty: 30 0RF finasteride 5 mg Tablet 5 mg PO QDAY Qty: 30 0RF benazepril 40 mg tablet 40 mg PO DAILY Patient Comments: take 1 tablet by mouth once daily magnesium oxide 400 mg magnesium capsule 400 mg PO BID Qty: 60 0RF insulin glargine [Basaglar KwikPen U-100 Insulin] 100 unit/mL (3 mL) insulin pen 35 unit SUBCUT QPM ondansetron 4 mg tablet,disintegrating 4 mg PO TID PRN (Reason: nausea and vomiting) Patient Comments: dissolve 1 tablet on top of the tongue three times a day if needed for nausea and vomiting Held hydrochlorothiazide 12.5 mg Tablet 12.5 mg PO QDAY Hold Instructions: Hold until you see your primary doctor amlodipine 5 mg tablet 5 mg PO DAILY Hold Instructions: Hold until you see PCP Patient Comments: take 1 tablet by mouth once daily Discontinued omeprazole 40 mg capsule,delayed release(DR/EC) 40 mg PO DAILY Patient Comments: take 1 capsule by mouth once daily pantoprazole 40 mg tablet,delayed release (DR/EC) 40 mg PO DAILY Patient Comments: take 1 tablet by mouth once daily Referrals: [facility] [Outside] Joshua Alanis MD [Physician] - No Primary/Family,Physician [Primary Care Provider] - Patient/Caregiver Discharge Instructions Education Materials: Bleeding Peptic Ulcer: Treatment, Understanding Gastric Ulcers Print Language: Nauruan Stand Alone Forms: Samantha Award Info., Patient Portal Info Letter Discharge Order Discharge Orders: Discharge (Routine); Ordered 03/03/25 Ordered By: Dwayne Azevedo Quality Discharge Quality Measures none (SCDs only) Attestestation MD Attestation I have discussed and was present for the essential components of the discharge h istory, physical examination, diagnosis, and discharge treatment plan with the resident. I agree with the patient's discharge care as documented by the resident and amended herein by me. Maxwell Byrne, . The patient understood all discharge instructions, all questions were answered satisfactorily. The patient was instructed to return to the Emergency Department is symptoms worsened or persisted. Patient's hemoglobin was stable since transfer back to our hospital, no further signs of bleeding, patient feels well overall. Cleared for discharge from gastroenterology standpoint with Protonix 40 mg twice daily. Biopsy results were negative from recent EGD. Will need to follow-up with his primary care physician within 5 to 7 days of discharge, the patient was stable, afebrile, tolerating p.o. intake and ambulatory at time of discharge home. Although this document has been carefully reviewed, there may still be some phonetic and other typographical errors. These errors are purely grammatical due to imperfections in the software program and should not be construed in any way to compromise the substance of the patient's medical care during this visit.
== END 2025-03-03 11:53 | disposition home or self-care (01) | DRG 241 ==
PROVIDERS: Student in an Organized Health Care Education/Training Program; Admitting Provider Student in an Organized Health Care Education/Training Program; Visit Provider Student in an Organized Health Care Education/Training Program
DX: K25.4 Chronic or unspecified gastric ulcer with hemorrhage (principal); I10 Essential (primary) hypertension; E78.5 Hyperlipidemia, unspecified; E03.9 Hypothyroidism, unspecified; E11.9 Type 2 diabetes mellitus without complications; K29.61 Other gastritis with bleeding; M81.0 Age-related osteoporosis without current pathological fracture; N40.0 Benign prostatic hyperplasia without lower urinary tract symptoms; N17.9 Acute kidney failure, unspecified; Z79.4 Long term (current) use of insulin; Z79.84 Long term (current) use of oral hypoglycemic drugs; Z79.899 Other long term (current) drug therapy
CPT/HCPCS: 36415; 80053; 83735; 84100; 85014; 85018; 85025; 87081; J1815; J2470; J3475; A9270

== ENCOUNTER → 2025-03-08 | Outpatient (CLI) | payer MEDICAID, SELFPAY ==
--- NOTE | 2025-03-04 15:55 | PC.SS ---
Late Entry Cecilio Ceja ?is 59 year old male admitted to [facility] for generalized enlarged lymnph nodes. SS conducted bedside contact with the patient to complete initial assessment and to discuss discharge planning.? SW used all precautionary measures to complete initial. Role and reason for the contact was explained to Jose M. Pt is alert and oriented times 4. Pt provided authorization for to be present while assessment conducted. Pt gave authorization for son answer questions. Patient confirmed demographic information and confirmed address listed on facesheet. Pt lives with family. Patient identifies Carie Eduardo, spouse, as his surrogate decision maker. Pt states prior to hospitalization he is able to complete ADL?s independently. Pt does not use DME nor Oxygen. Pt is not diabetic and does not have need for dialysis. Pt confirmed no history of mental health or substance use. Pts PCP is [facility] in [place]. Pharmacy of choice is [facility]. Discharge options discussed and the pt return to home. ?Family will provide transportation upon DC. Advance life directive discussed and pt not receptive. No further intervention required at this time, health social work professor would be available to address any further concerns. DC Plan: Home ? Contact: Carie Eduardo, spouse, Address: Confirmed on face sheet PCP [facility]
--- NOTE | 2025-03-08 13:30 | XR_ITS ---
Examination: CT abdomen with intravenous contrast CT pelvis with intravenous contrast 2-D coronal reconstructions 2-D sagittal reconstructions Date and time of exam:March 08, 2025 1353 hours Comparison February 24, 2025 INDICATIONS: Gastric ulcer history with generalized abdominal pain one year. CTDI: vol (mGy) 10.9 DLP: (mGycm) 413 Technique: Multiple axial sections of the abdomen and pelvis have been obtained. 64 slice high-resolution scanner used. 3 mm axial sections have been obtained, post intravenous injection 60 cc Isovue-370 2-D sagittal, coronal reconstructions obtained. Low dose protocols were performed. One or more of the following dose reduction techniques were used; automated exposure control, adjustment of the mA and/or KV according to patient size, use of iterative reconstruction technique. Findings: Significant mucosal thickening in the fundus of the stomach anterolisthesis extent in the gastric antrum and duodenal bulb No focal liver or splenic lesions No gallstones No pancreatic or adrenal mass No renal or ureteral calculi Perinephric stranding No bowel obstruction Normal appendix No diverticulitis Urinary bladder wall thickening up to 3 mm Transverse prostate dimension 4.4 cm Moderate osteopenia IMPRESSION: Significant mucosal thickening in the stomach as above and duodenal bulb, differential would include gastritis active peptic disease duodenum Mild cystitis pattern
== END | disposition home or self-care (01) ==
LOC: CCTX 12:40
PROVIDERS: PCP Family Medicine; Referring Provider Internal Medicine Hematology; Visit Provider Internal Medicine Hematology
DX: K31.89 Other diseases of stomach and duodenum (principal)
CPT/HCPCS: 74177; A4649; Q9967

== ENCOUNTER 2025-04-09 15:22 | Outpatient (RCR) | payer MEDICAID, SELFPAY ==
[2025-04-09 16:38] LABS: Basophils % (Auto) 0 % (0-2.5); Eosinophils % (Auto) 0 % (0-10); Hematocrit 28.4 % (41.0-53.0); Hemoglobin 9.1 g/dL (13.5-16.0); Immature Granulocytes % (Auto) 4 % (0-0); Lymphocytes % (Auto) 7 % (10-50); Mean Corpuscular Hemoglobin 26.6 pg (25.0-35.0); Mean Corpuscular Volume 83 fL (80-100); Monocytes # (Auto) 0.9 Thou/mm3 (0.0-0.8); Monocytes % (Auto) 6 % (0-12); Neutrophils # (Auto) 11.3 Thou/mm3 (1.8-7.7); Neutrophils % (Auto) 82 % (37-80); Nucleated Red Blood Cell # 0.03 Thou/mm3 (0.00-0.00); Nucleated Red Blood Cell % 0 /100 WBC (0); Platelet Count 263 Thou/mm3 (140-440); RDW Standard Deviation 44.3 fL (35.1-43.9); Red Blood Count 3.42 Miln/mm3 (4.50-5.90); White Blood Count 13.8 Thou/mm3 (3.8-10.6)
[2025-04-09 17:00] LABS: Alanine Aminotransferase 28 U/L (10-49); Albumin/Globulin Ratio 2.1 (1.2-2.2); Alkaline Phosphatase 59 U/L (46-116); Anion Gap 12 (7-16); Aspartate Amino Transferase 15 U/L (0-34); BUN/Creatinine Ratio 34 Ratio (12-20); Bilirubin,Total 0.2 mg/dL (0.3-1.2); Blood Urea Nitrogen 27 mg/dL (9-23); Carbon Dioxide 18.8 mMol/L (20.0-31.0); Chloride 111 mMol/L (98-107); Creatinine (Component) 0.8 mg/dL (0.6-1.3); Globulin 1.9 gm/dL (2.3-3.5); Glucose 161 mg/dL (74-106); Osmolality,Calculated 291 (275-295); Potassium 4.3 mMol/L (3.4-5.1); Sodium 142 mMol/L (136-145); Total Protein 5.9 gm/dL (5.7-8.2); eGFR > 60 See Note
[2025-04-09 17:31] LABS: Ferritin 30 ng/mL (10.5-307.3); Iron 20 mcg/dL (65-175); Percent Iron Saturation 6 % (20-55); Total Iron Binding Capacity 331 mcg/dL (250-425); Unsaturated Iron Binding 311 (225-295)
[2025-04-09 17:33] LABS: Folate > 24.00 ng/mL (>5.38); Vitamin B12 > 2000 pg/mL (211-911)
--- NOTE | 2025-04-29 18:33 | CTCFLWUP_ITS ---
Patient: ISABEL CEJA : 1965 Page 3 of 4 FOLLOW UP NOTE DATE OF SERVICE: 04/09/2025 NAME: ISABEL CEJA ACCOUNT: [id number] : 1965 AGE: 60 INTERVAL HISTORY: Marcial Hernandes, a male with gastritis and stomach ulcers, presented for follow- up after surgery to repair stomach perforations. CT scan showed inflammation but no cancer. Patient reported resolution of GI bleeding post-surgery. Previously prescribed iron supplementation for anemia was reportedly ineffective due to concurrent bleeding. Blood work was ordered to check iron and hemoglobin levels, with plans for possible additional iron supplementation or blood transfusion based on results. ONCOLOGY HISTORY: DIAGNOSIS: ?CloneDiagnosis? Iron deficiency anemia, unspecified [ICD10] D50.9 TREATMENT HISTORY: Care?Plan Start?Date Cycle Day Intent FERAheme?4?doses 10/12/2023 1 28 Palliative VENOfer?200mg?IV?wkly?for?5?weeks 11/10/2023 1 70 Palliative FERAheme 04/03/2024 1 30 Palliative FERAheme 10/25/2024 1 30 Palliative VENOfer?200mg?IV?wkly?for?10?weeks 04/09/2025 1 70 Maintenance HISTORY OF PRESENT ILLNESS: Subjective: Chief Complaint Follow-up for CT scan results, gastritis symptoms, post-surgical care for stomach ulcers, possible anemia History of Present Illness Marcial Hernandes presents for follow-up after a recent CT scan and surgical intervention for gastric ulcers. The patient reports a history of gastritis and recent gastrointestinal bleeding. The patient underwent a CT scan which revealed significant inflammation in his stomach, but no evidence of cancer. He recently had emergency surgery to repair holes in his stomach caused by ulcers. Since the surgery, the patient reports that he no longer experiences bleeding. Prior to the surgery, the patient was prescribed iron supplementation for anemia related to the gastrointestinal bleeding. However, he reports that the iron treatment may not have been very effective, stating, it was kind of like bleeding with the iron, so I don't know if it worked that much. The patient's current iron levels and hemoglobin status are unknown, pending new blood work. Medications and Supplements - Iron - Patient reports it caused bleeding. - Unclear if it was effective. Review of Systems Gastrointestinal: Positive for previous bleeding. Negative for current bleeding. Objective: Laboratory, Imaging, and Diagnostic Test Results - CT scan: Shows inflammation in the stomach, no cancer detected. OTHER MEDICAL HISTORY/CONDITIONS: diabetes aneia high blood pressure COVID hernia visaila?? stomach 2 mths ago had transfuison during that time FAMILY HISTORY: Patient?denies?family?cancer?history. 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 benazepril - 40 mg 1 tab Daily 2. Carafate - 1 gm Daily 3. Cymbalta - 60 mg Daily 4. finasteride - 5 mg 1 tab Daily 5. Lantus - As directed 6. metformin - 1,000 mg Twice a Day 7. omeprazole - 20 mg 1 Capsule Daily 8. pantoprazole - 40 mg 1 Daily 9. tamsulosin - 0.4 mg 1 Capsule Daily?Palabra Meds? Medications Last Reconciled by Carie Coleman MD on 04/09/2025 ALLERGIES: No Known Drug Allergies REVIEW OF SYSTEMS: A complete 14-point review of systems was performed and is negative except as noted in interval history. PHYSICAL EXAMINATION:?CloneBlock PE? VITAL SIGNS: Temperature?98.3, B/P?157/70, Oxygen?Saturation?98% Weight?147?lbs PAIN: 0 - No pain ECOG Performance Status: 0 - Asymptomatic and fully active The patient appeared well-nourished, alert, and in no apparent distress via video conferencing. LABORATORY DATA: I have personally reviewed and interpreted each of the patient?s relevant lab tests, abnormal findings are below: Date 03/03/25 04/09/25 ??WHITE?BLOOD?COUNT?(Thou/mm3) 7.5 13.8?H ??RED?BLOOD?COUNT?(Miln/mm3) 2.66?L 3.42?L ??HEMOGLOBIN?(gm/dl) 7.9?L 9.1?L ??HEMATOCRIT?(%) 23.1?L 28.4?L ??PLATELET?COUNT?(Thou/mm3) 251 263 ??NEUTROPHILS?%,?AUTO?(%) 76 82?H ??LYMPH?%,?AUTO?(%) 12 7?L ??NEUTROPHILS,?AUTO?(Thou/mm3) 5.7 11.3?H ??GLUCOSE,RANDOM?(mg/dL) ? 161?H ??BLOOD?UREA?NITROGEN?(mg/dL) ? 27?H ??CREATININE?(mg/dL) ? 0.80 ??SODIUM?(mmol/L) ? 142 ??POTASSIUM?(mmol/L) ? 4.3 ??CHLORIDE?(mmol/L) ? 111?H ??CrCl?(CandG)?(ml/min) ? 90.29 ??AST/SGOT?(Unit/L) ? 15 ??ALT/SGPT?(Unit/L) ? 28 ??ALKALINE?PHOSPHATASE?(Unit/L) ? 59 ??BILIRUBIN,?TOTAL?(mg/dL) ? 0.2?L ??PROTEIN?TOTAL?(gm/dl) ? 5.9 ??ALBUMIN,?SERUM?(gm/dl) ? 4.0 ??GLOBULIN?(gm/dl) ? 1.9?L ??ALBUMIN/GLOBULIN?RATIO ? 2.1 ??CALCIUM,?SERUM?(mg/dL) ? 10.0 ??CALCIUM?SERUM?(CORRECTED)?(mg/dL) ? 10.0 ??TOTAL?IRON?BINDING?CAP?(S*)?(mcg/dL) ? 331 ??UNBOUND?IBC?(mcg/dL) ? 311?H ASSESSMENT/PLAN:?Ban Marion Assessment/Plan? Assessment and Plan: Marcial Hernandes, male patient with history of gastritis and stomach ulcers, presenting for follow-up after recent surgery to repair stomach perforations. Gastritis with history of stomach ulcers and recent surgical repair Assessment: Patient has a history of severe gastritis with stomach ulcers that recently required surgical intervention to repair perforations. A CT scan showed significant inflammation in the stomach but no evidence of cancer. The patient's symptoms are likely attributed to the severe gastritis. There is a history of gastrointestinal bleeding, which has resolved post-surgery. Iron deficiency was previously noted and treated, but the patient reported that the iron supplementation may not have been effective due to concurrent bleeding. Plan: - Order blood work today to check iron levels and hemoglobin - If iron levels are low, administer additional iron supplementation - If hemoglobin is low, consider blood transfusion - Schedule follow-up appointment to review blood work results and adjust treatment plan accordingly ORDERS: Order # Description [id number] Comprehensive Metabolic Panel - 12 + CBC with Auto Diff [id number] Iron Panel + Ferritin + Vitamin B-12 + Folic Acid; Serum [id number] Follow Up 2 Months RETURN TO CLINIC: I reviewed the diagnosis, prognosis, and recommended treatment/procedure options with the patient (and/or their legal customer relations representative), including the potential benefits, risks, side effects and alternative therapies. We also discussed the option of no treatment and the possibility of clinical trial participation, if applicable. All questions were addressed, and they demonstrated understanding. They provided informed consent to proceed with the proposed plan of care. BILLING AND COMPLIANCE: I reviewed external records from providers outside my specialty as summarized above. I spent a total of 50 minutes on this patient?s care on the day of their visit excluding time spent related to any billed procedures. This time includes time spent with the patient as well as time spent documenting in the medical record, reviewing patients records and tests, obtaining history, placing orders, communicating with other healthcare professionals, counseling the patient, family or caregiver, and/or care coordination for the diagnoses above. Electronically Signed by: Jacobo Marion MD T: 6:30 PM CC: PCP: Yong Ceja Referring: Yong Ceja This document was completed utilizing speech recognition software. Grammatical errors, random word insertions, pronoun errors, and incomplete sentences are an occasional consequence of this system due to software limitations, ambient noise, and hardware issues. Any formal questions or concerns about the content, text or information contained within the body of this dictation should be directly addressed to the provider for clarification.
== END 2025-04-09 23:59 | disposition home or self-care (01) ==
LOC: SCTC 15:22
PROVIDERS: PCP Family Medicine; Referring Provider Family Medicine; Visit Provider Internal Medicine Hematology & Oncology
DX: Z09 Encounter for follow-up examination after completed treatment for conditions other than malignant neoplasm (principal); Z87.19 Personal history of other diseases of the digestive system
CPT/HCPCS: 36415; 80053; 82607; 82728; 82746; 83540; 83550; 85025; 99212; G0463

== ENCOUNTER 2025-05-10 09:09 | Inpatient (IN) | payer MEDICAID, SELFPAY ==
[2025-05-10 09:23] VITALS: BP 138/80; PULSE 113; RESP 16; TEMP 36.9; O2SAT 98; BMI 27.7
--- NOTE | 2025-05-10 09:32 | XR_ITS ---
Examination: CT abdomen with intravenous contrast CT pelvis with intravenous contrast 2-D coronal reconstructions 2-D sagittal reconstructions Date and time of exam:May 10, 2025 1108 hours Comparison March 08, 2025 INDICATIONS: Abdominal pain today, history gastrointestinal bleed post surgery. CTDI: vol (mGy) 6.1 DLP: (mGycm) 346 Technique: Multiple axial sections of the abdomen and pelvis have been obtained. 64 slice high-resolution scanner used. 3 mm axial sections have been obtained, post intravenous injection 60 cc Isovue-370 2-D sagittal, coronal reconstructions obtained. Low dose protocols were performed. One or more of the following dose reduction techniques were used; automated exposure control, adjustment of the mA and/or KV according to patient size, use of iterative reconstruction technique. Findings: There remains significant mucosal thickening involving the stomach No focal liver or splenic lesions No gallstones No pancreatic or adrenal mass No renal or ureteral calculi Perinephric stranding Normal appendix No bowel obstruction No abnormal contrast extravasation in the gastrointestinal tract on this non-CTA study Normal seminal vesicles Transverse prostate dimension 4.2 cm Contracted urinary bladder with minimal urinary bladder wall thickening Prominent osteopenia IMPRESSION: There remains significant mucosal thickening involving the stomach, clinical correlation advised Perinephric stranding Normal appendix No bowel obstruction Mild prostatomegaly Mild cystitis pattern
[2025-05-10 09:59] LABS: Basophils # (Auto) 0.1 Thou/mm3 (0.0-0.2); Basophils % (Auto) 1 % (0-2.5); Eosinophils # (Auto) 0.1 Thou/mm3 (0.0-0.5); Eosinophils % (Auto) 0 % (0-10); Hematocrit 35.4 % (41.0-53.0); Hemoglobin 11.3 g/dL (13.5-16.0); Immature Granulocytes Auto 1.71 Thou/mm3 (0.00-0.00); Lymphocytes # (Auto) 1.9 Thou/mm3 (1.0-4.8); Lymphocytes % (Auto) 10 % (10-50); Mean Corpuscular HGB Conc 31.9 g/dl (31.0-37.0); Mean Corpuscular Hemoglobin 29.0 pg (25.0-35.0); Mean Corpuscular Volume 91 fL (80-100); Monocytes # (Auto) 1.3 Thou/mm3 (0.0-0.8); Monocytes % (Auto) 7 % (0-12); Neutrophils # (Auto) 14.7 Thou/mm3 (1.8-7.7); Neutrophils % (Auto) 74 % (37-80); Nucleated Red Blood Cell # 0.11 Thou/mm3 (0.00-0.00); Nucleated Red Blood Cell % 1 /100 WBC (0); Platelet Count 412 Thou/mm3 (140-440); RDW Standard Deviation 64.5 fL (35.1-43.9); Red Blood Count 3.90 Miln/mm3 (4.50-5.90); White Blood Count 19.8 Thou/mm3 (3.8-10.6)
[2025-05-10 10:12] LABS: Collection Type, Urine Clean Catch; Squamous Epithelial Cell,Urine 0 /hpf (0-5)
[2025-05-10 10:22] LABS: Alanine Aminotransferase 24 U/L (10-49); Albumin, Serum 4.3 gm/dL (3.4-4.8); Albumin/Globulin Ratio 2.0 (1.2-2.2); Alkaline Phosphatase 77 U/L (46-116); Anion Gap 9 (7-16); Aspartate Amino Transferase 16 U/L (0-34); BUN/Creatinine Ratio 29 Ratio (12-20); Bilirubin,Total 0.4 mg/dL (0.3-1.2); Blood Urea Nitrogen 26 mg/dL (9-23); Calcium 10.2 mg/dL (8.3-10.6); Calcium (Corrected) 10.2 mg/dL (8.5-10.1); Carbon Dioxide 25.2 mMol/L (20.0-31.0); Chloride 103 mMol/L (98-107); Creatinine (Component) 0.9 mg/dL (0.6-1.3); Estimated Creatinine Clearance 67.1 mL/min (>60); Globulin 2.2 gm/dL (2.3-3.5); Glucose 230 mg/dL (74-106); Lipase 44 U/L (12-53); Osmolality,Calculated 285 (275-295); Potassium 3.9 mMol/L (3.4-5.1); Procalcitonin 0.15 ng/ml (0.0-0.49); Sodium 137 mMol/L (136-145); Total Protein 6.5 gm/dL (5.7-8.2); eGFR > 60 See Note
[2025-05-10 10:23] LABS: Bilirubin,Urine Negative (Negative); Blood,Urine Negative (Negative); Clarity,Urine Clear (Clear/Hazy); Color,Urine Lt-Yellow (Lt Yel-Yel); Glucose, Urine Trace (Negative); Ketones,Urine Negative (Negative); Leukocyte Esterase,Urine Negative (Negative); Nitrite,Urine Negative (Negative); PH,Urine 7.0 (5.0-7.0); Protein,Urine Negative (Neg - Trace); RBC,Urine 3 /hpf (0-3); Specific Gravity,Urine 1.024 (1.001-1.035); Urobilinogen,Urine Negative mg/dL (0.0-1.0); WBC,Urine 1 /hpf (0-5)
--- NOTE | 2025-05-10 11:28 | XR_ITS ---
Examination: AP chest single view Technique one AP portable upright chest single view Date and time: May 10, 2025 1206 hours INDICATIONS: Vomiting coughing beginning 2 days ago. FINDINGS: Atelectasis, mild in the left lower lung zone No lobar pneumonia Normal heart size The osseous structures are intact IMPRESSION: No lobar pneumonia
--- NOTE | 2025-05-10 11:35 | PD.EDABDPN ---
ED Abdominal Pain RME/HPI General Chief Complaint: Weakness Stated complaint: FEELING WEAK VOMITING X 2 DAYS Arrival date/time: 05/10/25 09:09 Limitations: no limitations RME / HPI RME / HPI narrative: 60 year old male with history of hypertension, diabetes, hyperlipidemia, hypothyroidism, BPH, diverticulosis, previous upper GI bleed secondary to duodenal ulcer presents to the ED for evaluation of abdominal pain beginning 2 days ago. Described as aching in sensation that is located most to the left side of abdomen without radiation, rating as moderate. Accompanied by nausea and vomiting. Denies fevers, chills, diarrhea, constipation, or urinary symptoms. Social hx: Patient reports he is able to walk 2-3 blocks and previously worked in the [employer]. Related Data Home Medications ?Medication ?Instructions ?Recorded ?Confirmed atorvastatin 40 mg tablet 40 mg PO QPM 12/29/18 03/02/25 hydrochlorothiazide 12.5 mg tablet 12.5 mg PO QDAY 11/25/19 03/02/25 Held on 03/03/25. Instructions: Hold until you see your primary doctor metformin 1,000 mg tablet 1,000 mg PO BID 11/25/19 03/02/25 benazepril 40 mg tablet 40 mg PO DAILY 11/16/24 03/02/25 insulin glargine 100 unit/mL (3 35 unit subcut QPM 02/24/25 03/02/25 mL) subcutaneous pen (Basaglar KwikPen U-100 Insulin) amlodipine 5 mg tablet 5 mg PO DAILY 03/02/25 03/02/25 Held on 03/03/25. Instructions: Hold until you see PCP ondansetron 4 mg disintegrating 4 mg PO TID PRN nausea and vomiting 03/02/25 03/02/25 tablet Previous Rx's ?Medication ?Instructions ?Recorded finasteride 5 mg tablet 5 mg PO QDAY #30 tabs 05/16/23 tamsulosin 0.4 mg capsule 0.4 mg PO QDAY #30 caps 05/16/23 magnesium oxide 400 mg PO BID #60 caps 01/23/25 omeprazole 40 mg capsule,delayed 40 mg PO BID 1 month #60 caps 03/03/25 release Allergies Allergy/AdvReac Type Severity Reaction Status Date / Time No Known Allergies Allergy Verified 05/10/25 09:14 Review of Systems Review of Systems Systems Reviewed: All systems reviewed, normal except as documented Past Medical History Past Medical History CARDIAC: Positive Cardiac Disorders (HIGH BP), Hypercholesterolemia, Edema and Hypertension RESPIRATORY: Negative Chronic Obstructive Pulmonary Disease (COPD) GASTROINTESTINAL: Positive Gastrointestinal Disorders, Gastrointestinal Bleed and Ulcer MUSCULOSKELETAL: Positive Arthritis ENT: Positive Cataracts ENDOCRINE: Positive Endocrine Disorders and Diabetes Mellitus Type 2 HEMATOLOGIC: Positive Blood Disorders and Anemia PSYCHO/SOCIAL: Positive Anxiety Family History FAMILY HISTORY: Positive Family Cancer and Family Surgery Surgical History SURGICAL: Positive Ear Surgery, Eye Surgery and Abdominal Surgery Social History SMOKING STATUS: Never smoker SUBSTANCE USE: does not use ED Exam General Limitations: Present no limitations General appearance: Present alert and in no apparent distress Head Head exam: Present atraumatic, normocephalic and normal inspection Eye Eye exam: Present normal appearance, PERRL and EOMI ENT ENT exam: Present normal exam, normal oropharynx and mucous membranes dry Neck Neck exam: Present normal inspection, full ROM and trachea midline Chest Chest inspection: Present normal inspection and symmetric chest wall rise Respiratory Respiratory exam: Present normal lung sounds bilaterally Cardiovascular Cardiovascular exam: Present regular rate, normal rhythm and normal heart sounds Abdominal Exam Abdominal exam: Present soft, tenderness (mid lower and left lower quadrant +1 tenderness), normal bowel sounds and other (no ascites ); Absent distention Extremities Exam Extremities exam: Present normal inspection and full ROM Back Exam Back exam: Present normal inspection and full ROM Neurological Exam Neurological exam: Present alert, oriented X3 and CN II-XII intact Psychiatric Psychiatric exam: Present normal affect and normal mood Skin Skin exam: Present warm, dry, intact and normal color Course Quality Measures none Orders Category Date Time Status CT Screening NOW Care 05/10/25 09:[address] Screening X1 Care 05/10/25 09:32 Active Fibre Cement [place] NOW Care 05/10/25 11:28 Active Continuous Pulse Oximetry NOW Care 05/10/25 11:28 Completed Insert IV NOW Care 05/10/25 11:[address] abdomen pelvis w con Stat Exams 05/10/25 09:32 Completed XR chest 1V portable Stat Exams 05/10/25 11:28 Completed Blood Culture (Lab) Stat Lab 05/10/25 11:58 Received CBC Stat Lab 05/10/25 09:47 Completed Comprehensive Metabolic Panel Stat Lab 05/10/25 09:47 Completed Lactate (Lactic Acid) Stat Lab 05/10/25 14:14 Results Lipase Stat Lab 05/10/25 09:47 Completed Partial Thromboplastin Time Stat Lab 05/10/25 09:47 Completed Procalcitonin Stat Lab 05/10/25 09:47 Completed Prothrombin Time with INR Stat Lab 05/10/25 09:47 Completed Troponin I Stat Lab 05/10/25 09:47 Completed Urinalysis Stat Lab 05/10/25 10:03 Completed Urinalysis Stat Lab 05/10/25 11:28 Ordered Morphine Inj Med 05/10/25 11:46 Discontinued 2 mg IVP X1 ONE Ondansetron Inj [Zofran Inj] Med 05/10/25 11:46 Discontinued 4 mg IVP X1 ONE Pantoprazole Inj [Protonix Inj] Med 05/10/25 14:01 Discontinued 40 mg IVP X1 ONE Piper/Tazo 3.375 gm Premix [Zosyn] Med 05/10/25 14:01 Discontinued 3.375 gm in 50 ml IV X1 Sodium Chloride 0.9% 1000 ml [Ns] 1,000 ml Med 05/10/25 11:28 Active IV 100 mls/hr Sodium Chloride 0.9% 1000 ml [Ns] 1,000 ml Med 05/10/25 14:35 Active IV 999 mls/hr Oxygen Delivery NOW RT 05/10/25 11:28 Active Vital Signs Vital signs: Vital Signs Temperature 98.5 F 05/10/25 09:23 Pulse Rate 113 H 05/10/25 09:23 Respiratory Rate 16 05/10/25 09:23 Blood Pressure 138/80 H 05/10/25 09:23 Pulse Oximetry (%) 98 05/10/25 09:23 Oxygen Delivery Method Room Air 05/10/25 09:23 Pulse ox is 98% on room air which is adequate. Abdominal Pain MDM MDM Narrative MDM Narrative:: Jeanette De La Torre am scribing for and in the presence of Dr. Rogers. Patient data External records reviewed:: [facility] previous records (I reviewed admission from 02/28/2025 through 03/03/2025) Clinical information provided by:: patient Social determinants that could affect healthcare access:: none Patient has the following chronic illnesses:: hypertension, diabetes, hyperlipidemia, hypothyroidism, BPH, diverticulosis, previous upper GI bleed secondary to duodenal ulcer How is presenting disease/condition affected by chronic disease/condition?: exacerbated by Evaluation data The following diagnostics were reviewed and interpreted by me:: lab results and radiology exam(s) Lab and/or radiology exams considered but not ordered:: None Interpretation Summary: Ordering Physician: Jonas Rodriguez PA-C Date of Service: 05/10/25 Procedure(s): CT abdomen pelvis w con Accession Number(s): [id number] cc: Jorge Corado PA-C; John Abbott MD; Jonas Rodriguez PA-C~ Examination: CT abdomen with intravenous contrast CT pelvis with intravenous contrast 2-D coronal reconstructions 2-D sagittal reconstructions Date and time of exam:May 10, 2025 1108 hours Comparison March 08, 2025 INDICATIONS: Abdominal pain today, history gastrointestinal bleed post surgery. CTDI: vol (mGy) 6.1 DLP: (mGycm) 346 Technique: Multiple axial sections of the abdomen and pelvis have been obtained. 64 slice high-resolution scanner used. 3 mm axial sections have been obtained, post intravenous injection 60 cc [id number] 2-D sagittal, coronal reconstructions obtained. Low dose protocols were performed. One or more of the following dose reduction techniques were used; automated exposure control, adjustment of the mA and/or KV according to patient size, use of iterative reconstruction technique. Findings: There remains significant mucosal thickening involving the stomach No focal liver or splenic lesions No gallstones No pancreatic or adrenal mass No renal or ureteral calculi Perinephric stranding Normal appendix No bowel obstruction No abnormal contrast extravasation in the gastrointestinal tract on this non-CTA study Normal seminal vesicles Transverse prostate dimension 4.2 cm Contracted urinary bladder with minimal urinary bladder wall thickening Prominent osteopenia IMPRESSION: There remains significant mucosal thickening involving the stomach, clinical correlation advised Perinephric stranding Normal appendix No bowel obstruction Mild prostatomegaly Mild cystitis pattern Dictated By: John Abbott MD Signed By: <Electronically signed by John Abbott MD in [place]> 05/10/25 1133 Ordering Physician: Tripp Rogers MD Date of Service: 05/10/25 Procedure(s): XR chest 1V portable Accession Number(s): [id number] cc: Jorge Corado PA-C; Tripp Rogers MD; John Abbott MD~ Examination: AP chest single view Technique one AP portable upright chest single view Date and time: May 10, 2025 1206 hours INDICATIONS: Vomiting coughing beginning 2 days ago. FINDINGS: Atelectasis, mild in the left lower lung zone No lobar pneumonia Normal heart size The osseous structures are intact IMPRESSION: No lobar pneumonia Dictated By: John Abbott MD Signed By: <Electronically signed by John Abbott MD in [place]> 05/10/25 1213 Medications / Prescriptions Medications or Prescriptions considered but not ordered:: none Medication administrations:: Medication Administration History Sodium Chloride (Ns) 1,000 mls @ 100 mls/hr IV .Q10H ONE Stop: 05/10/25 21:27 Last Admin: 05/10/25 12:00 Dose: 100 mls/hr Documented By: VL Sodium Chloride (Ns) 1,000 mls @ 999 mls/hr IV .Q1H1M ONE Stop: 05/10/25 15:35 Last Admin: 05/10/25 14:45 Dose: 999 mls/hr Documented By: DB Discontinued Medications Piperacillin/Tazobactam/Dextrose (Zosyn) 3.375 gm in 50 mls @ 100 mls/hr IV X1 ONE Stop: 05/10/25 14:30 Last Infusion: 05/10/25 14:52 Dose: Infused Documented By: Admin: 05/10/25 14:22 Dose: 100 mls/hr Documented By: VL Morphine Sulfate (Morphine Sulf Inj 10 Mg/Ml Vial) 2 mg IVP X1 ONE Stop: 05/10/25 11:47 Last Admin: 05/10/25 11:58 Dose: 2 mg Documented By: VL Ondansetron HCl (Ondansetron Inj 2 Mg/Ml Inj 2 Ml) 4 mg IVP X1 ONE; Protocol Stop: 05/10/25 11:47 Last Admin: 05/10/25 11:58 Dose: 4 mg Documented By: VL Pantoprazole Sodium (Pantoprazole Inj 40 Mg Vial) 40 mg IVP X1 ONE Stop: 05/10/25 14:02 Last Admin: 05/10/25 14:22 Dose: 40 mg Documented By: VL See above Consultations Consultation(s) initiated? (list below): Yes Consultation #1 (Physician, Specialty, Details): I spoke with GI Dr. Alanis. Discussed patients PMHx, HPI, ED course, exam findings, labs, and radiology results. He agrees to consult. Time: 15:20 Consultation #2 (Physician, Specialty, Details): I spoke with the resident working with Dr. Watson. Discussed patients PMHx, HPI, ED course, exam findings, labs, and radiology results. The hospitalist agree to accept the patient for admission. Time: 15:25 Diagnosis Differential diagnosis abdominal pain: abdominal pain, constipation and diverticulitis Most likely diagnosis given after review of the tests above:: Leukocytosis Abdominal pain Gastric ulcer Admission Indicated Admission indicated?: indicated Admission Request Was there a request for admission?: Yes Admission Attestation Admission request attestation: Discussed case with [] from Hospitalist service regarding admission. Discussed patients ED course, exam findings, labs, and radiology results. The Hospitalist [agrees,declines] to accept the patient for admission. Disposition Plan Disposition Plan: Admit Discharge Plan Plan Patient Disposition: Admit Acute Care w/in Hospital Prescriptions/Referrals Prescriptions/Med Rec: No Action atorvastatin 40 mg Tablet 40 mg PO QPM metformin 1,000 mg Tablet 1,000 mg PO BID hydrochlorothiazide 12.5 mg Tablet 12.5 mg PO QDAY tamsulosin 0.4 mg Capsule 0.4 mg PO QDAY Qty: 30 0RF finasteride 5 mg Tablet 5 mg PO QDAY Qty: 30 0RF benazepril 40 mg tablet 40 mg PO DAILY Patient Comments: take 1 tablet by mouth once daily magnesium oxide 400 mg magnesium capsule 400 mg PO BID Qty: 60 0RF insulin glargine [Basaglar KwikPen U-100 Insulin] 100 unit/mL (3 mL) insulin pen 35 unit SUBCUT QPM amlodipine 5 mg tablet 5 mg PO DAILY Patient Comments: take 1 tablet by mouth once daily ondansetron 4 mg tablet,disintegrating 4 mg PO TID PRN (Reason: nausea and vomiting) Patient Comments: dissolve 1 tablet on top of the tongue three times a day if needed for nausea and vomiting omeprazole 40 mg capsule,delayed release(DR/EC) 40 mg PO BID 30 Days Qty: 60 1RF Referrals: Jorge Corado PA-C [Primary Care Provider] - In 1 week Problem List Clinical Impression: Leukocytosis, Gastric ulcer, Abdominal pain Patient/Caregiver Discharge Instructions Print Language: Romanian Stand Alone Forms: Samantha Award Info., Patient Portal Info Letter
[2025-05-10] MEDS: ONDANSETRON INJ 2 MG/ML INJ 2 ML 4 MG IVP (11:58)
[2025-05-10] MEDS: MORPHINE SULF INJ 10 MG/ML VIAL 2 MG IVP (11:58)
[2025-05-10] MEDS: SODIUM CHLORIDE 0.9% 1000 ML 1,000 ML 100 ML IV (12:00)
[2025-05-10 12:06] VITALS: BP 98/75; PULSE 99; RESP 19; TEMP 37; O2SAT 97
[2025-05-10 12:06] LABS: INR 0.9 (0.9-1.3); Partial Thromboplastin Time 24.3 Seconds (22.0-36.0); Prothrombin Time 10.3 Seconds (9.0-12.2)
--- NOTE | 2025-05-10 12:11 | PC.NURSE ---
HOSPITALIST TEAM IN TO ASSESS PATIENT
[2025-05-10 12:17] LABS: Troponin I < 0.020 ng/mL (0.0-0.045)
[2025-05-10 14:22] LABS: Lactate (Lactic Acid) 2.4 mMol/L (0.4-2.0)
[2025-05-10] MEDS: PIPER/TAZO 3.375 GM PREMIX 3.375 GM/50 ML BAG IV (14:22)
[2025-05-10 14:26] VITALS: BP 129/78; PULSE 99; RESP 16; RESP 97; O2SAT 97
--- NOTE | 2025-05-10 14:35 | PC.NURSE ---
PATIENT LACTIC ACID 2.4, DR. VARGAS MADE AWARE. PER MD GIVE ANOTHER 1 LITER OF NORMAL SALINE.
[2025-05-10] MEDS: SODIUM CHLORIDE 0.9% 1000 ML 1,000 ML 999 ML IV (14:45)
[2025-05-10 16:12] VITALS: BP 137/71; PULSE 94; RESP 13; TEMP 36.9; O2SAT 98
[2025-05-10 16:25] LABS: Lactate (Lactic Acid) 2.2 mMol/L (0.4-2.0)
--- NOTE | 2025-05-10 16:28 | ESHP_ITS ---
<Statement entered by Casa Merchant MD - 05/12/25 12:41> I reviewed above note and agree with findings and plans. I have also personally examined the patient with medicine team and went over assessment and plan with medical team including grinder set up operator internal and resident physician. <Statement entered by Patrice Lynch MD - 05/10/25 22:45> Patient seen and examined at bedside. I discussed and supervised with the grinder set up operator internal physician who took care of this patient. I personally saw and examined the patient. I agree with most of the assessment and plan. Patient presented with fatigue, weakness, abdominal pain, and melena for two days. History of previous GI bleed due to ulcers. Anemic on presentation, Hg 8.8. Will closely monitor need for transfusions. Dr. Alanis on board, patient likely to undergo EGD. Protonix, sucralfate. Started 25 Lantus, SSI for insulin- dependant DM. Plan of care discussed with attending Dr. Merchant. Patrice Lynch MD PGY-2 Documentation for date of: 05/10/25 HPI History of Present Illness Chief complaint: Weakness History of present illness: Mr. Ceja is a 60M with history of upper GI bleed secondary to duodenal ulcer, HTN, DM2, HLD, hypothyroidism, BPH, diverticulosis, presents for LLQ abdominal pain and generalized weakness that started 2 days ago. Pt reports that he had a few episodes of non-bloody, bilious vomiting leading up to today's visit, but denies bloody diarrhea, dizziness, syncope, shortness of breathe, chest pain, of coffe-ground color appearance of vomit. He also noted since two days ago, he started having black and tarry stools. The LLQ abdomen pain is non reproducible upon palpation, constant, and nonradiating. He stated the abdomen pain this time is different from the pain he had last time on 02/24 when he had an upper GI bleed. Pt does have bruises localized to the posterior side of his right lower extremity, which he attributes to a steroid injection he received for his right knee. Upon chart review, pt was seen in the ER on 02/24/25 for similar complaint. 2 units of blood were transfused due to low Hgb. A 2.5cm ulcer at the level of the pyloric channel going into the duodenal bulb without bleeding was noted on the EGD performed on 02/24/25. Biopsy was taken for concern for underlying malignancy, which was positive for chronic inactive gastritis, but negative for H. pylori, malignancy, metaplasia, or dysplaisa according to path report on 02/24/25. On 02/25/25, a rapid response were called to the pt for hypotension 4 pRBC, 1 FFP, 1 platelets transfused. Emergent EGD on 02/25 performed for dennise bleeding, the ulcer was identified again and this area was cauterized and 3 endoclips were applied. GI specialist recommended the patient to be transferred to higher level of care for IR embolization of the gastric-duodenal artery. Pt was transferred to [facility]. At [facility] CTA was obtained and showed no evidence of active bleeding, IR consulted for embolization was deemed unwarranted. Pt was discharged on 03/03 with PPI and follow outpt with GI. Pt was admitted today for upper GI bleed. ED Course In the ED, Na 137, K 3.9, Cl 103, BUN 26, Cr 0.9, Lactate 2.4, AST 16, ALT 24, ALP 77, Hgb 11.3, Hct 35.4. WBC 19.8. CT abd/pelvis shows significant mucosal thickening involving the stomach and perinephric stranding. CXR unremarkable. FOBT was reported negative by nursing staff. 1L of NaCl, pantoprazole 40mg x 1, and Zosyn 3.375g was given in the ER. Repeat lactate upon admission is 2.2 with Hgb of 8.8. ROS * Constitutional: NAD, a/o x 3, denies fever/chills. * GI: Denies nausea, vomiting. * CV: Denies chest pain or palpitations. * Resp: Denies SOB or cough. * : Denies dysuria, CVA tenderness, suprapubic tenderness. * Neuro: Denies dizziness, no focal deficits. Past Medical History * Upper GI Bleed secondary to duodenal ulcers (02/24/25) * HTN * HLD * DM2 * Hypothyroidism * BPH Social History * Lives at home, independent baseline. * Denies alcohol, smoking, or drug use. Surgical History * EGD with 3 endoclips (02/25/25) * Inguinal hernia * Cataract Allergies * NKDA Home Meds * Atorvastatin 40mg QD * Omeprazole 40mg QD * HCTZ 25mg QD * Finasteride 5mg QD * Odansetron 4mg TID PRN * Tamsulosin 0.4mg QD * Metformin 100mg BID * Insulin glargine 35U SQ QPM Past Medical History Past Medical History CARDIAC: Positive Cardiac Disorders (HIGH BP), Hypercholesterolemia, Edema and Hypertension RESPIRATORY: Negative Chronic Obstructive Pulmonary Disease (COPD) GASTROINTESTINAL: Positive Gastrointestinal Disorders, Gastrointestinal Bleed and Ulcer MUSCULOSKELETAL: Positive Arthritis ENT: Positive Cataracts ENDOCRINE: Positive Endocrine Disorders and Diabetes Mellitus Type 2 HEMATOLOGIC: Positive Blood Disorders and Anemia PSYCHO/SOCIAL: Positive Anxiety Family History FAMILY HISTORY: Positive Family Cancer and Family Surgery Surgical History SURGICAL: Positive Ear Surgery, Eye Surgery and Abdominal Surgery Social History SMOKING STATUS: Never smoker SUBSTANCE USE: does not use Exam Vital Signs Temp Pulse Resp BP Pulse Ox O2 Del Method 98.5 F 94 13 137/71 H 98 Room Air 05/10/25 16:12 05/10/25 16:12 05/10/25 16:12 05/10/25 16:12 05/10/25 16:12 05/10/25 16:12 Narrative Exam General: Well appearing, well nourished, in no distress. Oriented x 3, normal mood and affect . Ambulating without difficulty. Skin: Good turgor, unusual bruising to posterior R lower extremity. Heart: No cardiomegaly or thrills; regular rate and rhythm, no murmur or gallop Lungs: Clear to auscultation and percussion. No rales, wheeze, or rhonchi Abdomen: LLQ pain, no mass or hernia. Back: Spine normal without deformity or tenderness, no CVA tenderness Extremities: No amputations or deformities, cyanosis, edema or varicosities, peripheral pulses intact Results: Labs 05/10/25 09:47 05/10/25 09:47 Labs: Short CBC 05/10/25 Range/Units 09:47 WBC 19.8 H (3.8-10.6) Thou/mm3 Hgb 11.3 L (13.5-16.0) g/dL Hct 35.4 L (41.0-53.0) % Plt Count 412 D (140-440) Thou/mm3 BMP 05/10/25 09:47 Sodium 137 Potassium 3.9 Chloride 103 Carbon Dioxide 25.2 BUN 26 H Creatinine 0.9 Glucose 230 H Calcium 10.2 Cardiac Enzymes 05/10/25 Range/Units 09:47 Troponin I < 0.020 (0.0-0.045) ng/mL Liver Function 05/10/25 Range/Units 09:47 Total Bilirubin 0.4 (0.3-1.2) mg/dL AST 16 (0-34) U/L ALT 24 (10-49) U/L Alkaline Phosphatase 77 (46-116) U/L Albumin 4.3 (3.4-4.8) gm/dL Urine 05/10/25 Range/Units 10:03 Urine Color Lt-Yellow (Lt Yel-Yel) Urine Clarity Clear (Clear/Hazy) Urine pH 7.0 (5.0-7.0) Ur Specific [place] 1.024 (1.001-1.035) Urine Protein Negative (Neg - Trace) Urine Glucose (UA) Trace (Negative) Quality Measures Quality Measures VTE prophylaxis Medications Home Medications and Allergies Home Medications ?Medication ?Instructions ?Recorded ?Confirmed ?Type atorvastatin 40 mg tablet 40 mg PO QPM 12/29/18 History hydrochlorothiazide 12.5 mg tablet 12.5 mg PO QDAY 03/02/25 History Held on 03/03/25. Instructions: Hold until you see your primary doctor metformin 1,000 mg tablet 1,000 mg PO BID 11/25/19 History benazepril 40 mg tablet 40 mg PO DAILY 11/16/2402/09 History insulin glargine 100 unit/mL (3 35 unit subcut QPM 03/02/25 History mL) subcutaneous pen (Basaglar KwikPen U-100 Insulin) amlodipine 5 mg tablet 5 mg PO DAILY 03/02/2503/02 History Held on 03/03/25. Instructions: Hold until you see PCP ondansetron 4 mg disintegrating 4 mg PO TID PRN nausea and vomiting 03/02/25 03/02/25 History tablet Allergies Allergy/AdvReac Type Severity Reaction Status Date / Time No Known Allergies Allergy Verified 05/10/25 09:14 Visit Medications Acetaminophen (Acetaminophen 325 Mg Tablet) 650 mg PO Q6H PRN PRN Reason: PAIN SCALE 1-3 (mild Stop: 06/09/25 15:56 Hydrocodone Bitart/Acetaminophen (Hydrocodone/Apap 5/325 Tablet) 1 tab PO Q4HR PRN PRN Reason: PAIN SCALE 4-10(Mod-Sev Stop: 05/15/25 16:02 Dextrose (Dextrose 50%-Water Inj 50 Ml Syringe) 25 ml IV Q15MIN PRN PRN Reason: BG 50-70 responsive npo pt Stop: 06/09/25 16:15 Dextrose (Dextrose 50%-Water Inj 50 Ml Syringe) 50 ml IV Q15MIN PRN PRN Reason: BG <50 OR BG <70 & pt unresponsive Stop: 06/09/25 16:15 Glucagon (Glucagon Inj 1 Mg Vial) 1 mg IM Q15MIN PRN PRN Reason: BG <70, and no IV access Sodium Chloride (Ns) 1,000 mls @ 100 mls/hr IV .Q10H ONE Stop: 05/10/25 21:27 Last Admin: 05/10/25 12:00 Dose: 100 mls/hr Insulin Glargine (Insulin Glargine (Lantus) 5 Unit/0.05 Ml (Per 5 Units)) 25 unit SC QPM EL Stop: 06/09/25 20:59 Insulin Human Lispro (Insulin Lispro (Admelog) 1 Unit/0.01 Ml Unit) 0 unit SC Q6HR EL; Protocol Stop: 06/09/25 17:59 Ondansetron HCl (Ondansetron Inj 2 Mg/Ml Inj 2 Ml) 4 mg IVP Q6HR PRN; Protocol PRN Reason: NAUSEA OR VOMITING Stop: 06/09/25 16:25 Pantoprazole Sodium (Pantoprazole Inj 40 Mg Vial) 40 mg IVP BID EL Stop: 06/09/25 20:59 Sennosides (Senna Tablet) 1 tab PO BID PRN; Protocol PRN Reason: CONSTIPATION Stop: 06/09/25 15:56 Sucralfate (Sucralfate 1 Gm Tablet) 1 gm PO QID EL Stop: 06/09/25 16:59 Discontinued Medications Piperacillin/Tazobactam/Dextrose (Zosyn) 3.375 gm in 50 mls @ 100 mls/hr IV X1 ONE Stop: 05/10/25 14:30 Last Infusion: 05/10/25 14:52 Dose: Infused Sodium Chloride (Ns) 1,000 mls @ 999 mls/hr IV .Q1H1M ONE Stop: 05/10/25 15:35 Last Infusion: 05/10/25 15:46 Dose: Infused Morphine Sulfate (Morphine Sulf Inj 10 Mg/Ml Vial) 2 mg IVP X1 ONE Stop: 05/10/25 11:47 Last Admin: 05/10/25 11:58 Dose: 2 mg Ondansetron HCl (Ondansetron Inj 2 Mg/Ml Inj 2 Ml) 4 mg IVP X1 ONE; Protocol Stop: 05/10/25 11:47 Last Admin: 05/10/25 11:58 Dose: 4 mg Ondansetron HCl (Ondansetron Odt 4 Mg Tabrap) 4 mg PO Q8HR PRN; Protocol PRN Reason: NAUSEA OR VOMITING Stop: 06/09/25 16:06 Pantoprazole Sodium (Pantoprazole Inj 40 Mg Vial) 40 mg IVP X1 ONE Stop: 05/10/25 14:02 Last Admin: 05/10/25 14:22 Dose: 40 mg Assessment & Plan Plan 60M with history of upper GI bleed s/p EGD with 3 bandings, HTN, DM2, HLD, hypothyroidism, BPH, diverticulosis admitted for concern of another episode of upper GI bleed. #Upper GI Bleed #History of duodenal ulcer s/p EGD with bandings Pt has significant history of upper GI bleed. Admitted recently on 02/24/25 for anemia, EGD showed duodenal ulcers. 4pRBC, 1 FFP, 1 platelet was transfused due to hemodynamic stability overnight on 02/25/25. Pt was transfered to [facility] for IR embolization of the gastric-duodenal artery per GI recommendation. At [facility] CTA was obtained and showed no evidence of active bleeding, IR consulted for embolization was deemed unwarranted. 05/10 : CXR unremarkable. CT A/P showed significant mucosal thickening involving the stomach and perinephric stranding Dx: - EGD - May consider another CTA if pt hemoglobin decrease overnight. Plan: - Sucralfate 1gm PO QID - Pantoprazole 40mg IVP BID - Monitor CBC, Blood transfusion if Hgb < 7 - Consult GI, appreciates recs - NPO after midnight - Monitor VS closely #Acute on Chronic Anemia #Acute blood loss, likely due to hemodilation Initial Hgb 11.3, repeat Hgb Dx: - Daily CBC - Trend H/H Plan: - blood transfusion if Hgb < 7 - Type and Screen ordered - Pending reticulocyte count, iron panels, ferritin. #Leukocytosis Initial WBC 19.8. Does not meet SIRS criteria. Likely due to steroid injection pt received to his R knee vs infectious origin. Dx: - Pending Blood Culture Plan: - Daily CBC - Watch for signs of fever > 100.3F #DM2 03/04/25 A1C 7.2%. Dx: - Pending morning A1C Plan: - Diet and lifestyle modification. - Insulin sliding scale - On Insulin Glargine 25U - Hold home med Insulin Glargine 35U, metformin 1000mg PO BID - Outpt PCP followup #Electrolyte Abnormalities #Hypophophatemia #Hypomagnemia Initial Mag 0.9, Phos 2.3 Dx: - daily chem, mag, and phos Plan: - Keep Mag > 2, K > 4, replete as needed. Dispo: [facility] DVT prophylaxis: SCDs GI prophylaxis: Protonix 40 Diet: NPO after midnight Lines: Peripheral IV Code status: Full code Case discussed with my senior resident Dr. Lynch Case discussed with my attending Dr. Shonda Henderson, DO PGY 1
[2025-05-10 16:37] LABS: Basophils # (Auto) 0.1 Thou/mm3 (0.0-0.2); Basophils % (Auto) 0 % (0-2.5); Eosinophils # (Auto) 0.1 Thou/mm3 (0.0-0.5); Eosinophils % (Auto) 1 % (0-10); Hematocrit 27.6 % (41.0-53.0); Immature Granulocytes Auto 1.14 Thou/mm3 (0.00-0.00); Lymphocytes # (Auto) 1.1 Thou/mm3 (1.0-4.8); Lymphocytes % (Auto) 7 % (10-50); Mean Corpuscular HGB Conc 31.9 g/dl (31.0-37.0); Mean Corpuscular Hemoglobin 29.2 pg (25.0-35.0); Mean Corpuscular Volume 92 fL (80-100); Monocytes # (Auto) 1.1 Thou/mm3 (0.0-0.8); Monocytes % (Auto) 7 % (0-12); Neutrophils # (Auto) 12.7 Thou/mm3 (1.8-7.7); Neutrophils % (Auto) 78 % (37-80); Nucleated Red Blood Cell # 0.04 Thou/mm3 (0.00-0.00); Nucleated Red Blood Cell % 0 /100 WBC (0); Platelet Count 296 Thou/mm3 (140-440); RDW Standard Deviation 64.8 fL (35.1-43.9); Red Blood Count 3.01 Miln/mm3 (4.50-5.90); White Blood Count 16.2 Thou/mm3 (3.8-10.6)
[2025-05-10 16:41] LABS: Hemoglobin 8.8 g/dL (13.5-16.0)
[2025-05-10 17:18] LABS: Reflex Lactate? Y
[2025-05-10] MEDS: SUCRALFATE 1 GM TABLET PO ×2 (17:21→21:57)
--- NOTE | 2025-05-10 17:50 | PC.NURSE ---
REPORT CALLED TO DESTINI ROBERTS.
--- NOTE | 2025-05-10 17:57 | PC.CC ---
Patient is a 60 year-old male who presents to the hospital for Upper GI Bleed. ASWPeggy made [id number] contact with patient. ASW introduced self, role, and reason for visit.?Patient appeared alert and oriented to self, location, and situation. At bedside was patient's , Carie Eduardo , patient provided verbal consent for the to remain in the room during assessment. ASW discussed limits of confidentiality. ?Patient was pleasant and engaged in initial assessment. Patient confirmed his information on demographics and reports to living at home with . Per patient, his medical decision maker in the event he is unable to make his medical decisions is his , Carie. 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 At home patient ambulates with a cane and is able to complete his own ADLs. Patient does not require any DME or oxygen at home. Patient's primary provider is Jorge Corado and pharmacy of choice is [facility]. Upon discharge the patient plans to return home. administrative services manager to follow-up with any discharge needs.
[2025-05-10 18:08] LABS: Phosphorous 2.3 mg/dL (2.4-5.1)
[2025-05-10 18:11] LABS: Immature Reticulocyte Fraction 32.8 % (2.3-13.4); Magnesium 0.9 mg/dL (1.6-2.6); Reticulocyte % (Auto) 5.6 % (0.5-1.5); Reticulocyte Absolute Auto 167.9 Biln/L (25.0-75.0); Reticulocyte Hgb Content 35.1 pg (28.0-35.0)
[2025-05-10 18:37] LABS: Ferritin 272 ng/mL (10.5-307.3); Iron 27 mcg/dL (65-175); Percent Iron Saturation 11 % (20-55); Total Iron Binding Capacity 243 mcg/dL (250-425); Unsaturated Iron Binding 216 (225-295)
[2025-05-10] MEDS: Magnesium Sulfate 4 GM Ivpb 4 GM/50 ML BAG IV ×2 (19:12→23:16)
[2025-05-10 19:23] LABS: Reflex Lactate? Y
[2025-05-10] MEDS: ACETAMINOPHEN 325 MG TABLET 650 MG PO (19:56)
[2025-05-10 20:00] VITALS: BP 123/72; PULSE 94; RESP 18; TEMP 36.4; O2SAT 99
[2025-05-10] MEDS: POT PHOS 15 mMol in NS 250 ML 15 MMOL/250 ML BAG 62.5 MMOL IV (20:08)
--- NOTE | 2025-05-10 20:37 | PD.IMCONS ---
HPI Data of Consult Requesting Physician: Casa Merchant MD Primary Care Provider: Jorge Corado PA-C Consult Narrative Reason for consult: Leukocytosis, abnormal CTAP History of present illness: 60 years old male consulted at the request of the ER physician for abdominal pain and leukocytosis with a drop in hemoglobin hematocrit WBC count was 19.8 with a hemoglobin hematocrit 11.3 and 33.4 which subsequently count down to 8.[address] scan of the abdomen pelvis showed thickening of the gastric mucosa cc:: cc: Casa Merchant MD Review of Systems Review of Systems Systems Reviewed: All systems reviewed, normal except as documented Past Medical History Surgical History OTHER SURGICAL HX: Hyperlipidemia hypothyroidism BPH Meds Home Medications and Allergies Home Medications ?Medication ?Instructions ?Recorded ?Confirmed ?Type atorvastatin 40 mg tablet 40 mg PO QPM 12/29/18 05/10/25 History hydrochlorothiazide 12.5 mg tablet 12.5 mg PO QDAY 11/25/19 03/02/25 History Held on 03/03/25. Instructions: Hold until you see your primary doctor metformin 1,000 mg tablet 1,000 mg PO BID 11/25/19 05/10/25 History benazepril 40 mg tablet 40 mg PO DAILY 11/16/24 05/10/25 History insulin glargine 100 unit/mL (3 35 unit subcut QPM 02/24/25 05/10/25 History mL) subcutaneous pen (Basaglar KwikPen U-100 Insulin) amlodipine 5 mg tablet 5 mg PO DAILY 03/02/25 05/10/25 History Held on 03/03/25. Instructions: Hold until you see PCP ondansetron 4 mg disintegrating 4 mg PO TID PRN nausea and vomiting 03/02/25 03/02/25 History tablet Allergies Allergy/AdvReac Type Severity Reaction Status Date / Time No Known Allergies Allergy Verified 05/10/25 09:14 Exam Vital Signs Temp Pulse Resp BP Pulse Ox O2 Del Method 97.6 F 94 18 123/72 99 Room Air 05/10/25 20:00 05/10/25 20:00 05/10/25 20:00 05/10/25 20:00 05/10/25 20:00 05/10/25 20:00 Constitutional Comments: Oriented Routine Respiratory Exam Comments: Normal to auscultation Routine Abdominal Exam Comments: Soft nontender Results Labs 05/10/25 16:20 05/10/25 09:47 Labs: Short CBC 05/10/25 05/10/25 Range/Units 09:47 16:20 WBC 19.8 H 16.2 H (3.8-10.6) Thou/mm3 Hgb 11.3 L 8.8 L D (13.5-16.0) g/dL Hct 35.4 L 27.6 L (41.0-53.0) % Plt Count 412 D 296 D (140-440) Thou/mm3 BMP 05/10/25 09:47 Sodium 137 Potassium 3.9 Chloride 103 Carbon Dioxide 25.2 BUN 26 H Creatinine 0.9 Glucose 230 H Calcium 10.2 Cardiac Enzymes 05/10/25 Range/Units 09:47 Troponin I < 0.020 (0.0-0.045) ng/mL Liver Function 05/10/25 Range/Units 09:47 Total Bilirubin 0.4 (0.3-1.2) mg/dL AST 16 (0-34) U/L ALT 24 (10-49) U/L Alkaline Phosphatase 77 (46-116) U/L Albumin 4.3 (3.4-4.8) gm/dL Urine 05/10/25 Range/Units 10:03 Urine Color Lt-Yellow (Lt Yel-Yel) Urine Clarity Clear (Clear/Hazy) Urine pH 7.0 (5.0-7.0) Ur Specific [place] 1.024 (1.001-1.035) Urine Protein Negative (Neg - Trace) Urine Glucose (UA) Trace (Negative) Assessment and Plan Additional Assessment & Plan Additional Plan: # Leukocytosis # Abnormal CT scan of the abdomen and pelvis # Posthemorrhagic anemia Plan Patient had an endoscopy done on 02/25/2025 when he presented with a hemoglobin 6.1 g at that time he had a bleeding ulcer which was electrocoagulated with endoscopic intervention He might have ongoing bleeding from that site Consent obtained for fiberoptic esophagogastroduodenoscopy with possible biopsy possible therapeutic intervention under intravenous moderate sedation which has been scheduled for tomorrow IV Protonix N.p.o. midnight tonight
[2025-05-10 21:03] VITALS: PULSE 110
[2025-05-10 23:10] LABS: Lactic Acid, 3 HR 1.7 mMol/L (0.4-2.0)
[2025-05-10 23:12] LABS: Hematocrit 26.4 % (41.0-53.0); Hemoglobin 8.3 g/dL (13.5-16.0)
[2025-05-11] VITALS (26 sets, daily range): BP systolic 111–150; BP diastolic 62–81; PULSE 82–101; RESP 15–97; TEMP 36.2–36.7; O2SAT 10–100; BMI 27.7
[2025-05-11] MEDS: ACETAMINOPHEN 325 MG TABLET 650 MG PO (03:28)
[2025-05-11] MEDS: SUCRALFATE 1 GM TABLET PO ×3 (05:28→21:13)
[2025-05-11 06:29] LABS: Basophils # (Auto) 0.1 Thou/mm3 (0.0-0.2); Basophils % (Auto) 1 % (0-2.5); Eosinophils # (Auto) 0.1 Thou/mm3 (0.0-0.5); Eosinophils % (Auto) 1 % (0-10); Hematocrit 26.4 % (41.0-53.0); Immature Granulocytes Auto 1.06 Thou/mm3 (0.00-0.00); Lymphocytes # (Auto) 1.4 Thou/mm3 (1.0-4.8); Lymphocytes % (Auto) 10 % (10-50); Mean Corpuscular HGB Conc 31.8 g/dl (31.0-37.0); Mean Corpuscular Hemoglobin 29.0 pg (25.0-35.0); Mean Corpuscular Volume 91 fL (80-100); Monocytes # (Auto) 0.9 Thou/mm3 (0.0-0.8); Monocytes % (Auto) 7 % (0-12); Neutrophils # (Auto) 10.3 Thou/mm3 (1.8-7.7); Neutrophils % (Auto) 75 % (37-80); Nucleated Red Blood Cell # 0.06 Thou/mm3 (0.00-0.00); Nucleated Red Blood Cell % 0 /100 WBC (0); Platelet Count 301 Thou/mm3 (140-440); RDW Standard Deviation 66.3 fL (35.1-43.9); Red Blood Count 2.90 Miln/mm3 (4.50-5.90); White Blood Count 13.8 Thou/mm3 (3.8-10.6)
[2025-05-11 06:37] LABS: Hemoglobin 8.4 g/dL (13.5-16.0)
[2025-05-11 06:48] LABS: INR 0.9 (0.9-1.3); Partial Thromboplastin Time 24.5 Seconds (22.0-36.0); Prothrombin Time 10.1 Seconds (9.0-12.2)
[2025-05-11 07:10] LABS: Alanine Aminotransferase 17 U/L (10-49); Albumin, Serum 3.5 gm/dL (3.4-4.8); Albumin/Globulin Ratio 1.8 (1.2-2.2); Alkaline Phosphatase 58 U/L (46-116); Anion Gap 12 (7-16); Aspartate Amino Transferase 12 U/L (0-34); BUN/Creatinine Ratio 35 Ratio (12-20); Bilirubin,Total 0.3 mg/dL (0.3-1.2); Blood Urea Nitrogen 21 mg/dL (9-23); Calcium 8.4 mg/dL (8.3-10.6); Calcium (Corrected) 8.8 mg/dL (8.5-10.1); Carbon Dioxide 22.6 mMol/L (20.0-31.0); Chloride 106 mMol/L (98-107); Creatinine (Component) 0.6 mg/dL (0.6-1.3); Estimated Creatinine Clearance 100.7 mL/min (>60); Globulin 1.9 gm/dL (2.3-3.5); Glucose 177 mg/dL (74-106); Magnesium 2.8 mg/dL (1.6-2.6); Osmolality,Calculated 288 (275-295); Phosphorous 4.5 mg/dL (2.4-5.1); Potassium 3.5 mMol/L (3.4-5.1); Sodium 141 mMol/L (136-145); Total Protein 5.4 gm/dL (5.7-8.2); eGFR > 60 See Note
[2025-05-11 07:14] LABS: Glucose Estimated Average 137 mg/dL (80-131); Hemoglobin A1C 6.4 % Hgb (4.8-6.0)
[2025-05-11] MEDS: POTASSIUM CHL 10 mEq IVPB 10 MEQ/100 ML BAG 100 MEQ IV ×4 (08:01→12:49)
--- NOTE | 2025-05-11 09:10 | PC.SS ---
SS follow up note; Patient will have an endoscopy today with Dr. Alanis. Patient will return home when medically cleared.
[2025-05-11] MEDS: FERRIC SOD GLUC INJ 125 MG in SODIUM CHLORIDE 0.9% 100 ML 110 MG IV (11:19)
[2025-05-11] MEDS: INSULIN LISPRO (AdmeLOG) 1 UNIT/0.01 ML UNIT SC (12:20)
[2025-05-11] MEDS: HYDROcodone/APAP 5/325 TABLET 1 TAB PO (12:53)
--- NOTE | 2025-05-11 13:58 | ESPR_ITS ---
<Statement entered by Casa Merchant MD - 05/14/25 16:11> I reviewed above note and agree with findings and plans. I have also personally examined the patient with medicine team and went over assessment and plan with medical team including analysis intern and resident physician. <Statement entered by Anton Ceja MD - 05/11/25 16:33> Patient was examined and case was reviewed with team including attending physician. Note reviewed, I agree with most of its contents and agree with the patient's care. Patient seen today at the bedside found awake, alert, orientedx3. No overnight events reported. Vitals and labs reviewed. Patient did endorse black tarry bowel movement today. Patient is currently pending upper endoscopy by gastroenterology services. Case discussed with my attending Dr. Shonda Ceja MD PGY-2 Documentation for date of: 05/11/25 Subjective Subjective Interval history: No overnight events. Evaluated at bedside. Hgb stable at 8.4 this morning. Reported 1 black-tarry bowel movement last night. Denies n/v or bloody stool. Plan for EGD later today. Exam Vital Signs Temp Pulse Resp BP Pulse Ox O2 Del Method 97.2 F 82 17 126/71 96 Room Air 05/11/25 12:00 05/11/25 12:49 05/11/25 12:00 05/11/25 12:00 05/11/25 12:00 05/11/25 12:00 Narrative Exam General: Well appearing, well nourished, in no distress. Oriented x 3, normal mood and affect. Ambulating without difficulty. Skin: Good turgor, unusual bruising to posterior R lower extremity. Heart: No cardiomegaly or thrills; regular rate and rhythm, no murmur or gallop. Lungs: Clear to auscultation and percussion. No rales, wheeze, or rhonchi Abdomen: LLQ pain, no mass or hernia. Back: Spine normal without deformity or tenderness, no CVA tenderness Extremities: No amputations or deformities, cyanosis, edema or varicosities, peripheral pulses intact. Objective Labs 05/11/25 05:37 05/11/25 05:37 Labs: Laboratory Results - last 24 hr 05/10/25 05/10/25 05/10/25 14:14 16:20 22:49 WBC 16.2 H RBC 3.01 L Hgb 8.8 L D 8.3 L Hct 27.6 L 26.4 L MCV 92 MCH 29.2 MCHC 31.9 RDW Std Deviation 64.8 H Plt Count 296 D Neut % (Auto) 78 Lymph % (Auto) 7 L [place] % (Auto) 7 Eos % (Auto) 1 Baso % (Auto) 0 Neut # (Auto) 12.7 H Lymph # (Auto) 1.1 [place] # (Auto) 1.1 H Eos # (Auto) 0.1 Baso # (Auto) 0.1 Immature Gran # (Auto) 1.14 H Absolute Nucleated RBC 0.04 H Immature Gran % 7 H Nucleated RBC % 0 Retic Count (auto) 5.6 H Absolute Retic 167.9 H Immature Retic Fraction 32.8 H Retic Hgb Content CHr 35.1 H PT INR APTT Sodium Potassium Chloride Carbon Dioxide Anion Gap BUN Creatinine Estim Creat Clear Calc eGFR BUN/Creatinine Ratio Glucose Estimated Ave Glu mg/dL Hemoglobin A1c Calculated Osmolality Lactic Acid 2.4 H 2.2 H 1.7 Calcium Corrected Calcium Phosphorus 2.3 L Magnesium 0.9 L* Iron 27 L TIBC 243 L Iron Saturation 11 L Unsat Iron Binding 216 L Ferritin 272 Total Bilirubin AST ALT Alkaline Phosphatase Total Protein Albumin Globulin Albumin/Globulin Ratio Blood Type B Positive Antibody Screen NEGATIVE Blood Bank Wristband ID Yes 05/11/25 05:37 WBC 13.8 H RBC 2.90 L Hgb 8.4 L Hct 26.4 L MCV 91 MCH 29.0 MCHC 31.8 RDW Std Deviation 66.3 H Plt Count 301 Neut % (Auto) 75 Lymph % (Auto) 10 [place] % (Auto) 7 Eos % (Auto) 1 Baso % (Auto) 1 Neut # (Auto) 10.3 H Lymph # (Auto) 1.4 [place] # (Auto) 0.9 H Eos # (Auto) 0.1 Baso # (Auto) 0.1 Immature Gran # (Auto) 1.06 H Absolute Nucleated RBC 0.06 H Immature Gran % 8 H Nucleated RBC % 0 Retic Count (auto) Absolute Retic Immature Retic Fraction Retic Hgb Content CHr PT 10.1 INR 0.9 APTT 24.5 Sodium 141 Potassium 3.5 Chloride 106 Carbon Dioxide 22.6 Anion Gap 12 BUN 21 Creatinine 0.6 Estim Creat Clear Calc 100.7 eGFR > 60 BUN/Creatinine Ratio 35 H Glucose [address] Glu mg/dL 137 H Hemoglobin A1c 6.4 H Calculated Osmolality 288 Lactic Acid Calcium 8.4 D Corrected Calcium 8.8 Phosphorus 4.5 Magnesium 2.8 H Iron TIBC Iron Saturation Unsat Iron Binding Ferritin Total Bilirubin 0.3 AST 12 ALT 17 Alkaline Phosphatase 58 D Total Protein 5.4 L Albumin 3.5 D Globulin 1.9 L Albumin/Globulin Ratio 1.8 Blood Type Antibody Screen Blood Bank Wristband ID Quality Measures Quality Measures VTE prophylaxis Assessment & Plan Assessment Current Active Medications: Generic Name Dose Route Start Last Admin Trade Name Freq PRN Reason Stop Dose Admin Acetaminophen 650 mg 05/10/25 15:57 05/11/25 03:28 Acetaminophen 325 Mg Tablet PO 06/09/25 15:56 650 mg Q6H PRN Administration PAIN SCALE 1-3 (mild Hydrocodone Bitart/Acetaminophen 1 tab 05/10/25 16:03 05/11/25 12:53 Hydrocodone/Apap 5/325 Tablet PO 05/15/25 16:02 1 tab Q4HR PRN Administration PAIN SCALE 4-10(Mod-Sev Dextrose 25 ml 05/10/25 16:16 Dextrose 50%-Water Inj 50 Ml Syringe IV 06/09/25 16:15 Q15MIN PRN BG 50-70 responsive npo pt Dextrose 50 ml 05/10/25 16:16 Dextrose 50%-Water Inj 50 Ml Syringe IV 06/09/25 16:15 Q15MIN PRN BG <50 OR BG <70 & pt unresponsive Glucagon 1 mg 05/10/25 16:16 Glucagon Inj 1 Mg Vial IM Q15MIN PRN BG <70, and no IV access Ferric Sodium Gluconate 125 mg 110 mls @ 110 mls/hr 05/11/25 10:45 05/11/25 11:19 / Sodium Chloride IV 06/10/25 10:44 110 mls/hr QDAY EL Administration Insulin Glargine 25 unit 05/10/25 21:00 05/10/25 22:00 Insulin Glargine (Lantus) 5 Unit/0.05 Ml (Per 5 Units) SC 06/09/25 20:59 Not Given QPM EL Insulin Human Lispro 0 unit 05/10/25 18:00 05/11/25 12:20 Insulin Lispro (Admelog) 1 Unit/0.01 Ml Unit SC 06/09/25 17:59 2 unit Q6HR EL Administration Protocol Ondansetron HCl 4 mg 05/10/25 16:26 Ondansetron Inj 2 Mg/Ml Inj 2 Ml IVP 06/09/25 16:25 Q6HR PRN NAUSEA OR VOMITING Protocol Pantoprazole Sodium 40 mg 05/10/25 21:00 05/11/25 08:04 Pantoprazole Inj 40 Mg Vial IVP 06/09/25 20:59 40 mg BID EL Administration Sennosides 1 tab 05/10/25 15:57 Senna Tablet PO 06/09/25 15:56 BID PRN CONSTIPATION Protocol Sucralfate 1 gm 05/10/25 17:00 05/11/25 12:20 Sucralfate 1 Gm Tablet PO 06/09/25 16:59 1 gm QID EL Administration Plan 60M with history of upper GI bleed s/p EGD with 3 bandings, HTN, DM2, HLD, hypothyroidism, BPH, diverticulosis admitted for concern of another episode of upper GI bleed. #Upper GI Bleed #History of duodenal ulcer s/p EGD with bandings Pt has significant history of upper GI bleed. Admitted recently on 02/24/25 for anemia, EGD showed duodenal ulcers. 4pRBC, 1 FFP, 1 platelet was transfused due to hemodynamic stability overnight on 02/25/25. Pt was transfered to [facility] for IR embolization of the gastric-duodenal artery per GI recommendation. At [facility] CTA was obtained and showed no evidence of active bleeding, IR consulted for embolization was deemed unwarranted. 05/10: CXR unremarkable. CT A/P showed significant mucosal thickening involving the stomach and perinephric stranding 05/11: Hgb stable at 8.4. VS stable Dx: - EGD - May consider another CTA if pt hemoglobin decrease overnight. Plan: - Sucralfate 1gm PO QID - Pantoprazole 40mg IVP BID - Monitor CBC, Blood transfusion if Hgb < 7 - Consult GI, plan for EGD today. - NPO after midnight - Monitor VS closely #Acute on Chronic Anemia #Acute blood loss, likely due to hemodilation Initial Hgb 11.3, repeat Hgb 8.8 05/10. Retic count high 5.6. Iron low 27. Iron sat low 11%. Ferritin 272. 8/1: Hgb stable at 8.4. Dx: - Daily CBC - Trend H/H - Iron panel, ferritin, rectic count ordered 05/10 Plan: - blood transfusion if Hgb < 7, type and Screen ordered 05/10 - Started IV iron 125mg QD #Leukocytosis - downtrending Initial WBC 19.8. Does not meet SIRS criteria. Likely due to steroid injection pt received to his R knee vs infectious origin. Dx: - Blood Culture NG @ 24H Plan: - Daily CBC - Watch for signs of fever > 100.3F #Insulin dependent DM 2 03/04/25 A1C 7.2%. Dx: - 05/11 A1C 6.4%, within goal of < 7% Plan: - Diet and lifestyle modification. - Insulin sliding scale - On Insulin Glargine 25U - Hold home med Insulin Glargine 35U, metformin 1000mg PO BID - Outpt PCP followup #Electrolyte Abnormalities - resolved #Hypophophatemia - resolved #Hypomagnemia -resolved Initial Mag 0.9, Phos 2.3 Dx: - daily chem, mag, and phos Plan: - Keep Mag > 2, K > 4, replete as needed. Dispo: [facility] DVT prophylaxis: SCDs GI prophylaxis: Protonix 40 Diet: NPO after midnight Lines: Peripheral IV Code status: Full code Case discussed with my senior resident Dr. Terrance Ceja Case discussed with my attending Dr. Shonda Henderson, DO PGY 1
--- NOTE | 2025-05-11 17:12 | PC.NURSE ---
pt was taken to endo at 1713
[2025-05-11] MEDS: SODIUM CHLORIDE 0.9% 500 ML 500 ML 20 ML IV (17:55)
--- NOTE | 2025-05-11 18:17 | SUR.PHASEI ---
1816: pt recieved from OR via [facility]. received report from DESTINI Wiggins. pt arousable but drifts back to sleep. no s/s of resp. distress or discomfort. no s/s of pain or discomfort.
--- NOTE | 2025-05-11 18:29 | SUR.PHASEI ---
1829: pt able to drink water without any difficulty.
--- NOTE | 2025-05-11 18:52 | SUR.PHASEI ---
Given report to DESTINI Mcgill.
--- NOTE | 2025-05-11 18:55 | SUR.PHASEI ---
1855: able to ambulate using the bathroom.
--- NOTE | 2025-05-11 18:57 | SUR.PHASEI ---
1857: pt transfer back to room 356 via [facility]. pt alert and oriented. no s/s of resp.distress or discomfort. no s/s of pain or discomfort.
--- NOTE | 2025-05-11 18:57 | SUR.PHASEI ---
usees the bathroom to urinate x1
[2025-05-11] MEDS: INSULIN GLARGINE (Lantus) 5 UNIT/0.05 ML (PER 5 UNITS) 25 UNIT SC (21:15)
--- NOTE | 2025-05-11 23:07 | PC.NURSE ---
called Dr. Lee regarding patient's blood glucose checks from Q6hr to AC & HS since patient now back on a diet. Per Dr will put in orders.
[2025-05-12] VITALS (17 sets, daily range): BP systolic 123–143; BP diastolic 68–83; PULSE 78–101; RESP 14–99; TEMP 36.1–36.9; O2SAT 95–99; BMI 27.5
[2025-05-12] MEDS: HYDROcodone/APAP 5/325 TABLET 1 TAB PO ×2 (04:17→23:50)
--- NOTE | 2025-05-12 05:20 | PC.NURSE ---
Notified Dr. Lee regarding patient blood pressure of 167/94 with heart rate of 70 according to protocol, Dr. Lee also was informed that patient is also scheduled for dialysis today, Dr. Lee okayed, no new orders at this time, care continued.
[2025-05-12 05:29] LABS: Basophils # (Auto) 0.0 Thou/mm3 (0.0-0.2); Basophils % (Auto) 0 % (0-2.5); Eosinophils # (Auto) 0.1 Thou/mm3 (0.0-0.5); Eosinophils % (Auto) 1 % (0-10); Hematocrit 22.5 % (41.0-53.0); Immature Granulocytes Auto 0.56 Thou/mm3 (0.00-0.00); Lymphocytes # (Auto) 1.1 Thou/mm3 (1.0-4.8); Lymphocytes % (Auto) 11 % (10-50); Mean Corpuscular HGB Conc 31.1 g/dl (31.0-37.0); Mean Corpuscular Hemoglobin 28.9 pg (25.0-35.0); Mean Corpuscular Volume 93 fL (80-100); Monocytes # (Auto) 0.8 Thou/mm3 (0.0-0.8); Monocytes % (Auto) 8 % (0-12); Neutrophils # (Auto) 7.3 Thou/mm3 (1.8-7.7); Neutrophils % (Auto) 74 % (37-80); Nucleated Red Blood Cell # 0.05 Thou/mm3 (0.00-0.00); Nucleated Red Blood Cell % 1 /100 WBC (0); Platelet Count 247 Thou/mm3 (140-440); RDW Standard Deviation 67.3 fL (35.1-43.9); Red Blood Count 2.42 Miln/mm3 (4.50-5.90); White Blood Count 9.8 Thou/mm3 (3.8-10.6)
[2025-05-12 05:31] LABS: Hemoglobin 7.0 g/dL (13.5-16.0)
[2025-05-12 05:52] LABS: Alanine Aminotransferase 16 U/L (10-49); Albumin, Serum 3.4 gm/dL (3.4-4.8); Albumin/Globulin Ratio 2.0 (1.2-2.2); Alkaline Phosphatase 56 U/L (46-116); Anion Gap 11 (7-16); Aspartate Amino Transferase 12 U/L (0-34); BUN/Creatinine Ratio 26 Ratio (12-20); Bilirubin,Total 0.3 mg/dL (0.3-1.2); Blood Urea Nitrogen 18 mg/dL (9-23); Calcium 8.6 mg/dL (8.3-10.6); Calcium (Corrected) 9.1 mg/dL (8.5-10.1); Carbon Dioxide 21.8 mMol/L (20.0-31.0); Chloride 109 mMol/L (98-107); Creatinine (Component) 0.7 mg/dL (0.6-1.3); Estimated Creatinine Clearance 86.3 mL/min (>60); Globulin 1.7 gm/dL (2.3-3.5); Glucose 221 mg/dL (74-106); Magnesium 1.2 mg/dL (1.6-2.6); Osmolality,Calculated 292 (275-295); Phosphorous 2.8 mg/dL (2.4-5.1); Potassium 3.8 mMol/L (3.4-5.1); Sodium 142 mMol/L (136-145); Total Protein 5.1 gm/dL (5.7-8.2); eGFR > 60 See Note
[2025-05-12] MEDS: SUCRALFATE 1 GM TABLET PO ×4 (06:17→21:30)
[2025-05-12] MEDS: INSULIN LISPRO (AdmeLOG) 1 UNIT/0.01 ML UNIT SC ×4 (08:25→21:34)
[2025-05-12] MEDS: FERRIC SOD GLUC INJ 125 MG in SODIUM CHLORIDE 0.9% 100 ML 110 MG IV (09:44)
[2025-05-12 10:08] LABS: Magnesium 1.2 mg/dL (1.6-2.6)
[2025-05-12 10:50] LABS: Basophils # (Auto) 0.0 Thou/mm3 (0.0-0.2); Basophils % (Auto) 0 % (0-2.5); Eosinophils # (Auto) 0.0 Thou/mm3 (0.0-0.5); Eosinophils % (Auto) 1 % (0-10); Hematocrit 21.7 % (41.0-53.0); Immature Granulocytes Auto 0.37 Thou/mm3 (0.00-0.00); Lymphocytes # (Auto) 0.9 Thou/mm3 (1.0-4.8); Lymphocytes % (Auto) 12 % (10-50); Mean Corpuscular HGB Conc 31.8 g/dl (31.0-37.0); Mean Corpuscular Hemoglobin 29.1 pg (25.0-35.0); Mean Corpuscular Volume 92 fL (80-100); Monocytes # (Auto) 0.6 Thou/mm3 (0.0-0.8); Monocytes % (Auto) 7 % (0-12); Neutrophils # (Auto) 6.0 Thou/mm3 (1.8-7.7); Neutrophils % (Auto) 76 % (37-80); Nucleated Red Blood Cell # 0.03 Thou/mm3 (0.00-0.00); Nucleated Red Blood Cell % 0 /100 WBC (0); Platelet Count 221 Thou/mm3 (140-440); RDW Standard Deviation 65.7 fL (35.1-43.9); Red Blood Count 2.37 Miln/mm3 (4.50-5.90); White Blood Count 7.9 Thou/mm3 (3.8-10.6)
[2025-05-12 11:08] LABS: Hemoglobin 6.9 g/dL (13.5-16.0)
[2025-05-12] MEDS: MAGNESIUM OXIDE 400 MG TABLET PO (11:38)
[2025-05-12] MEDS: PANTOPRAZOLE/NS 80MG IV PREMIX 80 MG/100 ML BAG 10 MG IV (14:12)
--- NOTE | 2025-05-12 15:47 | ESPR_ITS ---
<Statement entered by Casa Merchant MD - 05/23/25 13:47> I reviewed above note and agree with findings and plans. I have also personally examined the patient with medicine team and went over assessment and plan with medical team including unpaid intern and resident physician. <Statement entered by Anton Ceja MD - 05/12/25 23:40> Patient was examined and case was reviewed with team including attending physician. Note reviewed, I agree with most of its contents and agree with the patient's care. Patient seen today at the bedside found awake, alert, orientedx3. No overnight events reported. Vitals and labs reviewed. Patient noted to have hemoglobin of 7.0, repeat H&H shows hemoglobin of 6.9. Decision was made to transfuse 2 PRBCs and to follow-up H&H. Patient currently with no active symptoms at this time if hemoglobin remains stable we will likely discharge in the next 24-48 hours. Case discussed with my attending Dr. Shonda Ceja MD PGY-2 Documentation for date of: 05/12/25 Subjective Subjective Interval history: No overnight events. Patient was seen at bedside this morning. Patient reports last bowel movement was at midnight and no blood in stool. Denies abdominal pain, nausea, vomiting, and shortness of breath. Exam Vital Signs Temp Pulse Resp BP Pulse Ox O2 Del Method 97.1 F 99 18 127/68 95 Room Air 05/12/25 13:05/12/25 13:05/12/25 13:05/12/25 13:05/12/25 13:05/12/25 12:00 Narrative Exam Physical Exam General: Awake and in no acute distress. Conversational and non-toxic appearing. HEENT: Normocephalic, atraumatic, mucous membranes moist. Heart: Regular rate and rhythm, normal S1 and S2, no murmurs. Lungs: Clear to auscultation with no wheezing or crackles. Abdomen: Soft, nondistended, nontender. No guarding or rebound tenderness. Neurologic: Alert and oriented x3, no gross neurological deficit, and patient able to move all 4 extremities. Extremities: No edema. Skin: No rash or ecchymoses. Objective Labs 05/12/25 19:48 05/12/25 04:30 Labs: Laboratory Results - last 24 hr 05/10/25 05/12/25 05/12/25 16:20 04:30 10:05 WBC 9.8 7.9 RBC 2.42 L 2.37 L Hgb 7.0 L 6.9 L* Hct 22.5 L 21.7 L* MCV 93 92 MCH 28.9 29.1 MCHC 31.1 31.8 RDW Std Deviation 67.3 H 65.7 H Plt Count 247 D 221 Neut % (Auto) 74 76 Lymph % (Auto) 11 12 [place] % (Auto) 8 7 Eos % (Auto) 1 1 Baso % (Auto) 0 0 Neut # (Auto) 7.3 6.0 Lymph # (Auto) 1.1 0.9 L [place] # (Auto) 0.8 0.6 Eos # (Auto) 0.1 0.0 Baso # (Auto) 0.0 0.0 Immature Gran # (Auto) 0.56 H 0.37 H Absolute Nucleated RBC 0.05 H 0.03 H Immature Gran % 6 H 5 H Nucleated RBC % 1 H 0 Sodium 142 Potassium 3.8 Chloride 109 H Carbon Dioxide 21.8 Anion Gap 11 BUN 18 Creatinine 0.7 Estim Creat Clear Calc 86.3 eGFR > 60 BUN/Creatinine Ratio 26 H Glucose 221 H Calculated Osmolality 292 Calcium 8.6 Corrected Calcium 9.1 Phosphorus 2.8 Magnesium 1.2 L 1.2 L Total Bilirubin 0.3 AST 12 ALT 16 Alkaline Phosphatase 56 Total Protein 5.1 L Albumin 3.4 Globulin 1.7 L Albumin/Globulin Ratio 2.0 Blood Type B Positive Antibody Screen NEGATIVE Crossmatch See Detail Blood Bank Wristband ID Yes Quality Measures Quality Measures VTE prophylaxis Assessment & Plan Assessment Current Active Medications: Generic Name Dose Route Start Last Admin Trade Name Freq PRN Reason Stop Dose Admin Acetaminophen 650 mg 05/10/25 15:57 05/11/25 03:28 Acetaminophen 325 Mg Tablet PO 06/09/25 15:56 650 mg Q6H PRN Administration PAIN SCALE 1-3 (mild Hydrocodone Bitart/Acetaminophen 1 tab 05/10/25 16:03 05/12/25 04:17 Hydrocodone/Apap 5/325 Tablet PO 05/15/25 16:02 1 tab Q4HR PRN Administration PAIN SCALE 4-10(Mod-Sev Dextrose 25 ml 05/10/25 16:16 Dextrose 50%-Water Inj 50 Ml Syringe IV 06/09/25 16:15 Q15MIN PRN BG 50-70 responsive npo pt Dextrose 50 ml 05/10/25 16:16 Dextrose 50%-Water Inj 50 Ml Syringe IV 06/09/25 16:15 Q15MIN PRN BG <50 OR BG <70 & pt unresponsive Glucagon 1 mg 05/10/25 16:16 Glucagon Inj 1 Mg Vial IM Q15MIN PRN BG <70, and no IV access Ferric Sodium Gluconate 125 mg 110 mls @ 110 mls/hr 05/11/25 10:45 05/12/25 09:44 / Sodium Chloride IV 06/10/25 10:44 110 mls/hr QDAY EL Administration Sodium Chloride 500 mls @ 20 mls/hr 05/11/25 17:30 05/11/25 17:55 Ns IV 05/12/25 17:29 20 mls/hr .Q24H ONE Administration Pantoprazole Sodium 80 mg in 100 mls @ 10 mls/hr 05/12/25 13:03 05/12/25 14:12 Protonix/Ns 80mg Iv Premix IV 05/12/25 23:02 10 mls/hr X1 ONE Administration Insulin Glargine 25 unit 05/10/25 21:00 05/11/25 21:15 Insulin Glargine (Lantus) 5 Unit/0.05 Ml (Per 5 Units) SC 06/09/25 20:59 25 unit QPM EL Administration Insulin Human Lispro 0 unit 05/11/25 23:15 05/12/25 11:38 Insulin Lispro (Admelog) 1 Unit/0.01 Ml Unit SC 06/10/25 23:14 4 unit ACHS EL Administration Protocol Ondansetron HCl 4 mg 05/10/25 16:26 Ondansetron Inj 2 Mg/Ml Inj 2 Ml IVP 06/09/25 16:25 Q6HR PRN NAUSEA OR VOMITING Protocol Sennosides 1 tab 05/10/25 15:57 Senna Tablet PO 06/09/25 15:56 BID PRN CONSTIPATION Protocol Sucralfate 1 gm 05/10/25 17:00 05/12/25 11:38 Sucralfate 1 Gm Tablet PO 06/09/25 16:59 1 gm QID EL Administration Plan 60-year-old male with a history of duodenal ulcer-related upper GI bleed (s/p EGD with endoclips), HTN, DM2, HLD, hypothyroidism, BPH, and diverticulosis, presenting with melena, abdominal pain, and generalized weakness, found to have acute drop in hemoglobin concerning for recurrent upper GI bleeding. #Upper GI Bleed secondary to duodenal ulcer #History of duodenal ulcer s/p EGD with bandings CT abd/pelvis: thickening of gastric mucosa S/p EGD (05/11) with findings of gastritis, non-bleeding gastric ulcer with a clean ulcer base with normal second portion of the duodenum. Pending pathology results from biopsy of gastric ulcer, gastric antrum and cardia. Hemoglobin 11.3 --> 8.8 --> 8.3 --> 8.4 --> 7.0 --> 6.[address] Alanis (GI) about the drop in hemoglobin Plan - GI recommendations - Avoid NSAIDs - Stop IV Protonix 40mg twice daily and Start Protonix 8mg drip - Stop peptic ulcer disease diet and start clear liquid diet - Transfuse 2 units of blood and repeat H&H - If hemoglobin continues to drop, Dr. Alanis will cauterize ulcer - If hemoglobin stabilizes, will need to repeat endoscopy in 3 months - recommend surgerical intervention if ulcer is still present #Acute on Chronic Anemia Hgb trending down - discussed with GI who suspects bleeding from biopsy sites during recent EGD Plan - 2 units of pRBCs ordered - Trend H/H - Continue IV iron 125mg QD #Leukocytosis (resolved) Likely reactive, possibly related to steroid injection received to R knee or recent GI bleed No fevers, hemodynamically stable Blood cultures negative at 48h Plan - Monitor daily CBC - No antibiotics needed at this time #Type 2 Diabetes Mellitus - Insulin dependent Hemoglobin A1c 6.4% on 05/11 Patient's blood glucose remains elevated in the 200s despite current regimen of glargine 25 units nightly. Plan to increase glargine to 30 units nightly to improve glycemic control Plan: - Continue insulin sliding scale - Discontinue Insulin Glargine 25U - Start Insulin Glargine 30U on 05/13 - Hold metformin while inpatient #Electrolyte Abnormalities (resolved) Magnesium and phosphorus normalized Plan: - Continue to monitor daily chem panel - Replete PRN to keep Mg >2, K > 4 Health Maintenance Dispo: [facility]Tele DVT prophylaxis: SCDs GI prophylaxis: Protonix drip Diet: Clear liquid diet Lines: Peripheral IV Code status: Full code Patient plan of care was discussed with the senior resident, Dr. Terrance Ceja, and attending physician, Dr. Merchant. Kolby Galvan, DO PGY-1
--- NOTE | 2025-05-12 16:58 | PD.IMPROG ---
Documentation for date of: 05/12/25 Subjective Subjective Interval history: Case discussed with internal medicine team Hemoglobin hematocrit did drop down to 6.9 and 21.7 Patient has a large ulcer in the prepyloric region which was biopsied because of the CT scan abnormality showing scarring in that region Is a chronic ulcer there was no choice but to biopsy the ulcer acid that is where most likely the patient is bleeding from There was no visible blood vessel in the base of the ulcer it was Brian class III My suggestion to the internal medicine team is as follows Change to clear liquid diet DC IV Protonix Start on a Protonix drip at 8 mg/h Give 1 unit of PRBC And follow the CBC If the patient continues to bleed I will do a repeat endoscopy for cauterization of the biopsy site Eventually patient is going to need either Billroth I or Billroth II surgical intervention if the ulcer in a 12-week. Does not heal properly Exam Vital Signs Temp Pulse Resp BP Pulse Ox O2 Del Method 98.1 F 89 17 138/74 H 95 Room Air 05/12/25 16:34 05/12/25 16:34 05/12/25 16:34 05/12/25 16:34 05/12/25 16:34 05/12/25 12:00 Objective Labs 05/12/25 10:05 05/12/25 04:30 Labs: Laboratory Results - last 24 hr 05/10/25 05/12/25 05/12/25 16:20 04:30 10:05 WBC 9.8 7.9 RBC 2.42 L 2.37 L Hgb 7.0 L 6.9 L* Hct 22.5 L 21.7 L* MCV 93 92 MCH 28.9 29.1 MCHC 31.1 31.8 RDW Std Deviation 67.3 H 65.7 H Plt Count 247 D 221 Neut % (Auto) 74 76 Lymph % (Auto) 11 12 [place] % (Auto) 8 7 Eos % (Auto) 1 1 Baso % (Auto) 0 0 Neut # (Auto) 7.3 6.0 Lymph # (Auto) 1.1 0.9 L [place] # (Auto) 0.8 0.6 Eos # (Auto) 0.1 0.0 Baso # (Auto) 0.0 0.0 Immature Gran # (Auto) 0.56 H 0.37 H Absolute Nucleated RBC 0.05 H 0.03 H Immature Gran % 6 H 5 H Nucleated RBC % 1 H 0 Sodium 142 Potassium 3.8 Chloride 109 H Carbon Dioxide 21.8 Anion Gap 11 BUN 18 Creatinine 0.7 Estim Creat Clear Calc 86.3 eGFR > 60 BUN/Creatinine Ratio 26 H Glucose 221 H Calculated Osmolality 292 Calcium 8.6 Corrected Calcium 9.1 Phosphorus 2.8 Magnesium 1.2 L 1.2 L Total Bilirubin 0.3 AST 12 ALT 16 Alkaline Phosphatase 56 Total Protein 5.1 L Albumin 3.4 Globulin 1.7 L Albumin/Globulin Ratio 2.0 Blood Type B Positive Antibody Screen NEGATIVE Crossmatch See Detail Blood Bank Wristband ID Yes Impressions Impression: Pylorus and prepyloric ulcer anemia blood loss Plan As in the history of present illness Assessment & Plan A&P Narrative # Leukocytosis # Abnormal CT scan of the abdomen and pelvis # Posthemorrhagic anemia Plan Patient had an endoscopy done on 02/25/2025 when he presented with a hemoglobin 6.1 g at that time he had a bleeding ulcer which was electrocoagulated with endoscopic intervention He might have ongoing bleeding from that site Consent obtained for fiberoptic esophagogastroduodenoscopy with possible biopsy possible therapeutic intervention under intravenous moderate sedation which has been scheduled for tomorrow IV Protonix N.p.o. midnight tonight Time Spent With Patient Time: Total time spent is greater than 50% in coordination of care (as documented) at patient's floor/unit and/or counseling patient:
--- NOTE | 2025-05-12 18:36 | PC.NURSE ---
Dr. Terrance barboza at bedside to assess pt for PVC, pt is asymptotic, new medication order
[2025-05-12 20:18] LABS: Hematocrit 28.9 % (41.0-53.0); Hemoglobin 9.7 g/dL (13.5-16.0)
[2025-05-12] MEDS: Magnesium Sulfate 4 GM Ivpb 4 GM/50 ML BAG IV (21:30)
[2025-05-12] MEDS: INSULIN GLARGINE (Lantus) 5 UNIT/0.05 ML (PER 5 UNITS) 30 UNIT SC (21:34)
[2025-05-13] VITALS (10 sets, daily range): BP systolic 123–147; BP diastolic 74–93; PULSE 86–104; RESP 16–99; TEMP 36.2–36.7; O2SAT 98–100; BMI 27.8
[2025-05-13 05:54] LABS: Basophils # (Auto) 0.1 Thou/mm3 (0.0-0.2); Basophils % (Auto) 1 % (0-2.5); Eosinophils # (Auto) 0.1 Thou/mm3 (0.0-0.5); Eosinophils % (Auto) 1 % (0-10); Hematocrit 27.5 % (41.0-53.0); Hemoglobin 8.9 g/dL (13.5-16.0); Immature Granulocytes Auto 0.49 Thou/mm3 (0.00-0.00); Lymphocytes # (Auto) 1.0 Thou/mm3 (1.0-4.8); Lymphocytes % (Auto) 10 % (10-50); Mean Corpuscular HGB Conc 32.4 g/dl (31.0-37.0); Mean Corpuscular Hemoglobin 28.3 pg (25.0-35.0); Mean Corpuscular Volume 88 fL (80-100); Monocytes # (Auto) 0.7 Thou/mm3 (0.0-0.8); Monocytes % (Auto) 7 % (0-12); Neutrophils # (Auto) 8.1 Thou/mm3 (1.8-7.7); Neutrophils % (Auto) 77 % (37-80); Nucleated Red Blood Cell # 0.06 Thou/mm3 (0.00-0.00); Nucleated Red Blood Cell % 1 /100 WBC (0); Platelet Count 218 Thou/mm3 (140-440); RDW Standard Deviation 63.3 fL (35.1-43.9); Red Blood Count 3.14 Miln/mm3 (4.50-5.90); White Blood Count 10.5 Thou/mm3 (3.8-10.6)
[2025-05-13] MEDS: SUCRALFATE 1 GM TABLET PO ×4 (06:19→20:05)
[2025-05-13 06:40] LABS: Alanine Aminotransferase 14 U/L (10-49); Albumin, Serum 3.4 gm/dL (3.4-4.8); Albumin/Globulin Ratio 2.1 (1.2-2.2); Alkaline Phosphatase 55 U/L (46-116); Anion Gap 12 (7-16); Aspartate Amino Transferase < 10 U/L (0-34); BUN/Creatinine Ratio 37 Ratio (12-20); Bilirubin,Total 0.3 mg/dL (0.3-1.2); Blood Urea Nitrogen 26 mg/dL (9-23); Calcium 8.6 mg/dL (8.3-10.6); Calcium (Corrected) 9.1 mg/dL (8.5-10.1); Carbon Dioxide 21.6 mMol/L (20.0-31.0); Chloride 107 mMol/L (98-107); Creatinine (Component) 0.7 mg/dL (0.6-1.3); Estimated Creatinine Clearance 84.0 mL/min (>60); Globulin 1.6 gm/dL (2.3-3.5); Glucose 312 mg/dL (74-106); Magnesium 2.5 mg/dL (1.6-2.6); Osmolality,Calculated 297 (275-295); Phosphorous 2.7 mg/dL (2.4-5.1); Potassium 3.8 mMol/L (3.4-5.1); Sodium 141 mMol/L (136-145); Total Protein 5.0 gm/dL (5.7-8.2); eGFR > 60 See Note
[2025-05-13] MEDS: INSULIN LISPRO (AdmeLOG) 1 UNIT/0.01 ML UNIT SC ×3 (07:40→20:18)
[2025-05-13] MEDS: INSULIN LISPRO (AdmeLOG) 1 UNIT/0.01 ML UNIT 5 UNIT SC ×2 (09:39→11:23)
[2025-05-13] MEDS: POTASSIUM CHL 10 mEq IVPB 10 MEQ/100 ML BAG 100 MEQ IV ×4 (09:43→13:16)
[2025-05-13] MEDS: FERRIC SOD GLUC INJ 125 MG in SODIUM CHLORIDE 0.9% 100 ML 110 MG IV (09:45)
[2025-05-13] MEDS: PANTOPRAZOLE/NS 80MG IV PREMIX 80 MG/100 ML BAG 10 MG IV ×2 (11:09→20:05)
--- NOTE | 2025-05-13 14:08 | ESPR_ITS ---
<Statement entered by Salazar Acevedo MD - 05/13/25 14:59> Senior Resident Attestation: I supervised/discussed management plan with management internship physician Dr. Henderson, and was involved in the care of this patient. I personally saw and examined the patient and discussed the assessment and plan with the entire medicine team, including my attending. I agree with the assessment and plan as documented. No acute overnight events reported. Patient was seen and examined at the bedside. Posttransfusion H&H was 9.7, morning labs showed hemoglobin 8.9. Patient was given 5 additional units of insulin lispro x 2 due to significant hyperglycemia, his sliding scale was adjusted to step 3. Case was discussed with Dr. Alanis who recommended to continue monitoring patient's hemoglobin and if no bleeding is found tomorrow we can discharge. Patient's care was discussed with attending physician, Dr. Dean. Salazar Acevedo MD PGY-3. Documentation for date of: 05/13/25 Subjective Subjective Interval history: No overnight events. Evaluated at bedside. Hgb this morning 8.9, decreased from 9.7 yesterday post 1pRBC transfusion. Pt denied melena or bloody diarrhea today, reports that his stool looks more normal. Spoke with Dr. Alanis on the phone, he is ok with pt discharge tmr if pt's hemoglobin is stable, and advised outpt follow up with [facility] for weekly CBC and close Hgb monitoring. Exam Vital Signs Temp Pulse Resp BP Pulse Ox O2 Del Method 97.2 F 93 16 146/83 H 99 Room Air 05/13/25 12:05/13/25 12:05/13/25 12:05/13/25 12:05/13/25 12:05/13/25 12:00 Narrative Exam General: Well appearing, well nourished, in no distress. Oriented x 3, normal mood and affect. Ambulating without difficulty. Skin: Good turgor, unusual bruising to posterior R lower extremity. Heart: No cardiomegaly or thrills; regular rate and rhythm, no murmur or gallop. Lungs: Clear to auscultation and percussion. No rales, wheeze, or rhonchi Abdomen: No distention, tenderness, guarding. Back: Spine normal without deformity or tenderness, no CVA tenderness Extremities: No amputations or deformities, cyanosis, edema or varicosities, peripheral pulses intact. Objective Labs 05/14/25 05:35 05/14/25 05:35 Labs: Laboratory Results - last 24 hr 05/10/25 05/12/25 05/13/25 16:20 19:48 04:27 WBC 10.5 RBC 3.14 L Hgb 9.7 L D 8.9 L Hct 28.9 L 27.5 L MCV 88 MCH 28.3 MCHC 32.4 RDW Std Deviation 63.3 H Plt Count 218 Neut % (Auto) 77 Lymph % (Auto) 10 Wallace % (Auto) 7 Eos % (Auto) 1 Baso % (Auto) 1 Neut # (Auto) 8.1 H Lymph # (Auto) 1.0 Wallace # (Auto) 0.7 Eos # (Auto) 0.1 Baso # (Auto) 0.1 Immature Gran # (Auto) 0.49 H Absolute Nucleated RBC 0.06 H Immature Gran % 5 H Nucleated RBC % 1 H Sodium 141 Potassium 3.8 Chloride 107 Carbon Dioxide 21.6 Anion Gap 12 BUN 26 H Creatinine 0.7 Estim Creat Clear Calc 84.0 eGFR > 60 BUN/Creatinine Ratio 37 H Glucose 312 H D Calculated Osmolality 297 H Calcium 8.6 Corrected Calcium 9.1 Phosphorus 2.7 Magnesium 2.5 Total Bilirubin 0.3 AST < 10 ALT 14 Alkaline Phosphatase 55 Total Protein 5.0 L Albumin 3.4 Globulin 1.6 L Albumin/Globulin Ratio 2.1 Blood Type B Positive Antibody Screen NEGATIVE Crossmatch See Detail Blood Bank Wristband ID Yes Quality Measures Quality Measures VTE prophylaxis Assessment & Plan Assessment Current Active Medications: Generic Name Dose Route Start Last Admin Trade Name Freq PRN Reason Stop Dose Admin Acetaminophen 650 mg 05/10/25 15:57 05/11/25 03:28 Acetaminophen 325 Mg Tablet PO 06/09/25 15:56 650 mg Q6H PRN Administration PAIN SCALE 1-3 (mild Hydrocodone Bitart/Acetaminophen 1 tab 05/10/25 16:03 05/12/25 23:50 Hydrocodone/Apap 5/325 Tablet PO 05/15/25 16:02 1 tab Q4HR PRN Administration PAIN SCALE 4-10(Mod-Sev Dextrose 25 ml 05/10/25 16:16 Dextrose 50%-Water Inj 50 Ml Syringe IV 06/09/25 16:15 Q15MIN PRN BG 50-70 responsive npo pt Dextrose 50 ml 05/10/25 16:16 Dextrose 50%-Water Inj 50 Ml Syringe IV 06/09/25 16:15 Q15MIN PRN BG <50 OR BG <70 & pt unresponsive Glucagon 1 mg 05/10/25 16:16 Glucagon Inj 1 Mg Vial IM Q15MIN PRN BG <70, and no IV access Pantoprazole Sodium 80 mg in 100 mls @ 10 mls/hr 05/13/25 10:55 05/13/25 11:09 Protonix/Ns 80mg Iv Premix IV 05/13/25 20:54 10 mls/hr X1 ONE Administration Insulin Glargine 30 unit 05/12/25 21:00 05/12/25 21:34 Insulin Glargine (Lantus) 5 Unit/0.05 Ml (Per 5 Units) SC 06/11/25 20:59 30 unit QPM EL Administration Insulin Human Lispro 0 unit 05/13/25 10:35 05/13/25 11:24 Insulin Lispro (Admelog) 1 Unit/0.01 Ml Unit SC 06/10/25 23:14 4 unit ACHS EL Administration Protocol Ondansetron HCl 4 mg 05/10/25 16:26 Ondansetron Inj 2 Mg/Ml Inj 2 Ml IVP 06/09/25 16:25 Q6HR PRN NAUSEA OR VOMITING Protocol Sennosides 1 tab 05/10/25 15:57 Senna Tablet PO 06/09/25 15:56 BID PRN CONSTIPATION Protocol Sucralfate 1 gm 05/10/25 17:00 05/13/25 11:24 Sucralfate 1 Gm Tablet PO 06/09/25 16:59 1 gm QID EL Administration Plan 60M with history of upper GI bleed s/p EGD with 3 bandings, HTN, DM2, HLD, hypothyroidism, BPH, diverticulosis admitted for concern of another episode of upper GI bleed. Consult GI, okay with discharge on 05/13 if Hgb stable. Advised outpt PCP follow up for weekely CBC to trend H/H. Diet Advanced to PUD diet. #Upper GI Bleed #History of duodenal ulcer s/p EGD with bandings Pt has significant history of upper GI bleed. Admitted recently on 02/24/25 for anemia, EGD showed duodenal ulcers. 4pRBC, 1 FFP, 1 platelet was transfused due to hemodynamic stability overnight on 02/25/25. Pt was transfered to [facility] for IR embolization of the gastric-duodenal artery per GI recommendation. At [facility] CTA was obtained and showed no evidence of active bleeding, IR consulted for embolization was deemed unwarranted. 05/10: CXR unremarkable. CT A/P showed significant mucosal thickening involving the stomach and perinephric stranding 05/11: Hgb stable at 8.4. VS stable. EGD showed non-bleeding cratered gastric ulcer with diffuse moderate inflammation in gastric antrum. Biopsies taken. 05/12: Hgb 6.9, post 1 pRBC h/h 9.7/28.9 05/13 Hgb 8.9 Dx: - EGD - May consider another CTA if pt hemoglobin decrease overnight. Plan: - Sucralfate 1gm PO QID - Contiunue Pantoprazole drip 8mg/h per GI recommendation. - Monitor CBC, Blood transfusion if Hgb < 7 - Consult GI, okay with discharge on 05/13 if Hgb stable. Advised outpt PCP follow up for weekely CBC to trend H/H. - NPO after midnight - Monitor VS closely #Acute on Chronic Anemia #Acute blood loss, likely due to hemodilation Initial Hgb 11.3, repeat Hgb 8.8 05/10. Retic count high 5.6. Iron low 27. Iron sat low 11%. Ferritin 272. 05/11: Hgb stable at 8.4. Dx: - Daily CBC - Trend H/H - Iron panel, ferritin, rectic count ordered 05/10 Plan: - blood transfusion if Hgb < 7, type and Screen ordered 05/10 - Continue IV iron 125mg QD #Leukocytosis - downtrending Initial WBC 19.8. Does not meet SIRS criteria. Likely due to steroid injection pt received to his R knee vs infectious origin. Dx: - Blood Culture NG @ 48H Plan: - Daily CBC - Watch for signs of fever > 100.3F #Insulin dependent DM 2 03/04/25 A1C 7.2%. Dx: - 05/11 A1C 6.4%, within goal of < 7% Plan: - Diet and lifestyle modification. - Insulin sliding scale - Continue Insulin Glargine 30U, increased from 25U - Hold home med Insulin Glargine 40U, metformin 1000mg PO BID - Outpt PCP followup #Electrolyte Abnormalities - resolved #Hypophophatemia - resolved #Hypomagnemia -resolved Initial Mag 0.9, Phos 2.3 Dx: - daily chem, mag, and phos Plan: - Keep Mag > 2, K > 4, replete as needed. Dispo: MedTele DVT prophylaxis: SCDs GI prophylaxis: Protonix drig 8mg/h Diet: Peptic Ulcer disease diet Lines: Peripheral IV Code status: Full code Case discussed with my senior resident Dr. Acevedo Case discussed with my attending Dr. Jermaine Neff [facility], DO PGY 1 Attending Provider Attestation/Addendum I have examined the patient, reviewed labs and imaging findings, discussed the case with the resident(s), and reviewed entered orders. I agree with the plan of care as outlined in this note, with these additional summaries/recommendations: Patient seen at bedside. No acute overnight events. Patient is status post EGD which revealed nonbleeding gastric ulcer (Brian class III) and gastritis. Biopsies were taken and pending report. Continue Protonix and peptic ulcer diet. Patient is status post blood transfusion and hemoglobin has now decreased from 9.7 to 8.9. Given the severity of patient's drop in hemoglobin he will remain hospitalized. Will discuss with gastroenterology. Continue to avoid NSAIDs, chemical anticoagulation, aspirin, steroids, alcohol, smoking. Patient also found to have uncontrolled blood sugars today with hyperglycemia into the 300s. Patient has underlying diabetes mellitus type 2 with A1c 6.4%. Will continue to adjust basal bolus insulin to goal of 140-180 while hospitalized. Patient updated on the plan and in agreement. All questions answered to satisfaction. Please see residents note for additional details of management. Dr. Jermaine MD
[2025-05-13] MEDS: HYDROcodone/APAP 5/325 TABLET 1 TAB PO ×2 (14:44→23:42)
--- NOTE | 2025-05-13 16:15 | PC.SS ---
Rounding: Pending Dr. Alanis reccs poss DC tomorrow
--- NOTE | 2025-05-13 16:45 | PD.IMPROG ---
Documentation for date of: 05/13/25 Subjective Subjective Interval history: Hemoglobin hematocrit 8.9 and 27.5 patient did get 1 unit of PRBCs yesterday Case discussed with the internal medicine team Exam Vital Signs Temp Pulse Resp BP Pulse Ox O2 Del Method 97.2 F 93 16 146/83 H 99 Room Air 05/13/25 12:00 05/13/25 12:00 05/13/25 12:00 05/13/25 12:00 05/13/25 12:00 05/13/25 12:00 Objective Labs 05/13/25 04:27 05/13/25 04:27 Labs: Laboratory Results - last 24 hr 05/10/25 05/12/25 05/13/25 16:20 19:48 04:27 WBC 10.5 RBC 3.14 L Hgb 9.7 L D 8.9 L Hct 28.9 L 27.5 L MCV 88 MCH 28.3 MCHC 32.4 RDW Std Deviation 63.3 H Plt Count 218 Neut % (Auto) 77 Lymph % (Auto) 10 [place] % (Auto) 7 Eos % (Auto) 1 Baso % (Auto) 1 Neut # (Auto) 8.1 H Lymph # (Auto) 1.0 [place] # (Auto) 0.7 Eos # (Auto) 0.1 Baso # (Auto) 0.1 Immature Gran # (Auto) 0.49 H Absolute Nucleated RBC 0.06 H Immature Gran % 5 H Nucleated RBC % 1 H Sodium 141 Potassium 3.8 Chloride 107 Carbon Dioxide 21.6 Anion Gap 12 BUN 26 H Creatinine 0.7 Estim Creat Clear Calc 84.0 eGFR > 60 BUN/Creatinine Ratio 37 H Glucose 312 H D Calculated Osmolality 297 H Calcium 8.6 Corrected Calcium 9.1 Phosphorus 2.7 Magnesium 2.5 Total Bilirubin 0.3 AST < 10 ALT 14 Alkaline Phosphatase 55 Total Protein 5.0 L Albumin 3.4 Globulin 1.6 L Albumin/Globulin Ratio 2.1 Crossmatch See Detail Impressions Impression: Large prepyloric and pylorus ulcer with scarring in the region of the pylorus Advance to peptic ulcer disease diet CBC in the morning Assessment & Plan A&P Narrative # Leukocytosis # Abnormal CT scan of the abdomen and pelvis # Posthemorrhagic anemia Plan Patient had an endoscopy done on 02/25/2025 when he presented with a hemoglobin 6.1 g at that time he had a bleeding ulcer which was electrocoagulated with endoscopic intervention He might have ongoing bleeding from that site Consent obtained for fiberoptic esophagogastroduodenoscopy with possible biopsy possible therapeutic intervention under intravenous moderate sedation which has been scheduled for tomorrow IV Protonix N.p.o. midnight tonight Time Spent With Patient Time: Total time spent is greater than 50% in coordination of care (as documented) at patient's floor/unit and/or counseling patient:
[2025-05-13] MEDS: INSULIN GLARGINE (Lantus) 5 UNIT/0.05 ML (PER 5 UNITS) 30 UNIT SC (20:18)
[2025-05-14] VITALS (27 sets, daily range): BP systolic 120–153; BP diastolic 57–88; PULSE 74–103; RESP 16–97; TEMP 36.1–36.9; O2SAT 97–100; BMI 27.8
--- NOTE | 2025-05-14 04:16 | PC.NURSE ---
notified Dr. Hill regarding patient's BM has a small amount of bright red blood, stool itself is dark brown in color. Patient is asymptomatic, continue to monitor patient, no new orders received.
[2025-05-14] MEDS: SUCRALFATE 1 GM TABLET PO ×3 (05:08→20:51)
[2025-05-14] MEDS: PANTOPRAZOLE/NS 80MG IV PREMIX 80 MG/100 ML BAG 10 MG IV ×2 (06:05→18:42)
[2025-05-14 06:28] LABS: Basophils # (Auto) 0.0 Thou/mm3 (0.0-0.2); Basophils % (Auto) 0 % (0-2.5); Eosinophils # (Auto) 0.1 Thou/mm3 (0.0-0.5); Eosinophils % (Auto) 1 % (0-10); Hematocrit 23.0 % (41.0-53.0); Immature Granulocytes Auto 0.20 Thou/mm3 (0.00-0.00); Lymphocytes # (Auto) 1.0 Thou/mm3 (1.0-4.8); Lymphocytes % (Auto) 10 % (10-50); Mean Corpuscular HGB Conc 31.7 g/dl (31.0-37.0); Mean Corpuscular Hemoglobin 28.3 pg (25.0-35.0); Mean Corpuscular Volume 89 fL (80-100); Monocytes # (Auto) 0.7 Thou/mm3 (0.0-0.8); Monocytes % (Auto) 7 % (0-12); Neutrophils # (Auto) 7.4 Thou/mm3 (1.8-7.7); Neutrophils % (Auto) 80 % (37-80); Nucleated Red Blood Cell # 0.05 Thou/mm3 (0.00-0.00); Nucleated Red Blood Cell % 1 /100 WBC (0); Platelet Count 196 Thou/mm3 (140-440); RDW Standard Deviation 65.2 fL (35.1-43.9); Red Blood Count 2.58 Miln/mm3 (4.50-5.90); White Blood Count 9.4 Thou/mm3 (3.8-10.6)
[2025-05-14 06:44] LABS: Hemoglobin 7.3 g/dL (13.5-16.0)
[2025-05-14 06:46] LABS: Alanine Aminotransferase 19 U/L (10-49); Albumin, Serum 3.3 gm/dL (3.4-4.8); Albumin/Globulin Ratio 1.9 (1.2-2.2); Alkaline Phosphatase 52 U/L (46-116); Anion Gap 10 (7-16); Aspartate Amino Transferase 14 U/L (0-34); BUN/Creatinine Ratio 22 Ratio (12-20); Bilirubin,Total 0.2 mg/dL (0.3-1.2); Blood Urea Nitrogen 13 mg/dL (9-23); Calcium 9.1 mg/dL (8.3-10.6); Calcium (Corrected) 9.7 mg/dL (8.5-10.1); Carbon Dioxide 21.8 mMol/L (20.0-31.0); Chloride 109 mMol/L (98-107); Creatinine (Component) 0.6 mg/dL (0.6-1.3); Estimated Creatinine Clearance 98.0 mL/min (>60); Globulin 1.7 gm/dL (2.3-3.5); Glucose 157 mg/dL (74-106); Magnesium 1.7 mg/dL (1.6-2.6); Osmolality,Calculated 284 (275-295); Phosphorous 3.4 mg/dL (2.4-5.1); Potassium 3.7 mMol/L (3.4-5.1); Sodium 141 mMol/L (136-145); Total Protein 5.0 gm/dL (5.7-8.2); eGFR > 60 See Note
[2025-05-14] MEDS: INSULIN LISPRO (AdmeLOG) 1 UNIT/0.01 ML UNIT SC ×3 (07:52→20:50)
[2025-05-14 10:10] LABS: Hematocrit 20.8 % (41.0-53.0)
[2025-05-14 10:17] LABS: Hemoglobin 6.9 g/dL (13.5-16.0)
--- NOTE | 2025-05-14 14:02 | PD.RESPRO ---
Documentation for date of: 05/14/25 Subjective Subjective Interval history: Patient seen today at the bedside fine awake, alert, oriented x 3. No overnight events reported. Vital signs and labs reviewed. Hemoglobin noted to be around 6.9 today. Ordered 2 PRBC transfusions. Spoke to gastroenterology who recommended placing the patient n.p.o. for possible upper EGD today. If negative will have to consult general surgery to find source of bleeding. Exam Vital Signs Temp Pulse Resp BP Pulse Ox O2 Del Method 97.3 F 83 16 135/77 H 99 Room Air 05/14/25 13:35 05/14/25 13:35 05/14/25 13:35 05/14/25 13:35 05/14/25 13:35 05/14/25 12:00 Narrative Exam Physical Exam GENERAL: NAD, AAOx3 HEENT: Moist mucosa. Eyes open, symmetrical, & clear CARDIO: Heart RRR, no obvious murmurs PULM: No noted coughing/dyspnea CTA B/L, no R/W/R GI: Abdomen soft, nondistended, no pain on palpation. BSx4 SKIN/MSK/EXT: Bruises from upper extremities likely in the setting of multiple lab draws s, no pain on palpation. Pedal pulses present B/L NEURO: AAOx3, no focal neuro deficits, able to move all 4 extremities Objective Labs 05/15/25 05:10 05/15/25 05:10 Labs: Laboratory Results - last 24 hr 05/14/25 05/14/25 05:35 09:36 WBC 9.4 RBC 2.58 L Hgb 7.3 L 6.9 L* Hct 23.0 L 20.8 L* MCV 89 MCH 28.3 MCHC 31.7 RDW Std Deviation 65.2 H Plt Count 196 Neut % (Auto) 80 Lymph % (Auto) 10 [place] % (Auto) 7 Eos % (Auto) 1 Baso % (Auto) 0 Neut # (Auto) 7.4 Lymph # (Auto) 1.0 Bound[place] # (Auto) 0.7 Eos # (Auto) 0.1 Baso # (Auto) 0.0 Immature Gran # (Auto) 0.20 H Absolute Nucleated RBC 0.05 H Immature Gran % 2 H Nucleated RBC % 1 H Sodium 141 Potassium 3.7 Chloride 109 H Carbon Dioxide 21.8 Anion Gap 10 BUN 13 Creatinine 0.6 Estim Creat Clear Calc 98.0 eGFR > 60 BUN/Creatinine Ratio 22 H Glucose 157 H D Calculated Osmolality 284 Calcium 9.1 Corrected Calcium 9.7 Phosphorus 3.4 Magnesium 1.7 Total Bilirubin 0.2 L AST 14 ALT 19 Alkaline Phosphatase 52 Total Protein 5.0 L Albumin 3.3 L Globulin 1.7 L Albumin/Globulin Ratio 1.9 Blood Type B Positive Antibody Screen NEGATIVE Crossmatch See Detail Blood Bank Wristband ID Yes Quality Measures Quality Measures VTE prophylaxis Assessment & Plan Assessment Current Active Medications: Generic Name Dose Route Start Last Admin Trade Name Freq PRN Reason Stop Dose Admin Acetaminophen 650 mg 05/10/25 15:57 05/11/25 03:28 Acetaminophen 325 Mg Tablet PO 06/09/25 15:56 650 mg Q6H PRN Administration PAIN SCALE 1-3 (mild Hydrocodone Bitart/Acetaminophen 1 tab 05/10/25 16:03 05/13/25 23:42 Hydrocodone/Apap 5/325 Tablet PO 05/15/25 16:02 1 tab Q4HR PRN Administration PAIN SCALE 4-10(Mod-Sev Dextrose 25 ml 05/10/25 16:16 Dextrose 50%-Water Inj 50 Ml Syringe IV 06/09/25 16:15 Q15MIN PRN BG 50-70 responsive npo pt Dextrose 50 ml 05/10/25 16:16 Dextrose 50%-Water Inj 50 Ml Syringe IV 06/09/25 16:15 Q15MIN PRN BG <50 OR BG <70 & pt unresponsive Glucagon 1 mg 05/10/25 16:16 Glucagon Inj 1 Mg Vial IM Q15MIN PRN BG <70, and no IV access Pantoprazole Sodium 80 mg in 100 mls @ 10 mls/hr 05/13/25 21:00 05/14/25 06:05 Protonix/Ns 80mg Iv Premix IV 05/15/25 20:59 10 mls/hr Q10H EL Administration Insulin Glargine 30 unit 05/12/25 21:00 05/13/25 20:18 Insulin Glargine (Lantus) 5 Unit/0.05 Ml (Per 5 Units) SC 06/11/25 20:59 30 unit QPM EL Administration Insulin Human Lispro 0 unit 05/13/25 10:35 05/14/25 12:03 Insulin Lispro (Admelog) 1 Unit/0.01 Ml Unit SC 06/10/25 23:14 4 unit ACHS EL Administration Protocol Ondansetron HCl 4 mg 05/10/25 16:26 Ondansetron Inj 2 Mg/Ml Inj 2 Ml IVP 06/09/25 16:25 Q6HR PRN NAUSEA OR VOMITING Protocol Sennosides 1 tab 05/10/25 15:57 Senna Tablet PO 06/09/25 15:56 BID PRN CONSTIPATION Protocol Sucralfate 1 gm 05/10/25 17:00 05/14/25 12:33 Sucralfate 1 Gm Tablet PO 06/09/25 16:59 Not Given QID EL Plan 60M with history of upper GI bleed s/p EGD with 3 bandings, HTN, DM2, HLD, hypothyroidism, BPH, diverticulosis admitted for concern of another episode of upper GI bleed. Consult GI, okay with discharge on 05/13 if Hgb stable. Advised outpt PCP follow up for weekely CBC to trend H/H. Diet Advanced to PUD diet. #Upper GI Bleed #History of duodenal ulcer s/p EGD with bandings Pt has significant history of upper GI bleed. Admitted recently on 02/24/25 for anemia, EGD showed duodenal ulcers. 4pRBC, 1 FFP, 1 platelet was transfused due to hemodynamic stability overnight on 02/25/25. Pt was transfered to [facility] for IR embolization of the gastric-duodenal artery per GI recommendation. At [facility] CTA was obtained and showed no evidence of active bleeding, IR consulted for embolization was deemed unwarranted. Dx: - EGD - May consider another CTA if pt hemoglobin decrease overnight. Plan: - Sucralfate 1gm PO QID - Contiunue Pantoprazole drip 8mg/h per GI recommendation. - Monitor CBC, Blood transfusion if Hgb < 7 - Transfuse 2 PRBCs, EGD today - NPO - Monitor VS closely #Acute on Chronic Anemia #Acute blood loss, likely due to hemodilution Initial Hgb 11.3, repeat Hgb 8.8 05/10. Retic count high 5.6. Iron low 27. Iron sat low 11%. Ferritin 272. 8/1: Hgb stable at 8.4. Dx: - Daily CBC - Trend H/H - Iron panel, ferritin, rectic count ordered 05/10 Plan: - blood transfusion if Hgb < 7, type and Screen ordered 05/10 #Leukocytosis - downtrending Initial WBC 19.8. Does not meet SIRS criteria. Likely due to steroid injection pt received to his R knee vs infectious origin. Dx: - Blood Culture NG @ 48H Plan: - Daily CBC - Watch for signs of fever > 100.3F #Insulin dependent DM 2 03/04/25 A1C 7.2%. Dx: - 05/11 A1C 6.4%, within goal of < 7% Plan: - Diet and lifestyle modification. - Insulin sliding scale - Continue Insulin Glargine 30U, increased from 25U #Electrolyte Abnormalities - resolved #Hypophophatemia - resolved #Hypomagnemia -resolved Initial Mag 0.9, Phos 2.3 Dx: - daily chem, mag, and phos Plan: - Keep Mag > 2, K > 4, replete as needed. Dispo: MedTele DVT prophylaxis: SCDs GI prophylaxis: Protonix drig 8mg/h Diet: NPO Lines: Peripheral IV Code status: Full code Case discussed with my attending Dr. Jermaine Ceja MD PGY-1 Attending Provider Attestation/Addendum I have examined the patient, reviewed labs and imaging findings, discussed the case with the resident(s), and reviewed entered orders. I agree with the plan of care as outlined in this note, with these additional summaries/recommendations: Patient seen at bedside. No acute overnight events. Patient has no acute complaints today. Unfortunately patient's hemoglobin again is downtrending. Hemoglobin 6.9 this morning and PRBCs ordered. Follow-up posttransfusion H&H. Case discussed with gastroenterology and patient will go for repeat EGD today 05/14/2025. Continue n.p.o. for now. Patient is status post EGD days prior which revealed nonbleeding gastric ulcer (Brian class III) and gastritis. Biopsies were taken and pending report. Continue Protonix gtt. Given the severity of patient's drop in hemoglobin he will remain hospitalized. Continue to avoid NSAIDs, chemical anticoagulation, aspirin, steroids, alcohol, smoking. Patient also found to have uncontrolled blood sugars which continues to improve with adjustment of insulin regimen. Patient has underlying diabetes mellitus type 2 with A1c 6.4%. Will continue to adjust basal bolus insulin to goal of 140-180 while hospitalized. Patient updated on the plan and in agreement. All questions answered to satisfaction. Please see residents note for additional details of management. Dr. Jermaine MD
--- NOTE | 2025-05-14 14:58 | SUR.PHASEI ---
1458 patient arrived to recovery resting comfortably in [facility], drowsy and able to arouse with verbal prompting, breathing unlabored, vital signs stable, denies pain and nausea, blood transfusion running via IV pump at 175ml/hr, will monitor, report received from Aylin GEORGES
--- NOTE | 2025-05-14 15:10 | SUR.PHASEI ---
1510 blood transfusion of PRBC's completed, no reaction noted
--- NOTE | 2025-05-14 15:37 | SUR.PHASEI ---
1535 Report given to Juan Carlos RN, patient meets discharge criteria from recovery, awake and talking with staff, breathing unlabored, vital signs stable, denies pain and nausea 1537 Patient transported via gurney to room 356, patient accompanied, patient able to ambulate from rney to bed with stand by assist, Joy GEORGES and Juan Carlos promptly in patients room, patient resting comfortably in bed with Joy and bedside when this freelance copywriter left patients room
--- NOTE | 2025-05-14 16:11 | PC.SS ---
SS follow up note; Patient's HMG is low, Patient is pending endoscopy with Dr. Alanis. Patient will discharge home when medically cleared.
[2025-05-14] MEDS: INSULIN GLARGINE (Lantus) 5 UNIT/0.05 ML (PER 5 UNITS) 30 UNIT SC (20:48)
[2025-05-14] MEDS: HYDROcodone/APAP 5/325 TABLET 1 TAB PO (23:04)
[2025-05-14 23:23] LABS: Hematocrit 30.0 % (41.0-53.0); Hemoglobin 10.0 g/dL (13.5-16.0)
[2025-05-15] VITALS (8 sets, daily range): BP systolic 154–180; BP diastolic 80–89; PULSE 67–89; RESP 17–18; TEMP 36.3–36.8; O2SAT 97–99; BMI 27.8
[2025-05-15] MEDS: PANTOPRAZOLE/NS 80MG IV PREMIX 80 MG/100 ML BAG 10 MG IV (03:56)
[2025-05-15] MEDS: SUCRALFATE 1 GM TABLET PO ×4 (05:25→20:17)
[2025-05-15 05:57] LABS: Basophils # (Auto) 0.0 Thou/mm3 (0.0-0.2); Basophils % (Auto) 0 % (0-2.5); Eosinophils # (Auto) 0.1 Thou/mm3 (0.0-0.5); Eosinophils % (Auto) 1 % (0-10); Hematocrit 29.0 % (41.0-53.0); Hemoglobin 9.8 g/dL (13.5-16.0); Immature Granulocytes Auto 0.18 Thou/mm3 (0.00-0.00); Lymphocytes # (Auto) 1.0 Thou/mm3 (1.0-4.8); Lymphocytes % (Auto) 11 % (10-50); Mean Corpuscular HGB Conc 33.8 g/dl (31.0-37.0); Mean Corpuscular Hemoglobin 29.3 pg (25.0-35.0); Mean Corpuscular Volume 87 fL (80-100); Monocytes # (Auto) 0.7 Thou/mm3 (0.0-0.8); Monocytes % (Auto) 8 % (0-12); Neutrophils # (Auto) 7.1 Thou/mm3 (1.8-7.7); Neutrophils % (Auto) 77 % (37-80); Nucleated Red Blood Cell # 0.05 Thou/mm3 (0.00-0.00); Nucleated Red Blood Cell % 1 /100 WBC (0); Platelet Count 189 Thou/mm3 (140-440); RDW Standard Deviation 54.4 fL (35.1-43.9); Red Blood Count 3.34 Miln/mm3 (4.50-5.90); White Blood Count 9.1 Thou/mm3 (3.8-10.6)
[2025-05-15 06:18] LABS: Alanine Aminotransferase 18 U/L (10-49); Albumin, Serum 3.3 gm/dL (3.4-4.8); Albumin/Globulin Ratio 2.1 (1.2-2.2); Alkaline Phosphatase 54 U/L (46-116); Anion Gap 10 (7-16); Aspartate Amino Transferase 14 U/L (0-34); BUN/Creatinine Ratio 18 Ratio (12-20); Bilirubin,Total 0.3 mg/dL (0.3-1.2); Blood Urea Nitrogen 9 mg/dL (9-23); Calcium 8.6 mg/dL (8.3-10.6); Calcium (Corrected) 9.2 mg/dL (8.5-10.1); Carbon Dioxide 20.7 mMol/L (20.0-31.0); Chloride 112 mMol/L (98-107); Creatinine (Component) 0.5 mg/dL (0.6-1.3); Estimated Creatinine Clearance 117.6 mL/min (>60); Globulin 1.6 gm/dL (2.3-3.5); Glucose 91 mg/dL (74-106); Magnesium 1.1 mg/dL (1.6-2.6); Osmolality,Calculated 283 (275-295); Phosphorous 3.6 mg/dL (2.4-5.1); Potassium 3.5 mMol/L (3.4-5.1); Sodium 143 mMol/L (136-145); Total Protein 4.9 gm/dL (5.7-8.2); eGFR > 60 See Note
--- NOTE | 2025-05-15 10:24 | ESPR_ITS ---
<Statement entered by Anton Ceja MD - 05/15/25 17:33> Patient was examined and case was reviewed with team including attending physician. Note reviewed, I agree with most of its contents and agree with the patient's care. Patient seen today at the bedside found awake, alert, orientedx3. No overnight events reported. Vitals and labs reviewed. Hemoglobin of 10 after 2 units of PRBCs transfusion. Hemoglobin today 9.8 and repeat H&H 9.7. Consider doing CTA however bleeding at this time seems unlikely. Patient had endoscopy done again yesterday which was unremarkable no active bleeding noted. Will follow-up hemoglobin in the morning and if hemoglobin remained stable can be safely discharged. Case discussed with my attending Dr. Jermaine Ceja MD PGY-2 Documentation for date of: 05/15/25 Subjective Subjective Interval history: No overnight events. Evaluated at bedside. Post 2pRBC transfusion Hgb on 05/14 10.0. 5AM lab today showed Hgb of 9.8. Repeat Hgb at 10AM 9.7. Decided not to proceed with CTA at this time since pt bleeding unlikely. EGD on 05/14 unremarkable, no active bleeding noted. Pending Hgb lab tmr morning, likely D/C if Hgb stable and after discussing with Dr. Alanis tmr morning. Exam Vital Signs Temp Pulse Resp BP Pulse Ox O2 Del Method O2 Flow Rate 98.2 F 76 18 168/89 H 97 Room Air 3 05/15/25 08:00 05/15/25 08:00 05/15/25 08:00 05/15/25 08:00 05/15/25 08:00 05/15/25 08:00 05/14/25 14:50 Narrative Exam General: Well appearing, well nourished, in no distress. Oriented x 3, normal mood and affect. Ambulating without difficulty. Skin: Good turgor, unusual bruising to posterior R lower extremity. Heart: No cardiomegaly or thrills; regular rate and rhythm, no murmur or gallop. Lungs: Clear to auscultation and percussion. No rales, wheeze, or rhonchi Abdomen: No distention, tenderness, guarding. Back: Spine normal without deformity or tenderness, no CVA tenderness Extremities: No amputations or deformities, cyanosis, edema or varicosities, peripheral pulses intact. Objective Labs 05/16/25 05:56 05/16/25 05:56 Labs: Laboratory Results - last 24 hr 05/14/25 05/14/25 05/15/25 09:36 23:14 05:10 WBC 9.1 RBC 3.34 L Hgb 10.0 L D 9.8 L Hct 30.0 L 29.0 L MCV 87 MCH 29.3 MCHC 33.8 RDW Std Deviation 54.4 H Plt Count 189 Neut % (Auto) 77 Lymph % (Auto) 11 [place] % (Auto) 8 Eos % (Auto) 1 Baso % (Auto) 0 Neut # (Auto) 7.1 Lymph # (Auto) 1.0 [place] # (Auto) 0.7 Eos # (Auto) 0.1 Baso # (Auto) 0.0 Immature Gran # (Auto) 0.18 H Absolute Nucleated RBC 0.05 H Immature Gran % 2 H Nucleated RBC % 1 H Sodium 143 Potassium 3.5 Chloride 112 H Carbon Dioxide 20.7 Anion Gap 10 BUN 9 Creatinine 0.5 L Estim Creat Clear Calc 117.6 eGFR > 60 BUN/Creatinine Ratio 18 Glucose 91 D Calculated Osmolality 283 Calcium 8.6 Corrected Calcium 9.2 Phosphorus 3.6 Magnesium 1.1 L Total Bilirubin 0.3 AST 14 ALT 18 Alkaline Phosphatase 54 Total Protein 4.9 L Albumin 3.3 L Globulin 1.6 L Albumin/Globulin Ratio 2.1 Blood Type B Positive Antibody Screen NEGATIVE Crossmatch See Detail Blood Bank Wristband ID Yes Quality Measures Quality Measures VTE prophylaxis Assessment & Plan Assessment Current Active Medications: Generic Name Dose Route Start Last Admin Trade Name Justin PRN Reason Stop Dose Admin Acetaminophen 650 mg 05/10/25 15:57 05/11/25 03:28 Acetaminophen 325 Mg Tablet PO 06/09/25 15:56 650 mg Q6H PRN Administration PAIN SCALE 1-3 (mild Hydrocodone Bitart/Acetaminophen 1 tab 05/10/25 16:03 05/14/25 23:04 Hydrocodone/Apap 5/325 Tablet PO 05/15/25 16:02 1 tab Q4HR PRN Administration PAIN SCALE 4-10(Mod-Sev Dextrose 25 ml 05/10/25 16:16 Dextrose 50%-Water Inj 50 Ml Syringe IV 06/09/25 16:15 Q15MIN PRN BG 50-70 responsive npo pt Dextrose 50 ml 05/10/25 16:16 Dextrose 50%-Water Inj 50 Ml Syringe IV 06/09/25 16:15 Q15MIN PRN BG <50 OR BG <70 & pt unresponsive Glucagon 1 mg 05/10/25 16:16 Glucagon Inj 1 Mg Vial IM Q15MIN PRN BG <70, and no IV access Magnesium Sulfate 4 gm in 50 mls @ 12.5 mls/hr 05/15/25 07:45 Magnesium Sulfate Ivpb IV 05/15/25 11:44 X1 ONE Magnesium Sulfate 4 gm in 50 mls @ 12.5 mls/hr 05/15/25 12:00 Magnesium Sulfate Ivpb IV 05/15/25 15:59 X1 ONE Potassium Chloride 10 meq in 100 mls @ 100 mls/hr 05/15/25 07:49 Kcl Ivpb IV 05/15/25 11:48 Q1H [facility] Insulin Glargine 30 unit 05/12/25 21:00 05/14/25 20:48 Insulin Glargine (Lantus) 5 Unit/0.05 Ml (Per 5 Units) SC 06/11/25 20:59 30 unit QPM EL Administration Insulin Human Lispro 0 unit 05/13/25 10:35 05/14/25 20:50 Insulin Lispro (Admelog) 1 Unit/0.01 Ml Unit SC 06/10/25 23:14 3 unit ACHS EL Administration Protocol Non-Formulary Medication 40 mg 05/15/25 10:30 Benazepril PO 06/14/25 10:29 DAILY [facility] Ondansetron HCl 4 mg 05/10/25 16:26 Ondansetron Inj 2 Mg/Ml Inj 2 Ml IVP 06/09/25 16:25 Q6HR PRN NAUSEA OR VOMITING Protocol Pantoprazole Sodium 40 mg 05/15/25 21:00 Pantoprazole Inj 40 Mg Vial IVP 06/14/25 20:59 BID EL Sennosides 1 tab 05/10/25 15:57 Senna Tablet PO 06/09/25 15:56 BID PRN CONSTIPATION Protocol Sucralfate 1 gm 05/10/25 17:00 05/15/25 05:25 Sucralfate 1 Gm Tablet PO 06/09/25 16:59 1 gm QID EL Administration Tamsulosin HCl 0.4 mg 05/15/25 10:30 Tamsulosin Hcl 0.4 Mg Capsule PO 06/14/25 10:29 QDAY EL Plan 60M with history of upper GI bleed s/p EGD with 3 bandings, HTN, DM2, HLD, hypothyroidism, BPH, diverticulosis admitted for concern of another episode of upper GI bleed. Consult GI, okay with discharge on 05/13 if Hgb stable. Advised outpt PCP follow up for weekely CBC to trend H/H. Diet Advanced to PUD diet. Pt's AM lab on 05/14 showed a Hgb of 6.9, 2pRBC transfused. Post transfusion h/h 08/09. EGD on 05/14 showed no active bleeding ulcer. AM lab on 05/15 showed Hgb of 9.8. Pending AM Hgb, if stable likely D/C after discussing with Dr. Alanis. #Upper GI Bleed #History of duodenal ulcer s/p EGD with bandings Pt has significant history of upper GI bleed. Admitted recently on 02/24/25 for anemia, EGD showed duodenal ulcers. 4pRBC, 1 FFP, 1 platelet was transfused due to hemodynamic stability overnight on 02/25/25. Pt was transfered to [facility] for IR embolization of the gastric-duodenal artery per GI recommendation. At [facility] CTA was obtained and showed no evidence of active bleeding, IR consulted for embolization was deemed unwarranted. 05/14: Morning Hgb 6.9, 2pRBC transfused. EGD showed no active bleeding ulcer. Dx: - EGD - May consider another CTA if pt hemoglobin decrease overnight. Plan: - Sucralfate 1gm PO QID - D/C Pantoprazole drip 8mg/h, switch to Protonix 40 PO - Monitor CBC, Blood transfusion if Hgb < 7 - Transfused 2 PRBCs on 05/14, post-transfusion h/h 08/09 - Full liquid diet - Monitor VS closely #Acute on Chronic Anemia #Acute blood loss, likely due to hemodilution Initial Hgb 11.3, repeat Hgb 8.8 05/10. Retic count high 5.6. Iron low 27. Iron sat low 11%. Ferritin 272. 8/1: Hgb stable at 8.4. 05/14: Hgb 6.9, 2pRBC transfused. Dx: - Daily CBC - Trend H/H - Iron panel, ferritin, rectic count ordered 05/10 Plan: - blood transfusion if Hgb < 7, type and Screen ordered 05/10 #Insulin dependent DM 2 03/04/25 A1C 7.2%. Dx: - 05/11 A1C 6.4%, within goal of < 7% Plan: - Diet and lifestyle modification. - Insulin sliding scale - Continue Insulin Glargine 30U, increased from 25U #Hypertension Chronic medical problem Plan: - Start home med amlodipine 5mg PO QD, HCTZ 25mg PO QD, lisinopril 40mg QD - Outpt PCP followup #BPH Chronic medical problem Plan: - Start home med tamsulosin 0.4mg PO QD - Outpt PCP followup #Electrolyte Abnormalities - resolved #Hypophophatemia - resolved #Hypomagnemia -resolved Initial Mag 0.9, Phos 2.3 Dx: - daily chem, mag, and phos Plan: - Keep Mag > 2, K > 4, replete as needed. #Leukocytosis - Resolved Initial WBC 19.8. Does not meet SIRS criteria. Likely due to steroid injection pt received to his R knee vs infectious origin. Dx: - Blood Culture NG @ 5 days. Plan: - Daily CBC - Watch for signs of fever > 100.3F Dispo: MedTele DVT prophylaxis: SCDs GI prophylaxis: Protonix 40 Diet: Full liquid diet Lines: Peripheral IV Code status: Full code Case discussed with my senior resident Dr. Carlos Case discussed with my attending Dr. Jermaine Henderson, DO PGY 1 Attending Provider Attestation/Addendum I have examined the patient, reviewed labs and imaging findings, discussed the case with the resident(s), and reviewed entered orders. I agree with the plan of care as outlined in this note, with these additional summaries/recommendations: Patient seen at bedside. No acute overnight events. Yesterday patient was found to have a hemoglobin less than 7 yesterday. He received 2 units PRBCs with improvement of hemoglobin to 10. Patient underwent repeat EGD yesterday evening which showed nonbleeding gastric ulcer with clean ulcer base. Today hemoglobin is slightly decreased to 9.7. Given that patient has required multiple blood transfusions and rehospitalization within the last 2 months I would like to keep patient hospitalized and repeat hematology panel in a.m. before patient can be safely discharged. If hemoglobin drops again we will discuss with gastroenterology of any other interventions can be undertaken. Continue Protonix and Carafate. Given the severity of patient's drop in hemoglobin he will remain hospitalized. Continue to avoid NSAIDs, chemical anticoagulation, aspirin, steroids, alcohol, smoking. Patient also found to have uncontrolled blood sugars which continues to improve with adjustment of insulin regimen. Patient has underlying diabetes mellitus type 2 with A1c 6.4%. Will continue to adjust basal bolus insulin to goal of 140-180 while hospitalized. Patient updated on the plan and in agreement. All questions answered to satisfaction. Please see residents note for additional details of management. Dr. Jermaine MD
[2025-05-15] MEDS: Magnesium Sulfate 4 GM Ivpb 4 GM/50 ML BAG IV ×2 (10:25→15:44)
[2025-05-15 10:47] LABS: Hematocrit 29.0 % (41.0-53.0); Hemoglobin 9.7 g/dL (13.5-16.0)
[2025-05-15] MEDS: TAMSULOSIN HCL 0.4 MG CAPSULE PO (11:14)
--- NOTE | 2025-05-15 15:55 | PC.SS ---
SS follow up note; HMG is being monitored, patient will discharge home when medically cleared.
[2025-05-15] MEDS: INSULIN GLARGINE (Lantus) 5 UNIT/0.05 ML (PER 5 UNITS) 30 UNIT SC (20:19)
[2025-05-15] MEDS: INSULIN LISPRO (AdmeLOG) 1 UNIT/0.01 ML UNIT SC (20:20)
--- NOTE | 2025-05-15 20:58 | PD.IMPROG ---
Documentation for date of: 05/15/25 Subjective Subjective Interval history: Hemoglobin hematocrit at 9.7 and 29.0 Upper endoscopy did show the ulceration in the pylorus in the prepyloric region No biopsy taken this time Biopsies from the previous endoscopy showed of this ulcer chronic fibrosis and ulceration Cardiac and a funny portion of the stomach were also biopsies negative for H. pylori Exam Vital Signs Temp Pulse Resp BP Pulse Ox O2 Del Method O2 Flow Rate 98.0 F 82 18 154/80 H 98 Room Air 3 05/15/25 16:00 05/15/25 17:14 05/15/25 16:00 05/15/25 17:14 05/15/25 16:00 05/15/25 16:00 05/14/25 14:50 Objective Labs 05/15/25 10:21 05/15/25 05:10 Labs: Laboratory Results - last 24 hr 05/14/25 05/15/25 05/15/25 23:14 05:10 10:21 WBC 9.1 RBC 3.34 L Hgb 10.0 L D 9.8 L 9.7 L Hct 30.0 L 29.0 L 29.0 L MCV 87 MCH 29.3 MCHC 33.8 RDW Std Deviation 54.4 H Plt Count 189 Neut % (Auto) 77 Lymph % (Auto) 11 [place] % (Auto) 8 Eos % (Auto) 1 Baso % (Auto) 0 Neut # (Auto) 7.1 Lymph # (Auto) 1.0 [place] # (Auto) 0.7 Eos # (Auto) 0.1 Baso # (Auto) 0.0 Immature Gran # (Auto) 0.18 H Absolute Nucleated RBC 0.05 H Immature Gran % 2 H Nucleated RBC % 1 H Sodium 143 Potassium 3.5 Chloride 112 H Carbon Dioxide 20.7 Anion Gap 10 BUN 9 Creatinine 0.5 L Estim Creat Clear Calc 117.6 eGFR > 60 BUN/Creatinine Ratio 18 Glucose 91 D Calculated Osmolality 283 Calcium 8.6 Corrected Calcium 9.2 Phosphorus 3.6 Magnesium 1.1 L Total Bilirubin 0.3 AST 14 ALT 18 Alkaline Phosphatase 54 Total Protein 4.9 L Albumin 3.3 L Globulin 1.6 L Albumin/Globulin Ratio 2.1 Impressions Impression: Chronic prepyloric and pylorus ulcer biopsies negative for any malignancy or atypical cells H. pylori negative Continue current management and advance to peptic ulcer disease diet Assessment & Plan A&P Narrative # Leukocytosis # Abnormal CT scan of the abdomen and pelvis # Posthemorrhagic anemia Plan Patient had an endoscopy done on 02/25/2025 when he presented with a hemoglobin 6.1 g at that time he had a bleeding ulcer which was electrocoagulated with endoscopic intervention He might have ongoing bleeding from that site Consent obtained for fiberoptic esophagogastroduodenoscopy with possible biopsy possible therapeutic intervention under intravenous moderate sedation which has been scheduled for tomorrow IV Protonix N.p.o. midnight tonight Time Spent With Patient Time: Total time spent is greater than 50% in coordination of care (as documented) at patient's floor/unit and/or counseling patient:
[2025-05-15] MEDS: ACETAMINOPHEN 325 MG TABLET 650 MG PO (23:27)
[2025-05-16] VITALS: BP 147/81; PULSE 80; PULSE 81; RESP 18; TEMP 36.7; O2SAT 98
[2025-05-16 04:00] VITALS: BP 154/87; PULSE 79; PULSE 96; RESP 17; TEMP 36.7; O2SAT 99
[2025-05-16] MEDS: SUCRALFATE 1 GM TABLET PO ×2 (05:25→11:35)
[2025-05-16] MEDS: ACETAMINOPHEN 325 MG TABLET 650 MG PO (05:27)
[2025-05-16 06:00] VITALS: BMI 27.7
[2025-05-16 06:47] LABS: Basophils # (Auto) 0.0 Thou/mm3 (0.0-0.2); Basophils % (Auto) 1 % (0-2.5); Eosinophils # (Auto) 0.2 Thou/mm3 (0.0-0.5); Eosinophils % (Auto) 2 % (0-10); Hematocrit 29.9 % (41.0-53.0); Hemoglobin 9.8 g/dL (13.5-16.0); Immature Granulocytes Auto 0.17 Thou/mm3 (0.00-0.00); Lymphocytes # (Auto) 1.0 Thou/mm3 (1.0-4.8); Lymphocytes % (Auto) 12 % (10-50); Mean Corpuscular HGB Conc 32.8 g/dl (31.0-37.0); Mean Corpuscular Hemoglobin 28.5 pg (25.0-35.0); Mean Corpuscular Volume 87 fL (80-100); Monocytes # (Auto) 0.9 Thou/mm3 (0.0-0.8); Monocytes % (Auto) 11 % (0-12); Neutrophils # (Auto) 6.2 Thou/mm3 (1.8-7.7); Neutrophils % (Auto) 73 % (37-80); Nucleated Red Blood Cell # 0.03 Thou/mm3 (0.00-0.00); Nucleated Red Blood Cell % 0 /100 WBC (0); Platelet Count 230 Thou/mm3 (140-440); RDW Standard Deviation 57.1 fL (35.1-43.9); Red Blood Count 3.44 Miln/mm3 (4.50-5.90); White Blood Count 8.4 Thou/mm3 (3.8-10.6)
[2025-05-16 07:22] LABS: Alanine Aminotransferase 20 U/L (10-49); Albumin, Serum 3.5 gm/dL (3.4-4.8); Albumin/Globulin Ratio 2.1 (1.2-2.2); Alkaline Phosphatase 63 U/L (46-116); Anion Gap 10 (7-16); Aspartate Amino Transferase 15 U/L (0-34); BUN/Creatinine Ratio 12 Ratio (12-20); Bilirubin,Total 0.4 mg/dL (0.3-1.2); Blood Urea Nitrogen 7 mg/dL (9-23); Calcium 9.1 mg/dL (8.3-10.6); Calcium (Corrected) 9.5 mg/dL (8.5-10.1); Carbon Dioxide 23.2 mMol/L (20.0-31.0); Chloride 109 mMol/L (98-107); Creatinine (Component) 0.6 mg/dL (0.6-1.3); Estimated Creatinine Clearance 97.9 mL/min (>60); Globulin 1.7 gm/dL (2.3-3.5); Glucose 90 mg/dL (74-106); Magnesium 1.8 mg/dL (1.6-2.6); Osmolality,Calculated 281 (275-295); Phosphorous 4.3 mg/dL (2.4-5.1); Potassium 3.5 mMol/L (3.4-5.1); Sodium 142 mMol/L (136-145); Total Protein 5.2 gm/dL (5.7-8.2); eGFR > 60 See Note
[2025-05-16 08:00] VITALS: BP 175/89; PULSE 83; PULSE 95; RESP 18; TEMP 36.2; O2SAT 99
[2025-05-16] MEDS: TAMSULOSIN HCL 0.4 MG CAPSULE PO (08:17)
[2025-05-16 08:18] VITALS: BP 175/89; PULSE 95
[2025-05-16] MEDS: Magnesium Sulfate 4 GM Ivpb 4 GM/50 ML BAG IV (08:19)
--- NOTE | 2025-05-16 09:05 | ESDS_ITS ---
<Statement entered by Anton Ceja MD - 05/16/25 15:23> Patient was examined and case was reviewed with team including attending physician. Note reviewed, I agree with most of its contents and agree with the patient's care. Case discussed with my attending Dr. Jermaine Ceja MD PGY-2 Planned Discharge Date 05/16/25 DS: Providers Provider Date of admission: 05/10/25 15:57 Primary care physician: oJrge Corado PA-C Admitting Provider: Casa Merchant MD Attending Provider on Admission: Fuentes Dean MD Consults: 05/10/25 15:28 Consult to Gastroenterology Stat Comment: Consulting Provider: Joshua Alanis Attending Provider on DC: Fuentes Dean MD Discharging Provider: Tawanda Henderson DO Anticipated date of discharge: 05/16/25 DS: Diagnosis Problem List Completed Was Problem List Reviewed/Reconciled?: Yes Hospital Course Hospital Course Hospital course: Mr. Ceja is a 60M with history of upper GI bleed secondary to duodenal ulcer, HTN, DM2, HLD, hypothyroidism, BPH, and diverticulosis admitted for suspected upper GI bleed. Pt reported LLQ pain with melena for the past 2 days prior to admission. Initial Hgb stable at 11.[address] scan on 05/10 showed significant mucosal thickening involving the stomach. EGD performed on 05/11 showed normal esophagus, one non-bleeding gastric ulcer, and diffuse moderate inflammation in gastric antrum. Biopsy report on 05/10 showed ulcer with severe chronic and acute inflammation, and fibrosis. Negative for H.pylori. Negative for dysplasia. On 05/12, pt's Hgb decreased to 6.9, 1pRBC transfused. Post transfusion h/h 9.7/28.9. On 05/14, pt's Hgb decreased to 6.9 again, 2pRBC transfused. Post transfusion h/h 08/09. Another EGD was performed on 05/14, it showed normal esophagus, non-bleeding gastric ulcer, and normal second portion of duodenum. Pt's Hgb stable on 05/15 and day of discharge. Pt reported normal brown stool and denied bloody stool, melena, generalized weakness, dizziness, and able to ambulate independently today. Spoke with GI specialist who recommended weekly CBC and close followup outpt to monitor for Hgb drop. Pt was advised to continue taking PPI along with other home medications, and return to ER if concerned for GI bleed. Hgb stable at 9.8. VS Stable. Pt is medically and physically stable for discharge. Diagnosis #Acute blood loss, likely lower GI #Upper GI Bleed s/p EGD #Hx of upper GI bleed s/p banding #Acute on Chronic Anemia #Insulin dependent DM 2 #Hypertension #BPH Discharge Plan: Follow up with PCP within 1 week of discharge Follow up with GI for monitoring ulcers and biopsy results within 2 weeks of discharge Please take PPI and carafate as indicated for management of your ulcers Should your symptoms recur or worsen patient is instructed to return to the ED. Case discussed with my senior resident Dr. Carlos Case discussed with my attending Dr. Jermaine Henderson DO PGY 1 Time Spent with Patient Time attestation: Total time spent providing and/or coordinating discharge services: Time spent: Greater than 30 minutes Exam Vital Signs Temp Pulse Resp BP Pulse Ox O2 Del Method O2 Flow Rate 97.2 F 95 18 175/89 H 99 Room Air 3 05/16/25 08:00 05/16/25 08:18 05/16/25 08:00 05/16/25 08:18 05/16/25 08:00 05/16/25 08:00 05/14/25 14:50 Narrative Exam General: Well appearing, well nourished, in no distress. Oriented x 3, normal mood and affect . Ambulating without difficulty. Skin: Good turgor, no rash, unusual bruising or prominent lesions. R posterior leg bruise noted on admission. Head: Normocephalic, atraumatic, no visible or palpable masses, depressions, or scaring. Heart: No cardiomegaly or thrills; regular rate and rhythm, no murmur or gallop Lungs: Clear to auscultation and percussion. No rales, wheeze, or rhonchi Abdomen: Bowel sounds normal, no tenderness, organomegaly, masses, or hernia Back: Spine normal without deformity or tenderness, no CVA tenderness Extremities: No amputations or deformities, cyanosis, edema or varicosities, peripheral pulses intact. Discharge Plan Plan Patient Disposition: HOME (Self Care) Care Plan Goals: Follow up with PCP within 1 week of discharge Follow up with GI for monitoring ulcers and biopsy results within 2 weeks of discharge Please take PPI and carafate as indicated for management of your ulcers Should your symptoms recur or worsen patient is instructed to return to the ED. Realice un seguimiento con [place]ano m?dico de atenci?n primaria dentro de la semana posterior al david. Realice un seguimiento con be[place]ano gastroenter?logo para monitorear las ?lceras y obtener los resultados de la biopsia dentro de las 2 semanas posteriores al david. [place] IBP y carafate seg?n lo indicado para el manejo de mahendra ?lceras. Si los s?ntomas reaparecen o empeoran, se le indica al paciente que regrese a urgencias. Prescriptions/Referrals Prescriptions/Med Rec: New pantoprazole 40 mg tablet,delayed release (DR/EC) 40 mg PO QDAY Qty: 30 0RF sucralfate [Carafate] 1 gram tablet 1 g PO BID Qty: 60 0RF Continued atorvastatin 40 mg Tablet 40 mg PO QPM metformin 1,000 mg Tablet 1,000 mg PO BID hydrochlorothiazide 12.5 mg Tablet 12.5 mg PO QDAY tamsulosin 0.4 mg Capsule 0.4 mg PO QDAY Qty: 30 0RF finasteride 5 mg Tablet 5 mg PO QDAY Qty: 30 0RF benazepril 40 mg tablet 40 mg PO DAILY Patient Comments: take 1 tablet by mouth once daily magnesium oxide 400 mg magnesium capsule 400 mg PO BID Qty: 60 0RF insulin glargine [Jasonaglrambo YadavPen U-100 Insulin] 100 unit/mL (3 mL) insulin pen 35 unit SUBCUT QPM amlodipine 5 mg tablet 5 mg PO DAILY Patient Comments: take 1 tablet by mouth once daily ondansetron 4 mg tablet,disintegrating 4 mg PO TID PRN (Reason: nausea and vomiting) Patient Comments: dissolve 1 tablet on top of the tongue three times a day if needed for nausea and vomiting omeprazole 40 mg capsule,delayed release(DR/EC) 40 mg PO BID 30 Days Qty: 60 1RF hydrochlorothiazide 25 mg tablet 25 mg PO QDAY Referrals: Jorge Corado PA-C [Primary Care Provider] - Patient/Caregiver Discharge Instructions Education Materials: Bleeding Gastrointestinal Print Language: Luxembourgish Stand Alone Forms: Samantha Award Info., Patient Portal Info Letter Discharge Order Discharge Orders: Discharge (Routine); Ordered 05/16/25 Ordered By: Anton Ceja Quality Discharge Quality Measures none MD Attestestation MD Attestation I have examined the patient, reviewed labs and imaging findings, discussed the case with the resident(s), and reviewed entered orders. I agree with the plan of care as outlined in this note. Time Spent: [address] Jermaine MD
[2025-05-16] MEDS: INSULIN LISPRO (AdmeLOG) 1 UNIT/0.01 ML UNIT SC (11:35)
[2025-05-16 12:00] VITALS: BP 115/73; PULSE 74; PULSE 95; RESP 18; TEMP 36.1; O2SAT 94
--- NOTE | 2025-05-16 12:25 | PD.IMPROG ---
Documentation for date of: 05/16/25 Subjective Subjective Interval history: Case discussed with internal medicine team okay to discharge patient To be followed by the [facility] clinic Exam Vital Signs Temp Pulse Resp BP Pulse Ox O2 Del Method O2 Flow Rate 97.2 F 95 18 175/89 H 99 Room Air 3 05/16/25 08:00 05/16/25 08:18 05/16/25 08:00 05/16/25 08:18 05/16/25 08:00 05/16/25 08:00 05/14/25 14:50 Objective Labs 05/16/25 05:56 05/16/25 05:56 Labs: Laboratory Results - last 24 hr 05/16/25 05:56 WBC 8.4 RBC 3.44 L Hgb 9.8 L Hct 29.9 L MCV 87 MCH 28.5 MCHC 32.8 RDW Std Deviation 57.1 H Plt Count 230 D Neut % (Auto) 73 Lymph % (Auto) 12 [place] % (Auto) 11 Eos % (Auto) 2 Baso % (Auto) 1 Neut # (Auto) 6.2 Lymph # (Auto) 1.0 [place] # (Auto) 0.9 H Eos # (Auto) 0.2 Baso # (Auto) 0.0 Immature Gran # (Auto) 0.17 H Absolute Nucleated RBC 0.03 H Immature Gran % 2 H Nucleated RBC % 0 Sodium 142 Potassium 3.5 Chloride 109 H Carbon Dioxide 23.2 Anion Gap 10 BUN 7 L Creatinine 0.6 Estim Creat Clear Calc 97.9 eGFR > 60 BUN/Creatinine Ratio 12 Glucose 90 Calculated Osmolality 281 Calcium 9.1 Corrected Calcium 9.5 Phosphorus 4.3 Magnesium 1.8 Total Bilirubin 0.4 AST 15 ALT 20 Alkaline Phosphatase 63 Total Protein 5.2 L Albumin 3.5 Globulin 1.7 L Albumin/Globulin Ratio 2.1 Impressions Impression: Prepyloric and pylorus gastric ulcer Healing Okay to discharge the patient on PPI twice daily to be followed at the [facility] clinic Assessment & Plan A&P Narrative # Leukocytosis # Abnormal CT scan of the abdomen and pelvis # Posthemorrhagic anemia Plan Patient had an endoscopy done on 02/25/2025 when he presented with a hemoglobin 6.1 g at that time he had a bleeding ulcer which was electrocoagulated with endoscopic intervention He might have ongoing bleeding from that site Consent obtained for fiberoptic esophagogastroduodenoscopy with possible biopsy possible therapeutic intervention under intravenous moderate sedation which has been scheduled for tomorrow IV Protonix N.p.o. midnight tonight Time Spent With Patient Time: Total time spent is greater than 50% in coordination of care (as documented) at patient's floor/unit and/or counseling patient:
== END 2025-05-16 12:43 | disposition home or self-care (01) | DRG 241 ==
LOC: SERX 15:30 → SERHOLD 16:28 → S3NX 18:07
PROVIDERS: Physician Assistant; Specialist; Student in an Organized Health Care Education/Training Program; Admitting Provider Internal Medicine; Emergency Provider Family Medicine; PCP Family Medicine; Visit Provider Student in an Organized Health Care Education/Training Program
PROC: (CPT 43239; principal; 2025-05-11 19:00)
PROC: 0DJ08ZZ Inspection of Upper Intestinal Tract, Via Natural or Artificial Opening Endoscopic (ICD-10-PCS; CPT 43239; principal; 2025-05-14 13:45)
DX: K26.4 Chronic or unspecified duodenal ulcer with hemorrhage (principal); E78.5 Hyperlipidemia, unspecified; N40.0 Benign prostatic hyperplasia without lower urinary tract symptoms; I10 Essential (primary) hypertension; E03.9 Hypothyroidism, unspecified; D62 Acute posthemorrhagic anemia; D72.829 Elevated white blood cell count, unspecified; E83.42 Hypomagnesemia; E11.65 Type 2 diabetes mellitus with hyperglycemia; D50.0 Iron deficiency anemia secondary to blood loss (chronic); K25.4 Chronic or unspecified gastric ulcer with hemorrhage; Z79.4 Long term (current) use of insulin; Z79.84 Long term (current) use of oral hypoglycemic drugs
CPT/HCPCS: 36415; 71045; 74177; 80053; 81001; 82728; 83036; 83540; 83550; 83605; 83690; 83735; 84100; 84145; 84484; 85014; 85018; 85025; 85046; 85610; 85730; 86850; 86900; 86901; 86923; 87040; 93225; 96361; 96365; 96375; 96376; 99284; A4649; J1200; J1815; J2250; J2270; J2405; J2470; J2543; J2916; J3010; J3475; J3480; J3490; J7030; J7050; J7999; P9016; Q9967; A9270

== ENCOUNTER 2025-06-07 14:20 | Outpatient (RCR) | payer MEDICAID, SELFPAY ==
--- NOTE | 2025-06-12 00:34 | CTCFLWUP_ITS ---
Patient: ISABEL STONE : 1965 Page 3 of 4 FOLLOW UP NOTE DATE OF SERVICE: 06/07/2025 NAME: ISABEL STONE ACCOUNT: [id number] : 1965 AGE: 60 INTERVAL HISTORY: Marcial Hernandes, a male with gastritis and stomach ulcers, presented for follow- up after surgery to repair stomach perforations. CT scan showed inflammation but no cancer. Patient reported resolution of GI bleeding post-surgery. Previously prescribed iron supplementation for anemia was reportedly ineffective due to concurrent bleeding. Patient says he has not had bleeding since the last infusion. ONCOLOGY HISTORY: DIAGNOSIS: Iron deficiency anemia, unspecified [ICD10] D50.9 TREATMENT HISTORY: Care?Plan Start?Date Cycle Day Intent FERAheme?4?doses 10/12/2023 1 28 Palliative VENOfer?200mg?IV?wkly?for?5?weeks 11/10/2023 1 70 Palliative FERAheme 04/03/2024 1 30 Palliative FERAheme 10/25/2024 1 30 Palliative VENOfer?200mg?IV?wkly?for?10?weeks 04/09/2025 1 70 Maintenance HISTORY OF PRESENT ILLNESS: Subjective: Chief Complaint Follow-up for CT scan results, gastritis symptoms, post-surgical care for stomach ulcers, possible anemia History of Present Illness Marcial Hernandes presents for follow-up after a recent CT scan and surgical intervention for gastric ulcers. The patient reports a history of gastritis and recent gastrointestinal bleeding. The patient underwent a CT scan which revealed significant inflammation in his stomach, but no evidence of cancer. He recently had emergency surgery to repair holes in his stomach caused by ulcers. Since the surgery, the patient reports that he no longer experiences bleeding. Prior to the surgery, the patient was prescribed iron supplementation for anemia related to the gastrointestinal bleeding. However, he reports that the iron treatment may not have been very effective, stating, it was kind of like bleeding with the iron, so I don't know if it worked that much. The patient's current iron levels and hemoglobin status are unknown, pending new blood work. Medications and Supplements - Iron - Patient reports it caused bleeding. - Unclear if it was effective. Review of Systems Gastrointestinal: Positive for previous bleeding. Negative for current bleeding. Objective: Laboratory, Imaging, and Diagnostic Test Results - CT scan: Shows inflammation in the stomach, no cancer detected. OTHER MEDICAL HISTORY/CONDITIONS: diabetes aneia high blood pressure COVID hernia visaila?? stomach 2 mths ago had transfuison during that time FAMILY HISTORY: Patient?denies?family?cancer?history. 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 benazepril - 40 mg 1 tab Daily 2. Carafate - 1 gm Daily 3. Cymbalta - 60 mg Daily 4. finasteride - 5 mg 1 tab Daily 5. Lantus - As directed 6. metformin - 1,000 mg Twice a Day 7. omeprazole - 20 mg 1 Capsule Daily 8. pantoprazole - 40 mg 1 Daily 9. tamsulosin - 0.4 mg 1 Capsule Daily Medications Last Reconciled by Carie Coleman MD on 06/07/2025 ALLERGIES: No Known Drug Allergies REVIEW OF SYSTEMS: A complete 14-point review of systems was performed and is negative except as noted in interval history. PHYSICAL EXAMINATION: VITAL SIGNS: Temperature?97.8, B/P?156/72, Oxygen?Saturation?99% Weight?142?lbs PAIN: 0 - No pain The patient appeared well-nourished, alert, and in no apparent distress via video conferencing. LABORATORY DATA: I have personally reviewed and interpreted each of the patient?s relevant lab tests, abnormal findings are below: Date 05/15/25 05/16/25 ??WHITE?BLOOD?COUNT?(Thou/mm3) ? 8.4 ??RED?BLOOD?COUNT?(Miln/mm3) ? 3.44?L ??HEMOGLOBIN?(gm/dl) 9.7?L 9.8?L ??HEMATOCRIT?(%) 29.0?L 29.9?L ??PLATELET?COUNT?(Thou/mm3) ? 230 ??NEUTROPHILS?%,?AUTO?(%) ? 73 ??LYMPH?%,?AUTO?(%) ? 12 ??NEUTROPHILS,?AUTO?(Thou/mm3) ? 6.2 ??GLUCOSE,RANDOM?(mg/dL) ? 90 ??BLOOD?UREA?NITROGEN?(mg/dL) ? 7?L ??CREATININE?(mg/dL) ? 0.60 ??SODIUM?(mmol/L) ? 142 ??POTASSIUM?(mmol/L) ? 3.5 ??CHLORIDE?(mmol/L) ? 109?H ??CrCl?(CandG)?(ml/min) ? 120.39 ??AST/SGOT?(Unit/L) ? 15 ??ALT/SGPT?(Unit/L) ? 20 ??ALKALINE?PHOSPHATASE?(Unit/L) ? 63 ??BILIRUBIN,?TOTAL?(mg/dL) ? 0.4 ??PROTEIN?TOTAL?(gm/dl) ? 5.2?L ??ALBUMIN,?SERUM?(gm/dl) ? 3.5 ??GLOBULIN?(gm/dl) ? 1.7?L ??ALBUMIN/GLOBULIN?RATIO ? 2.1 ??CALCIUM,?SERUM?(mg/dL) ? 9.1 ??CALCIUM?SERUM?(CORRECTED)?(mg/dL) ? 9.5 ??MAGNESIUM?(mg/dL) ? 1.8 ASSESSMENT/PLAN: Assessment and Plan: Marcial Hernandes, male patient with history of gastritis and stomach ulcers, presenting for follow-up after recent surgery to repair stomach perforations. Gastritis with history of stomach ulcers and recent surgical repair Assessment: Patient has a history of severe gastritis with stomach ulcers that recently required surgical intervention to repair perforations. A CT scan showed significant inflammation in the stomach but no evidence of cancer. The patient's symptoms are likely attributed to the severe gastritis. There is a history of gastrointestinal bleeding, which has resolved post-surgery. Iron deficiency was previously noted and treated, but the patient reported that the iron supplementation may not have been effective due to concurrent bleeding. Can check iron studies every 3 to 4-month Patient advised to follow-up with primary care and with us if patient has bleeding again and need iron infusion Otherwise we will see him in 6 months with the prelabs ORDERS: Order # Description [id number] Comprehensive Metabolic Panel - 12 + CBC with Auto Diff [id number] Follow Up 6 Month [id number] RETURN TO CLINIC: I reviewed the diagnosis, prognosis, and recommended treatment/procedure options with the patient (and/or their legal retail customer service representative), including the potential benefits, risks, side effects and alternative therapies. We also discussed the option of no treatment and the possibility of clinical trial participation, if applicable. All questions were addressed, and they demonstrated understanding. They provided informed consent to proceed with the proposed plan of care. BILLING AND COMPLIANCE: I reviewed external records from providers outside my specialty as summarized above. I spent a total of 50 minutes on this patient?s care on the day of their visit excluding time spent related to any billed procedures. This time includes time spent with the patient as well as time spent documenting in the medical record, reviewing patients records and tests, obtaining history, placing orders, communicating with other healthcare professionals, counseling the patient, family or caregiver, and/or care coordination for the diagnoses above. Electronically Signed by: Jacobo Marion MD T: 12:31 AM CC: PCP: Jorge Corado Referring: Jorge Corado This document was completed utilizing speech recognition software. Grammatical errors, random word insertions, pronoun errors, and incomplete sentences are an occasional consequence of this system due to software limitations, ambient noise, and hardware issues. Any formal questions or concerns about the content, text or information contained within the body of this dictation should be directly addressed to the provider for clarification.
== END 2025-06-10 23:59 | disposition home or self-care (01) ==
LOC: SCTC 14:20
PROVIDERS: PCP Family Medicine; Referring Provider Family Medicine; Visit Provider Internal Medicine Hematology & Oncology
DX: Z09 Encounter for follow-up examination after completed treatment for conditions other than malignant neoplasm (principal); Z87.19 Personal history of other diseases of the digestive system
CPT/HCPCS: 99212; G0463

== ENCOUNTER 2025-07-05 13:05 | Outpatient (RCR) | payer MEDICAID, SELFPAY | END 2025-07-10 23:59 | disposition home or self-care (01) | LOC: SCTC 13:05 | PROVIDERS: PCP Family Medicine; Referring Provider Family Medicine; Visit Provider Internal Medicine Hematology & Oncology | DX: D50.9 Iron deficiency anemia, unspecified (principal); Z87.19 Personal history of other diseases of the digestive system | CPT/HCPCS: 96365; 96375; A4216; J1756; J2919; J3490; J7040 ==

== ENCOUNTER 2025-07-25 12:58 | Outpatient (RCR) | payer MEDICAID, SELFPAY | END 2025-08-10 23:59 | disposition home or self-care (01) | LOC: SCTC 12:58 | PROVIDERS: PCP Family Medicine; Referring Provider Family Medicine; Visit Provider Internal Medicine Hematology & Oncology | DX: D50.9 Iron deficiency anemia, unspecified (principal); Z87.19 Personal history of other diseases of the digestive system | CPT/HCPCS: 96365; 96375; A4216; J1756; J2919; J3490; J7040 ==

== ENCOUNTER 2025-08-20 13:51 | Outpatient (RCR) | payer MEDICAID, SELFPAY | END 2025-09-09 23:59 | disposition home or self-care (01) | LOC: SCTC 13:51 | PROVIDERS: PCP Family Medicine; Referring Provider Family Medicine; Visit Provider Nurse Practitioner Family | DX: D50.9 Iron deficiency anemia, unspecified (principal); Z87.19 Personal history of other diseases of the digestive system | CPT/HCPCS: 96365; 96375; 99212; J1756; J2919; J3490; J7040; G0463 ==

== ENCOUNTER 2025-09-09 05:09 | Emergency (ER) | payer MEDICAID, SELFPAY ==
[2025-09-09 05:16] VITALS: BP 128/76; PULSE 114; RESP 16; TEMP 36.3; O2SAT 99
--- NOTE | 2025-09-09 05:23 | XR_ITS ---
Examination: CT abdomen and pelvis without contrast. Coronal 3-D reconstructions. Sagittal 2-D reconstructions. Date and time of exam: September 09, 2025, 0536 hours, comparison May 10, 2025 INDICATIONS: Onset abdominal pain today CTDI: vol (mGy): 6.21 DLP: (mGycm): 350 Technique: Axial images of the abdomen have been obtained, 3 mm slice thickness Intravenous contrast material has not been administered. Low dose protocols were performed. One or more of the following dose reduction techniques were used; automated exposure control, adjustment of the mA and/or KV according to patient size, use of iterative reconstruction technique. Findings: Soft nodular opacities in both lower lobes, consider mild pneumonia No visualized liver or splenic lesion No gallstones No pancreatic or adrenal mass Perinephric stranding with mild renal scarring Normal appendix No bowel obstruction Scattered colonic diverticulosis, no diverticulitis Prostatomegaly AP dimension 4 cm with urinary bladder wall thickening Moderate osteopenia Subacute appearing compression fracture T12, depression superior endplate, clinical correlation advised IMPRESSION: Mild pneumonia both bases Perinephric stranding, consider urinary tract infection Normal appendix Prostatomegaly with urinary bladder wall thickening, consider cystitis, urinary tract outflow obstruction Subacute appearing compression fracture T12, clinical correlation advised, consider CT thoracic spine follow-up as clinically warranted
--- NOTE | 2025-09-09 05:23 | PD.EDRME ---
Rapid Medical Screening Exam RME Arrival date/time: 09/09/25 05:09 This is a case of 60-year-old male who have history of hypertension diabetes GERD gastric ulcer and anemia came in in the emergency room due to generalized abdominal pain nausea vomiting but no diarrhea no constipation persistence of the symptoms this patient decided to sought consult here in the emergency room Chief Complaint: Abdominal Pain Vital signs: Vital Signs Temperature 97.4 F 09/09/25 05:16 Pulse Rate 114 H 09/09/25 05:16 Respiratory Rate 16 09/09/25 05:16 Blood Pressure 128/76 09/09/25 05:16 Pulse Oximetry (%) 99 09/09/25 05:16 Oxygen Delivery Method Room Air 09/09/25 05:16 Exam: Abdominal exam generalized tenderness no guarding no rebound no rigidity no cva tendernesss Clinical Impression: Abdominal pain
[2025-09-09 05:58] VITALS: BP 115/68; PULSE 104; RESP 13; O2SAT 100
--- NOTE | 2025-09-09 06:10 | PRELIM_ITS ---
CT scan of the abdomen and pelvis without intravenous contrast (axial sections with sagittal and coronal reformats) September 09, 2025 0536 hours Clinical History: abd opain Comparison: No prior study is available for comparison. Findings: There are patchy nodular opacities in bilateral lower lobes. The liver, gallbladder, pancreas, spleen, and adrenals are unremarkable on this noncontrast study. Perinephric fat stranding bilaterally. No evidence of bowel obstruction. There are multiple colonic diverticula without evidence of diverticulitis.The appendix is within normal limits. There is no mesenteric or retroperitoneal adenopathy.The urinary bladder is underdistended. There is prostatomegaly with urinary bladder wall thickening, which may represent cystitis versus chronic urine outflowobstruction. There is no free fluid or free air. There are moderate bilateral hydrocele. Degenerative changes are identified in the spine. Impression: Perinephric fat stranding bilaterally. While nonspecific, the possibility of urinary infection cannot be excluded. Recommend clinical correlation. Colonic diverticulosis without evidence of diverticulitis. Prostatomegaly with cystitis versuschronic urine outflowobstruction. Moderate bilateral hydrocele. Patchy nodular opacities in bilateral lower lobes; inflammatory or infectious etiology. cannot be excluded. Recommend clinical correlation and follow-up. Other findings as described above. Report Electronically Signed By: Costa Stephens 09/09/2025 6:09:43 AM [EST]
[2025-09-09 06:27] LABS: Basophils # (Auto) 0.1 Thou/mm3 (0.0-0.2); Basophils % (Auto) 1 % (0-2.5); Eosinophils # (Auto) 0.4 Thou/mm3 (0.0-0.5); Eosinophils % (Auto) 3 % (0-10); Hematocrit 32.1 % (41.0-53.0); Hemoglobin 10.1 g/dL (13.5-16.0); Immature Granulocytes Auto 0.46 Thou/mm3 (0.00-0.00); Lymphocytes # (Auto) 1.5 Thou/mm3 (1.0-4.8); Lymphocytes % (Auto) 13 % (10-50); Mean Corpuscular HGB Conc 31.5 g/dl (31.0-37.0); Mean Corpuscular Hemoglobin 28.2 pg (25.0-35.0); Mean Corpuscular Volume 90 fL (80-100); Monocytes # (Auto) 0.9 Thou/mm3 (0.0-0.8); Monocytes % (Auto) 8 % (0-12); Neutrophils # (Auto) 8.2 Thou/mm3 (1.8-7.7); Neutrophils % (Auto) 72 % (37-80); Nucleated Red Blood Cell # 0.00 Thou/mm3 (0.00-0.00); Nucleated Red Blood Cell % 0 /100 WBC (0); Platelet Count 339 Thou/mm3 (140-440); RDW Standard Deviation 48.7 fL (35.1-43.9); Red Blood Count 3.58 Miln/mm3 (4.50-5.90); White Blood Count 11.4 Thou/mm3 (3.8-10.6)
[2025-09-09 06:33] LABS: Alanine Aminotransferase 33 U/L (10-49); Albumin, Serum 4.4 gm/dL (3.4-4.8); Albumin/Globulin Ratio 2.2 (1.2-2.2); Alkaline Phosphatase 85 U/L (46-116); Anion Gap 13 (7-16); Aspartate Amino Transferase 21 U/L (0-34); BUN/Creatinine Ratio 21 Ratio (12-20); Bilirubin,Total 0.2 mg/dL (0.3-1.2); Blood Urea Nitrogen 17 mg/dL (9-23); Calcium 10.3 mg/dL (8.3-10.6); Calcium (Corrected) 10.3 mg/dL (8.5-10.1); Carbon Dioxide 24.0 mMol/L (20.0-31.0); Chloride 106 mMol/L (98-107); Creatinine (Component) 0.8 mg/dL (0.6-1.3); Globulin 2.0 gm/dL (2.3-3.5); Glucose 115 mg/dL (74-106); Lipase 41 U/L (12-53); Osmolality,Calculated 287 (275-295); Potassium 3.4 mMol/L (3.4-5.1); Sodium 143 mMol/L (136-145); Total Protein 6.4 gm/dL (5.7-8.2); eGFR > 60 See Note
[2025-09-09] MEDS: ONDANSETRON INJ 2 MG/ML INJ 2 ML 4 MG IVP (06:40)
[2025-09-09] MEDS: MORPHINE SULF INJ 4 MG/ML VIAL IVP (06:41)
[2025-09-09] MEDS: SODIUM CHLORIDE 0.9% 1000 ML 1,000 ML 999 ML IV (06:43)
[2025-09-09 07:01] LABS: B-Type Natriuretic Peptide < 20 pg/mL (0-100)
[2025-09-09 07:16] LABS: Troponin I < 0.020 ng/mL (0.0-0.045)
[2025-09-09 07:19] VITALS: BP 103/66; PULSE 101; RESP 17; TEMP 36.6; O2SAT 98
[2025-09-09 08:20] LABS: Collection Type, Urine Clean Catch; Squamous Epithelial Cell,Urine 0 /hpf (0-5)
[2025-09-09 08:29] LABS: Bilirubin,Urine Negative (Negative); Blood,Urine Negative (Negative); Clarity,Urine Clear (Clear/Hazy); Color,Urine Lt-Yellow (Lt Yel-Yel); Glucose, Urine Negative (Negative); Ketones,Urine Negative (Negative); Leukocyte Esterase,Urine Negative (Negative); Nitrite,Urine Negative (Negative); PH,Urine 6.0 (5.0-7.0); Protein,Urine Trace (Neg - Trace); RBC,Urine 2 /hpf (0-3); Specific Gravity,Urine 1.019 (1.001-1.035); Urobilinogen,Urine Negative mg/dL (0.0-1.0); WBC,Urine < 1 /hpf (0-5)
--- NOTE | 2025-09-09 08:42 | PD.EDABDPN ---
ED Abdominal Pain RME/HPI General Chief Complaint: Abdominal Pain Stated complaint: ABDOMINAL PAIN Time seen by provider: 09/09/25 05:45 Arrival date/time: 09/09/25 05:09 RME / HPI RME / HPI narrative: DR. WALKER MAIN ED EVALUATION: 60-year-old male with past medical history of hypertension, diabetes, GERD, gastric ulcer, and anemia came to the Emergency Department for generalized abdominal pain with nausea and vomiting. He denies diarrhea, constipation, fever, or urinary complaints. He has had no previous surgeries. Symptoms persisted, prompting him to seek evaluation in the ER. No other complaints provided. Related Data Home Medications ?Medication ?Instructions ?Recorded ?Confirmed atorvastatin 40 mg tablet 40 mg PO QPM 12/29/18 09/09/25 hydrochlorothiazide 12.5 mg tablet 12.5 mg PO QDAY 11/25/19 09/09/25 metformin 1,000 mg tablet 1,000 mg PO BID 11/25/19 09/09/25 benazepril 40 mg tablet 40 mg PO DAILY 11/16/24 09/09/25 insulin glargine 100 unit/mL (3 35 unit subcut QPM 02/24/25 09/09/25 mL) subcutaneous pen (Basaglar KwikPen U-100 Insulin) amlodipine 5 mg tablet 5 mg PO DAILY 03/02/25 09/09/25 ondansetron 4 mg disintegrating 4 mg PO TID PRN nausea and vomiting 03/02/25 09/09/25 tablet hydrochlorothiazide 25 mg tablet 25 mg PO QDAY 05/11/25 09/09/25 Held on 09/09/25. Instructions: Order Change blood sugar diagnostic (True 09/09/25 09/09/25 Metrix Glucose Test Strip) levothyroxine 50 mcg tablet mcg 09/09/25 Previous Rx's ?Medication ?Instructions ?Recorded finasteride 5 mg tablet 5 mg PO QDAY #30 tabs 05/16/23 tamsulosin 0.4 mg capsule 0.4 mg PO QDAY #30 caps 05/16/23 magnesium oxide 400 mg PO BID #60 caps 01/23/25 omeprazole 40 mg capsule,delayed 40 mg PO BID 1 month #60 caps 03/03/25 release pantoprazole 40 mg tablet,delayed 40 mg PO QDAY #30 tabs 05/16/25 release acetaminophen 325 mg-DM 10 mg/10 15 ml PO Q4H PRN cold symptoms 8 09/09/25 mL oral liquid (Robitussin days #237 mL Cough-Sore Throat) albuterol sulfate 90 mcg/actuation 2 inh inhalation Q4H PRN shortness 09/09/25 aerosol inhaler (Ventolin HFA) of breath or wheezing #8.5 grams levofloxacin 500 mg tablet 500 mg PO Q24H 7 days #7 tabs 09/09/25 Allergies Allergy/AdvReac Type Severity Reaction Status Date / Time No Known Allergies Allergy Verified 05/10/25 09:14 Review of Systems Review of Systems Systems Reviewed: All systems reviewed, normal except as documented Constitutional Constitutional: Reports system reviewed and no additional complaints, except as documented Past Medical History Past Medical History CARDIAC: Positive Cardiac Disorders, Hypercholesterolemia, Edema and Hypertension GASTROINTESTINAL: Positive Gastrointestinal Disorders, Gastrointestinal Bleed and Ulcer MUSCULOSKELETAL: Positive Arthritis ENT: Positive Cataracts ENDOCRINE: Positive Endocrine Disorders and Diabetes Mellitus Type 2 HEMATOLOGIC: Positive Blood Disorders and Anemia PSYCHO/SOCIAL: Positive Anxiety Family History FAMILY HISTORY: Positive Family Cancer and Family Surgery Surgical History SURGICAL: Positive Ear Surgery, Eye Surgery and Abdominal Surgery Social History SMOKING STATUS: Never smoker SUBSTANCE USE: does not use Past Medical History Comments PMH COMMENT: Diabetes, hypertension, hyperlipidemia, gastritis, GERD, arthritis ED Exam Narrative Physical exam: General, patient is alert oriented x 4 Not in distress well-nourished Head and neck, atraumatic normocephalic Pupils equal reactive, ENT exam no mucous membranes Neck is supple tracheal stenosis was not large Chest, no chest tenderness Normal air entry bilaterally No added sounds Cardiovascular, normal heart sounds, no murmurs, no gallop, regular rate and rhythm Abdominal, soft nontender no enlarged organs Normal renal angles, bowel sounds are normal no organomegaly Genitourinary, no abdominal hernias, normal genitalia Lower extremity, no edema, no redness, no deformity Musculoskeletal, no joint effusion, no joint tenderness, Neuro, muscle power equal bilaterally, cranial nerves intact, no sensory deficits, no ataxia Skin, no rash no petechiae Course Quality Measures none Orders Category Date Time Status CT abdomen pelvis wo con Stat Exams 09/09/25 05:23 Completed BNP [B-Type Natriuretic Peptide] Stat Lab 09/09/25 06:23 Completed CBC Stat Lab 09/09/25 06:04 Completed Comprehensive Metabolic Panel Stat Lab 09/09/25 06:04 Completed Lipase Stat Lab 09/09/25 06:04 Completed Troponin I Stat Lab 09/09/25 06:04 Completed Urinalysis Stat Lab 09/09/25 08:15 Completed Levofloxacin [Levaquin] Med 09/09/25 10:42 Discontinued 500 mg PO X1 ONE Morphine* Inj Med 09/09/25 06:23 Active 4 mg IVP Q1H PRN Ondansetron Inj [Zofran Inj] Med 09/09/25 06:23 Discontinued 4 mg IVP X1 ONE Ringers Lactated 1000 ml [Lactated Ringers] 1,000 ml Med 09/09/25 06:24 Discontinued IV 999 mls/hr Sodium Chloride 0.9% 1000 ml [Ns] 1,000 ml Med 09/09/25 06:40 Discontinued IV 999 mls/hr Sodium Chloride 0.9% 500 ml [Ns] 500 ml Med 09/09/25 06:38 Discontinued IV 999 mls/hr Vital Signs Vital signs: Vital Signs Temperature 97.4 F 09/09/25 05:16 Pulse Rate 114 H 09/09/25 05:16 Respiratory Rate 16 09/09/25 05:16 Blood Pressure 128/76 09/09/25 05:16 Pulse Oximetry (%) 99 09/09/25 05:16 Oxygen Delivery Method Room Air 09/09/25 05:16 Abdominal Pain MDM MDM Narrative MDM Narrative:: I, Aurea Zhong am scribing for and in the presence of Dr. Walker. 60-year-old male with abdominal pain, nausea, and vomiting without diarrhea or urinary symptoms. Exam normal. Assessment for gastroenteritis, UTI, and pneumonia. Impression is abdominal pain with evidence of pneumonia and urinary findings on CT. Plan for abdomen and pelvis CT and labs. Labs showed mildly elevated WBC. CT abdomen and pelvis revealed mild pneumonia at both lung bases, perinephric stranding concerning for urinary tract infection, prostatomegaly with bladder wall thickening concerning for cystitis or urinary outflow obstruction, normal appendix, and subacute appearing T12 compression fracture. Plan is for home treatment with Levaquin for 7 days. Patient stable for discharge home with return precautions. Patient data External records reviewed:: [facility] previous records Clinical information provided by:: patient Social determinants that could affect healthcare access:: none Patient has the following chronic illnesses:: hypertension, diabetes, GERD, gastric ulcer, and anemia How is presenting disease/condition affected by chronic disease/condition?: exacerbated by Evaluation data The following diagnostics were reviewed and interpreted by me:: lab results, radiology exam(s) and EKG tracing(s) (EKG#1: Interpreted by me: sinus rhythm, rate 75, LVH changes) Lab and/or radiology exams considered but not ordered:: none Interpretation Summary: See MDM narrative above. RADIOLOGY Procedure(s): CT abdomen pelvis wo con Accession Number(s): [id number] cc: Jorge Corado PA-C; John Abbott MD; Rehana Salazar~ Examination: CT abdomen and pelvis without contrast. Coronal 3-D reconstructions. Sagittal 2-D reconstructions. Date and time of exam: September 09, 2025, 0536 hours, comparison May 10, 2025 INDICATIONS: Onset abdominal pain today CTDI: vol (mGy): 6.21 DLP: (mGycm): 350 Technique: Axial images of the abdomen have been obtained, 3 mm slice thickness Intravenous contrast material has not been administered. Low dose protocols were performed. One or more of the following dose reduction techniques were used; automated exposure control, adjustment of the mA and/or KV according to patient size, use of iterative reconstruction technique. Findings: Soft nodular opacities in both lower lobes, consider mild pneumonia No visualized liver or splenic lesion No gallstones No pancreatic or adrenal mass Perinephric stranding with mild renal scarring Normal appendix No bowel obstruction Scattered colonic diverticulosis, no diverticulitis Prostatomegaly AP dimension 4 cm with urinary bladder wall thickening Moderate osteopenia Subacute appearing compression fracture T12, depression superior endplate, clinical correlation advised IMPRESSION: Mild pneumonia both bases Perinephric stranding, consider urinary tract infection Normal appendix Prostatomegaly with urinary bladder wall thickening, consider cystitis, urinary tract outflow obstruction Subacute appearing compression fracture T12, clinical correlation advised, consider CT thoracic spine follow-up as clinically warranted Dictated By: John Abbott MD Medications / Prescriptions Medications or Prescriptions considered but not ordered:: none Medication administrations:: Medication Administration History Morphine Sulfate (Morphine Sulf Inj 4 Mg/Ml Vial) 4 mg IVP Q1H PRN PRN Reason: ABDOMINAL CRAMPING Last Admin: 09/09/25 06:41 Dose: 4 mg Documented By: FORD Discontinued Medications Lactated Ringer's (Lactated Ringers) 1,000 mls @ 999 mls/hr IV .Q1H1M ONE Stop: 09/09/25 07:24 Last Admin: 09/09/25 07:04 Dose: Not Given Documented By: FORD Non-Admin Reason: Cancelled by Provider Sodium Chloride (Ns) 500 mls @ 999 mls/hr IV .Q31M ONE Stop: 09/09/25 07:08 Sodium Chloride (Ns) 1,000 mls @ 999 mls/hr IV .Q1H1M ONE Stop: 09/09/25 07:40 Last Infusion: 09/09/25 07:50 Dose: Infused Documented By: CARLOS ALBERTO Admin: 09/09/25 06:43 Dose: 999 mls/hr Documented By: FORD Levofloxacin (Levofloxacin 250 Mg Tablet) 500 mg PO X1 ONE Stop: 09/09/25 10:43 Ondansetron HCl (Ondansetron Inj 2 Mg/Ml Inj 2 Ml) 4 mg IVP X1 ONE; Protocol Stop: 09/09/25 06:24 Last Admin: 09/09/25 06:40 Dose: 4 mg Documented By: FORD see above Consultations Consultation(s) initiated? (list below): No Diagnosis Differential diagnosis abdominal pain: other (gastroenteritis, UTI, and pneumonia) Most likely diagnosis given after review of the tests above:: Community acquired pneumonia Admission Indicated Admission indicated?: not indicated Admission Request Was there a request for admission?: No Disposition Plan Disposition Plan: Discharge Discharge Attestation Discharge Attestation: The patient and all family members were given an opportunity to ask questions and understood the discharge instructions. Discharge instructions specifically effects, indications for sooner follow up or return to the emergency department, and the expected course of current diagnosis. Patient condition: Stable Discharge Plan Plan Patient Disposition: HOME (Self Care) Patient condition on transfer: Stable Prescriptions/Referrals Prescriptions/Med Rec: New levofloxacin 500 mg tablet 500 mg PO Q24H 7 Days Qty: 7 0RF albuterol sulfate [Ventolin HFA] 90 mcg/actuation HFA aerosol inhaler 2 inh inhalation Q4H PRN (Reason: shortness of breath or wheezing) Qty: 8.5 0RF Robitussin Cough-Sore Throat 325-10 mg/10 mL liquid 15 ml PO Q4H PRN (Reason: cold symptoms) 8 Days Qty: 237 0RF No Action atorvastatin 40 mg Tablet 40 mg PO QPM metformin 1,000 mg Tablet 1,000 mg PO BID hydrochlorothiazide 12.5 mg Tablet 12.5 mg PO QDAY tamsulosin 0.4 mg Capsule 0.4 mg PO QDAY Qty: 30 0RF finasteride 5 mg Tablet 5 mg PO QDAY Qty: 30 0RF benazepril 40 mg tablet 40 mg PO DAILY Patient Comments: take 1 tablet by mouth once daily magnesium oxide 400 mg magnesium capsule 400 mg PO BID Qty: 60 0RF insulin glargine [Basaglar KwikPen U-100 Insulin] 100 unit/mL (3 mL) insulin pen 35 unit SUBCUT QPM amlodipine 5 mg tablet 5 mg PO DAILY Patient Comments: take 1 tablet by mouth once daily ondansetron 4 mg tablet,disintegrating 4 mg PO TID PRN (Reason: nausea and vomiting) Patient Comments: dissolve 1 tablet on top of the tongue three times a day if needed for nausea and vomiting omeprazole 40 mg capsule,delayed release(DR/EC) 40 mg PO BID 30 Days Qty: 60 1RF hydrochlorothiazide 25 mg tablet 25 mg PO QDAY pantoprazole 40 mg tablet,delayed release (DR/EC) 40 mg PO QDAY Qty: 30 0RF (DME) True Metrix Glucose Test Strip Strip levothyroxine 50 mcg tablet Patient Comments: TAKE 1 TABLET BY MOUTH EVERY DAY Referrals: Jorge Corado PA-C [Primary Care Provider] - In 1 week Problem List Clinical Impression: CAP (community acquired pneumonia) Patient/Caregiver Discharge Instructions Discharge Activity: activity as tolerated Education Materials: What Is Pneumonia?, ED Pneumonia (Adult) Print Language: Syriac Stand Alone Forms: Samantha Award Info., Patient Portal Info Letter
[2025-09-09 10:24] VITALS: BP 108/65; PULSE 86; RESP 16; TEMP 36.6; O2SAT 97
[2025-09-09 11:07] VITALS: BP 119/82; PULSE 78; RESP 20; O2SAT 96
== END 2025-09-09 11:08 | disposition home or self-care (01) ==
PROVIDERS: Nurse Practitioner Family; Emergency Provider Emergency Medicine; PCP Family Medicine
DX: J18.9 Pneumonia, unspecified organism (principal); R10.84 Generalized abdominal pain
CPT/HCPCS: 36415; 74176; 80053; 81001; 83690; 83880; 84484; 85025; 96361; 96374; 96375; 99284; J2270; J2405; J7030

== ENCOUNTER 2025-09-24 14:49 | Emergency (ER) | payer MEDICAID, SELFPAY ==
[2025-09-24 15:02] VITALS: BP 201/100; BP 215/81; PULSE 74; RESP 20; TEMP 37.2; O2SAT 100
--- NOTE | 2025-09-24 15:10 | XR_ITS ---
EXAMINATION: Lumbar spine 3 views TECHNIQUE: AP lateral: Lateral lower lumbar spine 3 views Date and time: September 24, 2025, 1518 hours INDICATIONS: Low back pain 4 days. FINDINGS: Mild old wedging T12 No lumbar fracture Moderate lumbar spondylosis Mild to moderate diffuse lumbar degenerative disc disease IMPRESSION: Mild to moderate diffuse lumbar degenerative disc disease
[2025-09-24 15:49] VITALS: BP 206/85; PULSE 82; RESP 20; TEMP 36.6; O2SAT 100
[2025-09-24] MEDS: KETOROLAC INJ 60 MG/2 ML VIAL IM (15:51)
--- NOTE | 2025-09-24 16:14 | EDNOTE_ITS ---
<Statement entered by Jackie Bazan MD - 09/25/25 17:49> As co-signing physician, I was present and available for consult prn. I concur with the plan and care as documented by the midlevel provider. ED Back Injury Pain RME/HPI General Chief Complaint: Back Pain/Injury Stated Complaint: PAIN FROM LOWER BACK DOWN TO L) KNEE Time Seen by Provider: 09/24/25 14:54 Source: patient Arrival date/time: 09/24/25 14:49 60-year-old male with a history of hyperlipidemia, hypertension, type 2 diabetes presents to the emergency room with a chief complaint of pain to his lower back that radiates down his left leg x 1 day Mode of arrival: ambulatory Limitations: no limitations Related Data Home Medications ?Medication ?Instructions ?Recorded ?Confirmed atorvastatin 40 mg tablet 40 mg PO QPM 12/29/18 hydrochlorothiazide 12.5 mg tablet 12.5 mg PO QDAY 09/09/25 metformin 1,000 mg tablet 1,000 mg PO BID 11/25/19 benazepril 40 mg tablet 40 mg PO DAILY 11/16/2408/13 insulin glargine 100 unit/mL (3 35 unit subcut QPM 09/09/25 mL) subcutaneous pen (Basaglar KwikPen U-100 Insulin) amlodipine 5 mg tablet 5 mg PO DAILY 03/02/2509/09 ondansetron 4 mg disintegrating 4 mg PO TID PRN nausea and vomiting 03/02/25 09/09/25 tablet hydrochlorothiazide 25 mg tablet 25 mg PO QDAY 5 09/09/25 Held on 09/09/25. Instructions: Order Change blood sugar diagnostic (True 09/09/25 09/09/25 Metrix Glucose Test Strip) levothyroxine 50 mcg tablet mcg 09/09/25 Previous Rx's ?Medication ?Instructions ?Recorded finasteride 5 mg tablet 5 mg PO QDAY #30 tabs tamsulosin 0.4 mg capsule 0.4 mg PO QDAY #30 caps 04/02 magnesium oxide 400 mg PO BID #60 caps 01/23 omeprazole 40 mg capsule,delayed 40 mg PO BID 1 month #60 caps 03/03/25 release pantoprazole 40 mg tablet,delayed 40 mg PO QDAY #30 ta bs 05/16/25 release albuterol sulfate 90 mcg/actuation 2 inh inhalation Q4 H PRN shortness 09/09/25 aerosol inhaler (Ventolin HFA) of breath or wheezing # 8.5 grams Allergies Allergy/AdvReac Type Severity Reaction Status Date / Time No Known Allergies Allergy Verified 09/24/25 14:52 Review of Systems Review of Systems Systems Reviewed: All systems reviewed, normal except as documented Constitutional Constitutional: Reports system reviewed and no additional complaints, except as documented, Denies fatigue, Denies fever(s), Denies headache(s) and Denies weakness Eyes Eyes: Reports system reviewed and no additional complaints, except as documented, Denies blurry vision and Denies change in vision ENT Ears, Nose, Mouth, and Throat: Reports system reviewed and no additional complaints, except as documented, Denies otalgia, Denies headache(s), Denies nasal congestion, Denies throat swelling and Denies vertigo Cardiovascular Cardiovascular: Reports system reviewed and no additional complaints, except as documented, Denies chest pain, Denies dyspnea and Denies dyspnea on exertion Respiratory Respiratory: Reports system reviewed and no additional complaints, except as documented, Denies chest congestion, Denies cough, Denies dyspnea, Denies dyspnea on exertion and Denies wheezing Gastrointestinal Gastrointestinal: Reports system reviewed and no additional complaints, except as documented, Denies abdominal pain, Denies cramping, Denies nausea and Denies vomiting Genitourinary Genitourinary: Reports system reviewed and no additional complaints, except as documented, Denies dysuria and Denies hematuria Musculoskeletal Musculoskeletal: Reports system reviewed and no additional complaints, except as documented, Reports arthralgias and Reports back pain Integumentary/Breasts Skin/Breast: Reports system reviewed and no additional complaints, except as documented and Denies wounds Neurologic Neurologic: Reports system reviewed and no additional complaints, except as documented, Denies confusion, Denies headache(s), Denies lack of coordination, Denies vertigo and Denies weakness Psychiatric Psychiatric: Reports system reviewed and no additional complaints, except as documented, Denies anxiety, Denies confusion, Denies depression, Denies paranoia, Denies suicidal ideation and Denies tactile hallucinations Endocrine Endocrine: Reports system reviewed and no additional complaints, except as documented and Denies fatigue Hematologic/Lymphatic Hematologic/Lymphatic: Reports system reviewed and no additional complaints, except as documented and Denies lymphadenopathy Allergic/Immunologic Allergic/Immunologic: Reports system reviewed and no additional complaints, except as documented, Denies throat swelling, Denies urticaria and Denies wheezing Past Medical History Past Medical History NEUROLOGIC: Negative Neurological Disorders, Seizures or Epilepsy CARDIAC: Positive Cardiac Disorders, Hypercholesterolemia, Edema and Hypertension; Negative Atrial Fibrillation, Angina, Atherosclerotic Heart Disease, Aneurysm or Congestive Heart Failure RESPIRATORY: Negative Chronic Obstructive Pulmonary Disease (COPD) or Asthma GASTROINTESTINAL: Positive Gastrointestinal Disorders, Gastrointestinal Bleed and Ulcer; Negative Cirrhosis GENITOURINARY: Negative Genitourinary Disorders or Renal Disease MUSCULOSKELETAL: Positive Arthritis; Negative Musculoskeletal Disorders ENT: Positive Cataracts ENDOCRINE: Positive Endocrine Disorders and Diabetes Mellitus Type 2; Negative Diabetes Mellitus Type 1 HEMATOLOGIC: Positive Blood Disorders and Anemia; Negative Sickle Cell Disease PSYCHO/SOCIAL: Positive Anxiety; Negative Depression OTHER HISTORY: Negative Autoimmune Disease, Blood Transfusions, Blood Transfusion Reaction, Anesthesia Reactions, Organ Transplant, Clostridium Difficile or Cancer Family History FAMILY HISTORY: Positive Family Cancer and Family Surgery; Negative Family Psychiatric Problems, Family Respiratory Disorders, Family Cardiac Disorders, Family Gastrointestinal Problems or Family Anesthesia Reaction Surgical History SURGICAL: Positive Ear Surgery, Eye Surgery and Abdominal Surgery; Negative Cardiac Surgery, Pacemaker, Endocrine Surgery, Nose Surgery, Oral Surgery, Joint Replacement or Organ Transplant Social History SMOKING STATUS: Never smoker SUBSTANCE USE: does not use ED Exam General Limitations: Present no limitations General appearance: Present alert and in no apparent distress Head Head exam: Present atraumatic Eye Eye exam: Present normal appearance, PERRL and EOMI ENT ENT exam: Present normal exam, normal oropharynx and mucous membranes moist Neck Neck exam: Present normal inspection, full ROM and trachea midline Chest Chest inspection: Present normal inspection and symmetric chest wall rise Respiratory Respiratory exam: Present normal lung sounds bilaterally Cardiovascular Cardiovascular exam: Present regular rate, normal rhythm and normal heart sounds Abdominal Exam Abdominal exam: Present soft and normal bowel sounds Extremities Exam Extremities exam: Present normal inspection and full ROM Back Exam Back exam: Present normal inspection, full ROM, tenderness, vertebral tenderness and sciatic notch tenderness (L) Neurological Exam Neurological exam: Present alert, oriented X3 and CN II-XII intact Psychiatric Psychiatric exam: Present normal affect and normal mood Skin Skin exam: Present warm, dry, intact and normal color Course Quality Measures none Orders Category Date Time Status XR lumbar spine 2-3V Stat Exams 09/24/25 15:10 Completed Ketorolac Inj [Toradol Inj] Med 09/24/25 15:10 Discontinued 60 mg IM X1 ONE Vital Signs Vital signs: Vital Signs Temperature 99.0 F 09/24/25 15:02 Pulse Rate 74 09/24/25 15:02 Respiratory Rate 20 09/24/25 15:02 Blood Pressure 201/100 H 09/24/25 15:02 Pulse Oximetry (%) 100 09/24/25 15:02 Oxygen Delivery Method Room Air 09/24/25 15:02 O2 saturation 100% within normal limits Back Pain / Injury MDM Narrative MDM Narrative:: 60-year-old male with a history of hyperlipidemia, hypertension, type 2 diabetes presents to the emergency room with a chief complaint of pain to his lower back that radiates down his left leg x 1 day Patient is hemodynamically stable and in no apparent distress Physical examination shows some tenderness with palpation to the lumbar area of the patient's spine the patient also has right sided sciatic notch tenderness that radiates from the hip all the way down to the calf Short of Toradol was given to the patient with significant improvement to the patient's symptoms X-ray of the lumbar spine was completed and was negative for any acute lumbar fracture. The x-ray did show some moderate diffuse lumbar degenerative disc disease. Patient was discharged and educated to follow-up with primary care provider in the next 24 to 48 hours and return to the emergency room for any evidence of worsening signs or symptoms Patient data External records reviewed:: [facility] previous records Clinical information provided by:: patient Social determinants that could affect healthcare access:: none Patient has the following chronic illnesses:: No chronic illness How is presenting disease/condition affected by chronic disease/condition?: no chronic disease Evaluation data The following diagnostics were reviewed and interpreted by me:: lab results and radiology exam(s) Lab and/or radiology exams considered but not ordered:: Labs and radiology exams considered and ordered Interpretation Summary: X-ray lumbar-FINDINGS: Mild old wedging T12 No lumbar fracture Moderate lumbar spondylosis Mild to moderate diffuse lumbar degenerative disc disease IMPRESSION: Mild to moderate diffuse lumbar degenerative disc disease Medications / Prescriptions Medications or Prescriptions considered but not ordered:: Medication given Medication administrations:: Medication Administration History Discontinued Medications Ketorolac Tromethamine (Ketorolac Inj 60 Mg/2 Ml Vial) 60 mg IM X1 ONE Stop: 09/24/25 15:11 Last Admin: 09/24/25 15:51 Dose: 60 mg Documented By: Medication given Consultations Consultation(s) initiated? (list below): No Diagnosis Differential diagnosis back pain/injury: strain of lumbar region and thoracic back pain Most likely diagnosis given after review of the tests above:: Strain of lumbar region Admission Indicated Admission indicated?: not indicated Admission Request Was there a request for admission?: No Disposition Plan Disposition Plan: Discharge Discharge Attestation Discharge Attestation: The patient and all family members were given an opportunity to ask questions and understood the discharge instructions. Discharge instructions specifically effects, indications for sooner follow up or return to the emergency department, and the expected course of current diagnosis. Patient condition: Stable Discharge Plan Plan Patient Disposition: HOME (Self Care) Discharge Disposition comment: Stable Prescriptions/Referrals Prescriptions/Med Rec: No Action atorvastatin 40 mg Tablet 40 mg PO QPM metformin 1,000 mg Tablet 1,000 mg PO BID hydrochlorothiazide 12.5 mg Tablet 12.5 mg PO QDAY tamsulosin 0.4 mg Capsule 0.4 mg PO QDAY Qty: 30 0RF finasteride 5 mg Tablet 5 mg PO QDAY Qty: 30 0RF benazepril 40 mg tablet 40 mg PO DAILY Patient Comments: take 1 tablet by mouth once daily magnesium oxide 400 mg magnesium capsule 400 mg PO BID Qty: 60 0RF insulin glargine [Basaglar KwikPen U-100 Insulin] 100 unit/mL (3 mL) insulin pen 35 unit SUBCUT QPM amlodipine 5 mg tablet 5 mg PO DAILY Patient Comments: take 1 tablet by mouth once daily ondansetron 4 mg tablet,disintegrating 4 mg PO TID PRN (Reason: nausea and vomiting) Patient Comments: dissolve 1 tablet on top of the tongue three times a day if needed for nausea and vomiting omeprazole 40 mg capsule,delayed release(DR/EC) 40 mg PO BID 30 Days Qty: 60 1RF hydrochlorothiazide 25 mg tablet 25 mg PO QDAY pantoprazole 40 mg tablet,delayed release (DR/EC) 40 mg PO QDAY Qty: 30 0RF (DME) True Metrix Glucose Test Strip Strip levothyroxine 50 mcg tablet Patient Comments: TAKE 1 TABLET BY MOUTH EVERY DAY albuterol sulfate [Ventolin HFA] 90 mcg/actuation HFA aerosol inhaler 2 inh inhalation Q4H PRN (Reason: shortness of breath or wheezing) Qty: 8.5 0RF Referrals: Jorge Corado PA-C [Primary Care Provider] - In 1 week Problem List Clinical Impression: Sciatica Patient/Caregiver Discharge Instructions Education Materials: ED Sciatica Additional Instructions: PPor favor, p?ngase en contacto con bejarano m?dico de cabecera en las pr?ximas 24 a 48 horas. Las radiograf?as de bejarano columna lumbar no mostraron hallazgos agudos. Si presenta alg?n signo o s?ntoma que empeore, regrese a la lillian de emergencias de inmediato. Print Language: [place] Stand Alone Forms: Samantha Award Info., Work/School Release, Patient Portal Info Letter PA/MAVIS Supervising Physician PA/MAVIS Supervising Physician: Dr. Gleason
[2025-09-24 16:33] VITALS: BP 184/82; PULSE 77; RESP 18; TEMP 37.1; O2SAT 99
== END 2025-09-24 16:34 | disposition home or self-care (01) ==
PROVIDERS: Emergency Provider Emergency Medicine; PCP Family Medicine
DX: M51.16 Intervertebral disc disorders with radiculopathy, lumbar region (principal)
CPT/HCPCS: 72100; 96372; 99283; J1885

== ENCOUNTER 2025-09-27 13:30 | Outpatient (RCR) | payer MEDICAID, SELFPAY | END 2025-10-10 23:59 | disposition home or self-care (01) | LOC: SCTC 13:30 | PROVIDERS: PCP Family Medicine; Referring Provider Family Medicine; Visit Provider Internal Medicine Hematology & Oncology | DX: D50.9 Iron deficiency anemia, unspecified (principal); Z87.19 Personal history of other diseases of the digestive system | CPT/HCPCS: 96365; 96375; J1756; J2919; J3490; J7040 ==